=== PATIENT | male | born 1950 | race Caucasian/White ===

== ENCOUNTER 2020-12-11 05:02 | Inpatient (IN) ==
--- NOTE | 2020-11-13 15:18 | PAT Medication Instructions ---
Medication Instructions Date of Service November 13, 2020 Home Medications acetaminophen [Tylenol] 325 mg PO QID PRN aspirin 81 mg PO QAM bumetanide [Bumex] 0.25 mg PO QAM carvedilol 6.25 mg PO HS cholecalciferol (vitamin D3) [Vitamin D3] 25 mcg PO QAM clopidogrel [Plavix] 75 mg PO QAM ferrous sulfate 324 mg PO QAM gabapentin 300 mg PO TID insulin glargine [Lantus U-100 Insulin] 65 unit SUBCUT QAM liraglutide [Victoza 2-Clem] 1.2 mg SUBCUT QAM lisinopril 2.5 mg PO HS rosuvastatin 40 mg PO HS spironolactone 25 mg PO QAM tamsulosin 0.4 mg PO QAM tramadol 50 mg PO Q8H PRN ASK your prescriber and surgeon clopidogrel [Plavix] 75 mg PO QAM (must be off medication for 7 days prior to surgery in order to get spinal anesthesia) DO NOT take the morning of surgery spironolactone 25 mg PO QAM liraglutide [Victoza 2-Clem] 1.2 mg SUBCUT QAM ferrous sulfate 324 mg PO QAM cholecalciferol (vitamin D3) [Vitamin D3] 25 mcg PO QAM bumetanide [Bumex] 0.25 mg PO QAM Take morning of surgery With a small sip of water, OTHERWISE NOTHING TO EAT OR DRINK AFTER MIDNIGHT: tamsulosin 0.4 mg PO QAM tramadol 50 mg PO Q8H PRN (okay to take up to 4 hours prior to surgery if needed) gabapentin 300 mg PO TID acetaminophen [Tylenol] 325 mg PO QID PRN (okay to take up to 4 hours prior to surgery if needed) aspirin 81 mg PO QAM Take evening before surgery acetaminophen [Tylenol] 325 mg PO QID PRN (if needed) carvedilol 6.25 mg PO HS gabapentin 300 mg PO TID lisinopril 2.5 mg PO HS rosuvastatin 40 mg PO HS tramadol 50 mg PO Q8H PRN (if needed) Insulin Dependent Diabetic Patients * Test your blood sugar the morning of surgery * If Blood Sugar is GREATER THAN 150, take HALF of your regular dose of: insulin glargine [Lantus U-100 Insulin] (32 units) * If Blood Sugar is LESS THAN 150, DO NOT TAKE ANY: insulin glargine [Lantus U- 100 Insulin] 65 unit SUBCUT QAM Other Notes If you have any questions please call us at [phone] or [phone] or [phone] or [phone]
--- NOTE | 2020-11-16 11:36 | Anesthesiology Consultation ---
Date of Service November 16, 2020 Assessment & Plan (1) Encounter for pre-operative examination: - Patient scheduled to see cardiology prior to surgery. Awaiting office visit note. - Hyperkalemia/anemia (on preop labs): Potassium 5.3 and H/H 10.9/31.7. No available comparison labs. Awaiting response from PCP. - Per assessment on 11/16: Travel screen- Lives in [facility]. Uses PPE. No known COVID-19 positive contacts or current COVID-19 related symptoms. Patient had initial COVID vaccine (second vaccine scheduled for 12/03). Surgeon arranging preop COVID testing. Awaiting results. - ASA/plavix instructions: ASA to be continued perioperatively. Patient made aware that in order for spinal anesthesia, Plavix needs to be held 7 days prior to surgery. Patient voiced understanding/will check if okay with cardiology. Chart Review Chart Review: Patient seen in Pre Admission Testing Teaching & Discussion Pre-Anesthesia Teaching/Discussion Notes: Instructed NPO after midnight before surgery,except medications with 15 cc of water. Medication instructions provided according to the PAT guidelines. History Surgery Operation Date: 12/11/20 08:35 Proposed Procedures p Left Total Knee Arthroplasty - Thomas Ling DO Height/Weight Height: 5 ft 7 in Weight: 84.9 kg Allergies Allergy/AdvReac Type Severity Reaction Status Date / Time morphine Allergy Mild felt funny Verified 11/08/20 14:04 Medications Home Medications Medication Instructions Recorded Confirmed Last Taken acetaminophen [Tylenol] 325 mg PO QID PRN 11/09/20 11/09/20 Unknown aspirin 81 mg PO QAM 11/09/20 11/09/20 Unknown bumetanide [Bumex] 0.25 mg PO QAM 11/09/20 11/09/20 Unknown carvedilol 6.25 mg PO HS 11/09/20 11/09/20 Unknown cholecalciferol (vitamin D3) 25 mcg PO QAM 11/09/20 11/09/20 Unknown [Vitamin D3] clopidogrel [Plavix] 75 mg PO QAM 11/09/20 11/09/20 Unknown ferrous sulfate 324 mg PO QAM 11/09/20 11/09/20 Unknown gabapentin 300 mg PO TID 11/09/20 11/09/20 Unknown insulin glargine [Lantus U-100 65 unit SUBCUT QAM 11/09/20 11/09/20 Unknown Insulin] liraglutide [Victoza 2-Clem] 1.2 mg SUBCUT QAM 11/09/20 11/09/20 Unknown lisinopril 2.5 mg PO HS 11/09/20 11/09/20 Unknown rosuvastatin 40 mg PO HS 11/09/20 11/09/20 Unknown spironolactone 25 mg PO QAM 11/09/20 11/09/20 Unknown tamsulosin 0.4 mg PO QAM 11/09/20 11/09/20 Unknown tramadol 50 mg PO Q8H PRN 11/09/20 11/09/20 Unknown Past Medical History Medical History BPH (benign prostatic hyperplasia) CAD (coronary artery disease) s/p multiple remote stents, CABG x5 (1995), CABG x3 (2018)- follows with [facility] (Dr. Richardson Valenzuela) Chronic back pain Chronic kidney disease, stage 3 Congestive heart failure Diabetes mellitus, type 2 IDDM Hyperlipidemia Hypertension Ischemic cardiomyopathy Macular degeneration receives injections in eyes Osteoarthritis Sleep apnea no device Spinal stenosis plan for spinal surgery (11/20/2020) at [facility] TIA (transient ischemic attack) 1996 Exercise / Class Metabolic Activity III < 4 Walking/Shop/Light housework (uses walker in setting of worsening knee pain) Past Surgical History Surgical History History of arthroscopy of right knee History of elbow surgery left tendon Hx of CABG CABG x5 (1995), CABG x3 (2018) Hx of repair of right rotator cuff S/P epidural steroid injection Past Anesthesia History No Hx of Anesthesia Complications and No Family Hx of Anesthesia Complications History of PONV No Hx of PONV and No Hx of Motion Sickness Social History Smoking Status: Former smoker Do You Dip or Chew Tobacco: No Smoking End Date: Quit 40 years ago Hx Alcohol Use: No Hx Substance Use: No substance use type: does not use Review of Systems Patient denies chest pain, shortness of breath, dyspnea on exertion, joint pain, reflux, cough, wheezing, palpitations. Physical Exam Vital Signs VITALS BP 88/50 (100s/70s earlier today > will continue monitoring and f/u with bull wheel worker at upcoming office visit) P 76 TEMP 98.0 SP02 100%RA RESP 18 PHYSICAL Full neck and c-spine range of motion. Full TMJ range of motion. TMD 3 finger breaths Mallampati Score 2 Dentition: no upper teeth Lungs: clear throughout to auscultation Cardiac: regular rate and rhythm, no murmurs noted Spine: normal Carotid arteries: negative bruit Extremities: no edema Testing Laboratory Results 11/16/20 12:20 11/16/20 12:20 PT 10.8 Seconds (9.0-12.0) 11/16/20 12:20 INR 1.1 (0.9-1.1) 11/16/20 12:20 APTT 26.9 Seconds (21.0-31.0) 11/16/20 12:20 Hemoglobin A1c 7.2 % (4.5-5.6) H 11/16/20 12:20 Urine Color Yellow 11/16/20 12:20 Urine Appearance Cloudy (Clear) A 11/16/20 12:20 Urine pH 5.0 (4.5-7.5) 11/16/20 12:20 Ur Specific Sh[place]an 1.018 (1.000-1.030) 11/16/20 12:20 Urine Protein 1+ (Negative) H 11/16/20 12:20 Urine Glucose (UA) Negative (Negative) 11/16/20 12:20 Urine Ketones Negative (Negative) 11/16/20 12:20 Urine Nitrite Negative (Negative) 11/16/20 12:20 Ur Leukocyte Esterase Negative (Negative) 11/16/20 12:20 Urine WBC (Auto) 1-5 /hpf (0-5) 11/16/20 12:20 Urine RBC (Auto) 0-4 /hpf (0-4) 11/16/20 12:20 U Hyaline Cast (Auto) 5-10 /lpf (0-5) H 11/16/20 12:20 U Epithel Cells (Auto) 10-20 /lpf (0-5) H 11/16/20 12:20 Urine Bacteria (Auto) Negative (Negative) 11/16/20 12:20 Blood Type O Positive 11/16/20 12:20 Antibody Screen NEGATIVE 11/16/20 12:20 Electrocardiogram Date: 11/16/20 SR with degree AVB at 72bpm. LAB. RBBB. Inferior infarct (When compared to 11/10/2013, PA interval has increased per bull wheel worker review) Chest X-Ray Date: 11/16/20 FINDINGS: Cardiac silhouette is mildly enlarged. Prior median sternotomy. Surgical clips project over the mediastinum. Coronary arterial stent. No pneumothorax, pleural effusion, airspace consolidation or overt pulmonary edema. Degenerative changes of the shoulders and spine. IMPRESSION: No acute process. Echocardiogram Date: 02/09/20 Mild LAD. Moderate LVD. Mild concentric LVH. There are segmental wall motion abnormalities involving the distal septum and apex. Other segments are not compensating and overall LV systolic function is moderately impaired. LVEF 40%. The features are consistent with ischemic dilated cardiomyopathy with moderate systolic dysfunction. Moderate diastolic dysfunction of the left ventricle. Mild right-sided chamber dilation. Aortic sclerosis. Mild TR. Compared to echo from 06/23/19, EF has slightly improved to 40% compared to previous EF of 35% per report. Cardiac Catheterization Date: 08/23/18 Severe three-vessel CAD. Status post CABG which at this point his only patent graft is a JAUREGUI to the diagonal branch which collateralizes the LAD. The other grafts are now all occluded. Severe LV dysfunction with EF around 25%. Widely patent iliacs on both sides. Patient had subsequent CABG
--- NOTE | 2020-11-16 13:00 | XRay Report ---
XR chest Pre-admission PA/Lat HISTORY: 70 years-old Male pat preoperative exam. COMPARISON: Chest radiograph 11/10/2013 TECHNIQUE: PA and lateral views of the chest FINDINGS: Cardiac silhouette is mildly enlarged. Prior median sternotomy. Surgical clips project over the media stinum. Coronary arterial stent. No pneumothorax, pleural effusion, airspace consolidation or overt p ulmonary edema. Degenerative changes of the shoulders and spine. IMPRESSION: No acute process. ACT 112: Negative or not required by law. The above report was generated using voice recognition software. It may contain grammatical, syntax o r spelling errors. Electronically signed by: Tyler Peterson M.D. 11/16/2020 12:59 PM
[2020-11-16 13:35] LABS: Basophils # (auto) 0.04 K/uL (0-0.2); Basophils % (auto) 0.6 %; Eosinophils # (auto) 0.26 K/uL (0-0.5); Eosinophils % (auto) 4.1 %; Hematocrit (blood only) 31.7 % (42-52); Hemoglobin 10.9 g/dL (14.0-18.0); Immature Granulocytes # (auto) 0.01 K/uL (0.00-0.02); Immature Granulocytes % (auto) 0.2 %; Lymphocytes # (auto) 1.08 K/uL (1.2-3.4); Mean Corpuscular Hemoglobin 30.5 pg (25-34); Mean Corpuscular Hgb Conc 34.4 g/dL (32-36); Mean Corpuscular Volume 88.8 fL (80-100); Mean Platelet Volume 9.6 fL (7.4-10.4); Monocytes # (auto) 0.68 K/uL (0.11-0.59); Monocytes % (auto) 10.7 %; Neutrophils # (auto) 4.28 K/uL (1.4-6.5); Neutrophils % (auto) 67.4 %; Platelet Count 227 K/uL (130-400); RDW Coefficient of Variation 13.3 % (11.5-14.5); RDW Standard Deviation 43.1 fL (36.4-46.3); Red Blood Count 3.57 M/uL (4.7-6.1); White Blood Count 6.35 K/uL (4.8-10.8)
[2020-11-16 13:51] LABS: Appearance Urine Cloudy (Clear); Bacteria Urine Automated Negative (Negative); Bilirubin Urine Negative (Negative); Blood Urine Negative (Negative); Color Urine Yellow; Glucose Urine UA Negative (Negative); Ketones Urine Negative (Negative); Leukocyte Esterase Urine Negative (Negative); Nitrite Urine Negative (Negative); Protein Urine 1+ (Negative); RBC Urine Automated 0-4 /hpf (0-4); Specific Gravity Urine 1.018 (1.000-1.030); Urobilinogen Urine Negative (Negative)
--- NOTE | 2020-11-16 13:56 | History & Physical Report ---
Date of Service November 16, 2020 date of surgery: 12/11/20 Procedure: Left Total Knee Arthroplasty Assessment & Plan (1) Osteoarthritis of left knee: Risks and benefits of procedure discussed in detail today, patient would like to proceed with a left total knee replacement at [facility] as scheduled. will obtain cardiac clearance from Dr Patel in [place] prior to surgery as well as obtain PATs at [facility]. Will place on ASA 81mg po bid x 1 month post op, f/u 2 weeks post op for routine post-operative care and x-ray, sooner if having any problems. will make arrangements for HHPT at the time of discharge. At this point in time, has failed conservative measures and would like to proceed with surgical intervention. The risks and benefits have been discussed including, but not limited to, risk of infection, nerve injury, stiffness, loss of motion, failure to improve, etc. Reasonable outcomes and options of treatment were discussed. An explanation of appropriate alternatives to the procedure that may be advantageous were discussed and their risks and benefits, as well as the risks and benefits of not proceeding with treatment. I offered to answer any additional inquiries concerning the treatment involved. All the patient's questions were answered. The patient is agreeable, understanding of the treatment plan and alternatives, and wishes to proceed with the treatment plan. History of Present Illness Chief Complaint: left knee pain Primary Care Provider: Marah Carroll MD betina is a 70 year old male who complains of left knee pain, presents for pre- op evaluation prior to a left total knee replacement by dr Ling at [facility]. he complains of pain and stiffness in the knee. Currently the patient states that the symptoms are moderate-severe. The pain is described as aching, sharp and throbbing. The symptoms are aggravated by ascending stairs, daily activities, first steps while awake walking. Prior NSAIDs include IBU and Aleve. He has been treated with previous cortisone injections in the past without much relief and uses crutches to assist with ambulation. Allergies Allergy/AdvReac Type Severity Reaction Status Date / Time morphine Allergy Mild felt funny Verified 11/08/20 14:04 Home Medications Medication Instructions Recorded Confirmed Type acetaminophen [Tylenol] 325 mg PO QID PRN 11/09/20 11/09/20 History aspirin 81 mg PO QAM 11/09/20 11/09/20 History bumetanide [Bumex] 0.25 mg PO QAM 11/09/20 11/09/20 History carvedilol 6.25 mg PO HS 11/09/20 11/09/20 History cholecalciferol (vitamin D3) 25 mcg PO QAM 11/09/20 11/09/20 History [Vitamin D3] clopidogrel [Plavix] 75 mg PO QAM 11/09/20 11/09/20 History ferrous sulfate 324 mg PO QAM 11/09/20 11/09/20 History gabapentin 300 mg PO TID 11/09/20 11/09/20 History insulin glargine [Lantus U-100 65 unit SUBCUT QAM 11/09/20 11/09/20 History Insulin] liraglutide [Victoza 2-Clem] 1.2 mg SUBCUT QAM 11/09/20 11/09/20 History lisinopril 2.5 mg PO HS 11/09/20 11/09/20 History rosuvastatin 40 mg PO HS 11/09/20 11/09/20 History spironolactone 25 mg PO QAM 11/09/20 11/09/20 History tamsulosin 0.4 mg PO QAM 11/09/20 11/09/20 History tramadol 50 mg PO Q8H PRN 11/09/20 11/09/20 History Past Med/Surg History Medical History BPH (benign prostatic hyperplasia) CAD (coronary artery disease) s/p multiple remote stents, CABG x5 (1995), CABG x3 (2018)- follows with [facility] (Dr. Richardson Valenzuela) Chronic back pain Chronic kidney disease, stage 3 Congestive heart failure Diabetes mellitus, type 2 IDDM Hyperlipidemia Hypertension Ischemic cardiomyopathy Macular degeneration receives injections in eyes Osteoarthritis Sleep apnea no device Spinal stenosis plan for spinal surgery (11/20/2020) at [facility] TIA (transient ischemic attack) 1996 Surgical History History of arthroscopy of right knee History of elbow surgery left tendon Hx of CABG CABG x5 (1995), CABG x3 (2018) Hx of repair of right rotator cuff S/P epidural steroid injection Social History Smoking Status: Former smoker Smoking End Date: Quit 40 years ago; Second Hand Exposure: No; Do You Dip or Chew Tobacco: No; Tobacco Cessation Education Requested by Patient: No Hx Alcohol Use: No Hx Substance Use: No Preferred Language: Telugu Communication Ability: Effective Mat Packer Required: No Beliefs That Will Affect Care: None Current Living Situation: Spouse Other Information That Helps Us Care for You: No Feels Safe at Home: Yes Safety Concerns: Feels Safe At This Time Assistive Devices: Walker Review of Systems Review of Systems: All systems reviewed & are unremarkable except as noted in HPI & below Constitutional: no fever, no chills and no sweats Respiratory: no cough and no dyspnea Cardiovascular: no chest pain, no dyspnea and no orthopnea Gastrointestinal: no abdominal pain, no nausea and no vomiting Musculoskeletal: as per Subjective / HPI Physical Exam Physical Exam: HT: 5ft 7in WT: 84.9kg BP: 102/70 Pulse: 78 Constitutional: WD/WN, vitals as above no acute distress Respiratory: normal respiratory effort, lungs clear to auscultation no respiratory distress, no labored breathing and does not use accessory muscles Cardiovascular: RRR, no murmur, no edema Gastrointestinal (Abdomen): normal bowel sounds, soft, nontender, no hepatosplenomegaly Musculoskeletal: Knee: + knee abnormal to inspection (Left Knee- ), + deformity (varus alignment), + effusion (+1 effusion), + limited ROM of knee (ROM 0/3/110), + knee ROM with crepitation, + joint line tenderness (medial joint line) and + Td's sign positive; no skin erythema, no ecchymosis, no valgus laxity, no varus laxity, anterior drawer test negative, Ella's sign negative and pivot shift test negative Results & Data Results & Data ([facility]) Laboratory Results Laboratory Results WBC 6.35 K/uL (4.8-10.8) 11/16/20 12:20 RBC 3.57 M/uL (4.7-6.1) L 11/16/20 12:20 Hgb 10.9 g/dL (14.0-18.0) L 11/16/20 12:20 Hct 31.7 % (42-52) L 11/16/20 12:20 MCV 88.8 fL (80-100) 11/16/20 12:20 MCH 30.5 pg (25-34) 11/16/20 12:20 MCHC 34.4 g/dL (32-36) 11/16/20 12:20 RDW Std Deviation 43.1 fL (36.4-46.3) 11/16/20 12:20 RDW Coeff of Akila 13.3 % (11.5-14.5) 11/16/20 12:20 Plt Count 227 K/uL (130-400) 11/16/20 12:20 MPV 9.6 fL (7.4-10.4) 11/16/20 12:20 Immature Gran % (Auto) 0.2 % 11/16/20 12:20 Neut % (Auto) 67.4 % 11/16/20 12:20 Lymph % (Auto) 17.0 % 11/16/20 12:20 [place] % (Auto) 10.7 % 11/16/20 12:20 Eos % (Auto) 4.1 % 11/16/20 12:20 Baso % (Auto) 0.6 % 11/16/20 12:20 Neut # (Auto) 4.28 K/uL (1.4-6.5) 11/16/20 12:20 Lymph # (Auto) 1.08 K/uL (1.2-3.4) L 11/16/20 12:20 [place] # (Auto) 0.68 K/uL (0.11-0.59) H 11/16/20 12:20 Eos # (Auto) 0.26 K/uL (0-0.5) 11/16/20 12:20 Baso # (Auto) 0.04 K/uL (0-0.2) 11/16/20 12:20 Immature Gran # (Auto) 0.01 K/uL (0.00-0.02) 11/16/20 12:20 Urine Color Yellow 11/16/20 12:20 Urine Appearance Cloudy (Clear) A 11/16/20 12:20 Urine pH 5.0 (4.5-7.5) 11/16/20 12:20 Ur Specific [place] 1.018 (1.000-1.030) 11/16/20 12:20 Urine Protein 1+ (Negative) H 11/16/20 12:20 Urine Glucose (UA) Negative (Negative) 11/16/20 12:20 Urine Ketones Negative (Negative) 11/16/20 12:20 Urine Blood Negative (Negative) 11/16/20 12:20 Urine Nitrite Negative (Negative) 11/16/20 12:20 Urine Bilirubin Negative (Negative) 11/16/20 12:20 Urine Urobilinogen Negative (Negative) 11/16/20 12:20 Ur Leukocyte Esterase Negative (Negative) 11/16/20 12:20 Urine WBC (Auto) 1-5 /hpf (0-5) 11/16/20 12:20 Urine RBC (Auto) 0-4 /hpf (0-4) 11/16/20 12:20 U Hyaline Cast (Auto) 5-10 /lpf (0-5) H 11/16/20 12:20 U Epithel Cells (Auto) 10-20 /lpf (0-5) H 11/16/20 12:20 Urine Bacteria (Auto) Negative (Negative) 11/16/20 12:20 Diagnostic Findings Standing weight bearing flexed knee PA views reveal [id number] articulation of the medial compartment of the knee. Osteophyte formation and subchondral sclerosis is noted. The patellofemoral articulation shows advanced DJD. ASSESSMENT: Severe anteromedial arthritis of the knee. with surgical clips noted from prior bypass surgery.
[2020-11-16 14:01] LABS: Estimated Average Glucose 160 mg/dl; Hemoglobin A1C 7.2 % (4.5-5.6)
[2020-11-16 14:02] LABS: INR 1.1 (0.9-1.1); Partial Thromboplastin Time 26.9 Seconds (21.0-31.0); Prothrombin Time 10.8 Seconds (9.0-12.0)
[2020-11-16 14:16] LABS: Albumin Level 3.5 gm/dl (3.4-5.0); BUN Creatinine Ratio 17.4 (10-20); Calcium 8.6 mg/dl (8.5-10.1); Creatinine Clr Calc Pharmacy 38.2 ml/min; Est GFR (African American) 40.8; Est GFR (Non-African American) 35.2; Potassium 5.3 mmol/L (3.5-5.1)
--- NOTE | 2020-11-17 05:31 | Electrocardiogram Report ---
Test Reason : Blood Pressure : / mmHG Vent. Rate : 072 BPM Atrial Rate : 072 BPM P-R Int : 244 ms QRS Dur : 140 ms QT Int : 386 ms P-R-T Axes : 000 -65 007 degrees QTc Int : 422 ms Sinus rhythm with 1st degree A-V block Left axis deviation Right bundle branch block Inferior infarct , age undetermined Abnormal ECG When compared with ECG of 10-NOV-2013 09:22, TN interval has increased Confirmed by Tre Mosqueda ([id number]) on 11/17/2020 5:31:04 AM Referred By: Thomas Ling Confirmed By:Tre Mosqueda
[2020-12-11] MEDS: GABAPENTIN 300 MG CAP PO SCH ×4 (05:30→20:41)
[2020-12-11] MEDS ORDERED: CeleBREX 200 MG CAP PO SCH (06:00)
[2020-12-11] MEDS ORDERED: ceFAZolin 2000MG 2,000 MG/15 ML SYR IV SCH (06:00)
[2020-12-11] MEDS ORDERED: FAMOTIDINE 20 MG TAB PO SCH (06:00)
[2020-12-11] MEDS ORDERED: ROPIVACAINE 0.5% HCL/PF 150 MG, BUPIVACAINE 0.75% MPF 20 ML, EPINEPHrine 30MG/30ML (OR ... INSTIL SCH (06:00)
[2020-12-11] MEDS ORDERED: LR 500ML BOLUS, THEN 15ML/HR IV SCH (06:00)
[2020-12-11] MEDS ORDERED: METOCLOPRAMIDE HCL 10 MG TABLET PO SCH (06:00)
[2020-12-11] MEDS ORDERED: oxyCODONE HCL 10 MG TABCR (OxyCONTIN) PO SCH (06:00)
[2020-12-11] MEDS ORDERED: TRANEXAMIC ACID 1,000 MG **IV Intra-op IV SCH (06:00)
[2020-12-11] MEDS ORDERED: ACETAMINOPHEN 500 MG TAB PO SCH (06:00)
[2020-12-11] MEDS ORDERED: TRANEXAMIC ACID 1,000 MG **IV Pre-op IV SCH (06:00)
[2020-12-11] MEDS ORDERED: ROPIVACAINE 0.5% 5 MG/ML 30 ML VIAL ONE (06:16)
[2020-12-11] MEDS ORDERED: EPINEPHrine INJ 1 MG/ML AMP ONE (06:16)
[2020-12-11] MEDS ORDERED: BUPIVACAINE 0.5 % 5 MG/1 ML PF 10ML VIAL ONE (06:16)
[2020-12-11] MEDS ORDERED: MIDAZOLAM HCL 1 MG/ML 2ML VIAL ONE (06:53)
[2020-12-11] MEDS ORDERED: fentaNYL citrate 100 MCG/2 ML VIAL ONE (06:54)
[2020-12-11] MEDS ORDERED: fentaNYL citrate 100 MCG/2 ML VIAL IV PRN (07:06)
[2020-12-11] MEDS ORDERED: BACITRACIN INJ 50,000 UNIT VIAL ONE (07:06)
[2020-12-11] MEDS ORDERED: ATROPINE SULFATE 0.1 MG/ML 10ML SYR IV PRN (07:06)
[2020-12-11] MEDS ORDERED: ONDANSETRON INJ 2 MG/ML 2 ML VIAL IV PRN ×2 (07:06→10:26)
[2020-12-11] MEDS ORDERED: ORTHO JOINT ANESTHETIC ONE (07:06)
[2020-12-11] MEDS ORDERED: PHENYLEPHRINE 100MCG/ML 5ML SYR IV PRN (07:06)
[2020-12-11] MEDS ORDERED: ePHEDrine sulfate 50 MG/ML AMP IV PRN (07:06)
[2020-12-11] MEDS ORDERED: LABETALOL HCL IV 5 MG/ML 20ML IV PRN (07:06)
--- NOTE | 2020-12-11 07:26 | History & Physical Bridge Note ---
Date of Service December 11, 2020 History & Physical Bridge Note I have examined the patient, reviewed the History & Physical and in the interval since the performance of the History & Physical I have noted the following changes of clinical significance: no changes noted
[2020-12-11] MEDS ORDERED: PHENYLEPHRINE 100MCG/ML 5ML SYR ONE (07:46)
[2020-12-11] MEDS ORDERED: PROPOFOL IV EMULSION 10 MG/ML 20 ML VIAL IV ONE ×2 (07:46→08:43)
[2020-12-11] MEDS ORDERED: LIDOCAINE HCL 2% 2 ML VIAL/AMP(20MG/ML) INFIL ONE (07:46)
[2020-12-11] MEDS ORDERED: ePHEDrine sulfate 50 MG/ML SYR ONE (07:46)
--- NOTE | 2020-12-11 08:35 | Operative Report ---
Post Operative Report Pre & Post Diagnosis Operation Date: 12/11/20 07:15 Pre-Op Diagnosis: Osteoarthritis, Left Knee Post-Op Diagnosis: Osteoarthritis, Left Knee I identified the patient and participated in the time-out.: Yes Procedure Operation Date: 12/11/20 07:15 Actual Procedures p Left Total Knee Arthroplasty(Left utilizing [employer]iz [employer] Nephew journey 2 nonblock total knee arthroplasty size 5 femur 5 tibia 10 polyethylene) 32 oval patella- Thomas Ling DO Surgeon Thomas Ling DO Asset Availability Leader Christoph BONILLA Estimated Blood Loss 5 Findings Consistent with Post-Op Diagnosis Patient presents with severe end-stage DJD left knee with varus alignment 10 degree flexion contracture subchondral sclerosis marginal osteophytes eburnated [id number] medial compartment with moderate to large effusion Specimens Bone and cartilage Drains Medium bore Hemovac Anesthesia Type MAC Spinal Regional Complications none Disposition Accompanied Patient To Recovery: No Disposition: Recovery Room Indications Patient presents with severe end-stage tricompartmental degenerative joint disease no response to conservative management patient is failed attempted conservative management daily physical therapy anti-inflammatories relative rest activity modification corticosteroid injection viscosupplementation the above intraoperative findings were noted. Description of Procedure After proper prepping and draping of the left lower extremity anterior midline incision was made over the region of the extensor extensor mechanism after meticulous hemostasis was obtained and maintained in subcutaneous tissues a medial parapatellar incision was made The patella was subluxed lateralward the medial lateral gutter were cleaned from any hypertrophic synovitis and scar tissue of the distal femoral block was placed and the distal femoral osteotomy cut was made subsequently the chamfers anterior and posterior osteotomy cuts were made utilizing the 4-in-1 block the tibia was subsequently subluxed anteriorward medial and ateral meniscal remnants were excised in their entirety remnants of the anterior and posterior cruciate ligaments were excised in their entirety excellent exposure of the proximal tibia was obtained the tibial osteotomy guide was placed on the proximal tibial osteotomy cut was made once again the knee was irrigated with copious amounts of sterile saline solution the patella was subsequently everted lateralward thickened scar tissue around the patella was removed the patella was subsequently cut utilizing a freehand technique and was drilled prepared for final preparation and placement of patella socially flexion-extension gaps were checked and the equal and symmetric trials were placed to the appropriate femoral and tibial trials with poly-spacer being placed for equal flexion and extension gaps and full range of motion including extension to 0 and flexion to 140 the trial components after having been taken to recovery range of motion was subsequently removed meticulous hemostasis was obtained and maintained subsequently a knee block injection of joint cocktail including ropivacaine 0.5% 150 mg. Bupivacaine 0.5% epinephrine 1-200,030 mL's toradol 30 mg dexamethasone 4 mg ketamine 10 mg clonidine 100 micrograms normal saline solution 30 mg was infiltrated into the soft tissues of the posterior knee medial lateral gutters and periosteal synovium special attention was paid to protect neurovascular structures at all times subsequently trial components having been removed the knee was irrigated with sterile saline solution. debris was removed the proximal tibia was subsequently prepared and was made ready for the placement of the tibial component tibial component was also cemented and tamped into position the femoral component was subsequently placed and cemented in the position the patellar component was subsequently cemented in position because hemostasis once again obtained and maintained wound having been thoroughly irrigated with debridement and debridement lavage was performed as well as a medial parapatellar incision closed with #1 Vicryl in interrupted fashion subcutaneous was closed with #2 Vicryl skin was closed with skin clips. PA-C was necessary for prepping and drapping as well as wound closure of deep fascia Sub cutaneous tissue and skin and was necessary for the case. A sterile compressive dressing was placed patient was taken to recovery in stable condition of report dictated by Sushil I attest to the content of the Intraoperative Record and any orders documented therein. Any exceptions are noted below. I attest to the content of the Intraoperative Record and any orders documented therein. Any exceptions are noted below.
--- NOTE | 2020-12-11 09:44 | XRay Report ---
XR knee LT 1 or 2V routine CLINICAL HISTORY: Surgical Post Op COMPARISON: None. DISCUSSION: There are postsurgical changes of a total left knee arthroplasty and patellar resurfacing . The femoral tibial components appear well seated. There is an overlying surgical drain. There is ga s present within the soft tissues consistent with recent surgery. Vascular silvia are present within the medial aspect of the leg. IMPRESSION: Postsurgical changes of a total left knee arthroplasty. ACT 112: Negative or not required by law. Electronically signed by: Sabino Manuel M.D. 12/11/2020 9:42 AM
--- NOTE | 2020-12-11 10:01 | Anesthesiology Progress Note ---
Date of Service December 11, 2020 Anesthesia Post Procedure Vital Signs Vital Signs: Temp Pulse Pulse Resp BP BP Pulse Ox 12/11/20 09:50 36.3 C L 68 16 138/72 93 12/11/20 09:40 70 13 146/74 H 96 12/11/20 09:30 71 12 146/71 H 100 12/11/20 09:20 74 10 L 135/68 100 12/11/20 09:11 36.8 C 75 12 145/71 H 100 12/11/20 05:48 36.7 C 85 18 131/70 96 Pain Intensity Left Knee: Pain Intensity: 2 Transfer of Care Handoff Completed per policy Notes Mental Status: alert / awake / arousable Patient Amnestic to Procedure: Yes Nausea / Vomiting: adequately controlled Pain: adequately controlled Airway Patency, RR, SpO2: stable & adequate BP & HR: stable & adequate Hydration State: stable & adequate Neuraxial Anesthesia: was administered and sensory block is resolving Anesthetic Complications: no major complications apparent and Pt Satisfied with anesthetic care
[2020-12-11] MEDS ORDERED: MAGNESIUM HYDROXIDE SUSP 30 ML UDC PO PRN (10:26)
[2020-12-11] MEDS ORDERED: diphenhydrAMINE Capsule 25 MG CAP PO PRN (10:26)
[2020-12-11] MEDS ORDERED: bisacodyL 10 MG SUPP PR PRN (10:26)
[2020-12-11] MEDS ORDERED: NALOXONE HCL 0.4 MG/1 ML VIAL/CARP IV PRN (10:26)
[2020-12-11] MEDS ORDERED: METOCLOPRAMIDE HCL INJ 5 MG/ML 2 ML VIAL IV PRN (10:26)
[2020-12-11] MEDS ORDERED: PHARMACY GLYCEMIC MGMT CONSULT PRN (10:37)
--- NOTE | 2020-12-11 10:43 | Pharmacy Report ---
Pharmacy Glycemic Short Note 2 - Date of Service December 11, 2020 - Glycemic Short BSG Results (Last 24 hours): 12/11/20 12/11/20 05:28 09:20 POC Glucose 107 H 127 H OUTPATIENT ANTIDIABETIC REGIMEN: * Lantus 65 units, victoza * A1c 7.2% ASSESSMENT: * 70 year old male now s/p L TKA, POD 0. Type 2 diabetic managed on insulin at home. Pharmacy consulted to assist with glycemic management postop * Will plan to utilize stress of 2 dosing of total outpt insulin dose to determine insulin dosing PLAN FOR INPATIENT GLYCEMIC CONTROL: * Hold outpatient oral diabetes medications * Basal insulin * Lantus 40 x 1 * Bolus insulin * NovoLog per scale ACHS or Q6hrs while NPO * Goal Range: Low 110 mg/dL - High 140 mg/dL * Correction Factor: 20 mg/dL/unit * Nutritional / Prandial insulin per carb ratio of 1 unit per 6 grams CHO consumed PLAN FOR DISCHARGE: * A1c of 7.2% - reasonable to continue home diabetic regimen on discharge as long as no contraindications exist.
[2020-12-11] MEDS ORDERED: CARBOHYDRATES FOR HYPOGLYCEMIA PO PRN (10:45)
[2020-12-11] MEDS ORDERED: GLUCAGON FOR INJ 1 MG VIAL IM PRN (10:45)
[2020-12-11] MEDS ORDERED: GLUCOSE 40% GEL 15 GM TUBE PO PRN (10:45)
[2020-12-11] MEDS ORDERED: GLUCOSE 10 TABS/TUBE PO PRN (10:45)
[2020-12-11] MEDS ORDERED: DEXTROSE 50% 50 ML SYRINGE IV PRN (10:45)
[2020-12-11] MEDS: SODIUM CHLORIDE 0.9% 1000ML 1,000 ML IV SCH ×2 (11:47→19:19)
[2020-12-11] MEDS ORDERED: INSULIN GLARGINE SOLOSTAR 100 UNITS/ML 3 ML PEN SC ONE (12:00)
[2020-12-11] MEDS: INSULIN ASPART 100 UNITS/ML 3 ML PEN SC SCH ×3 (12:49→20:44)
[2020-12-11] MEDS: KETOROLAC TROMETHAMINE 15 MG/ML VIAL IV SCH ×2 (12:51→17:50)
[2020-12-11] MEDS: ACETAMINOPHEN 500 MG TAB PO SCH ×2 (13:54→21:21)
[2020-12-11] MEDS: ceFAZolin 2000MG 2,000 MG/15 ML SYR IV SCH (15:46)
[2020-12-11] MEDS: oxyCODONE HCL IR 5 MG TAB (IMMEDIATE RELEASE) PO PRN (18:25)
[2020-12-11] MEDS: SENNA 8.6 MG TAB PO SCH (20:42)
[2020-12-11] MEDS: ROSUVASTATIN CALCIUM 20 MG TAB PO SCH (20:43)
[2020-12-11] MEDS: carvediloL 6.25 MG TAB PO SCH (20:43)
[2020-12-11] MEDS: DOCUSATE SODIUM 100 MG CAP PO SCH (20:43)
[2020-12-11] MEDS: ASPIRIN 81 MG ECTAB PO SCH (20:44)
[2020-12-12] MEDS: ceFAZolin 2000MG 2,000 MG/15 ML SYR IV SCH
[2020-12-12] MEDS: KETOROLAC TROMETHAMINE 15 MG/ML VIAL IV SCH ×2 (00:01→05:33)
[2020-12-12] MEDS: oxyCODONE HCL IR 5 MG TAB (IMMEDIATE RELEASE) PO PRN ×5 (00:06→23:26)
[2020-12-12] MEDS: ACETAMINOPHEN 500 MG TAB PO SCH ×3 (05:33→20:50)
[2020-12-12 06:17] LABS: Hematocrit (blood only) 25.6 % (42-52); Mean Corpuscular Hemoglobin 30.7 pg (25-34); Mean Corpuscular Hgb Conc 35.2 g/dL (32-36); Mean Corpuscular Volume 87.4 fL (80-100); Mean Platelet Volume 9.3 fL (7.4-10.4); Platelet Count 190 K/uL (130-400); RDW Coefficient of Variation 12.8 % (11.5-14.5); RDW Standard Deviation 41.5 fL (36.4-46.3); Red Blood Count 2.93 M/uL (4.7-6.1); White Blood Count 9.54 K/uL (4.8-10.8)
[2020-12-12 06:43] LABS: BUN Creatinine Ratio 20.3 (10-20); Calcium 8.4 mg/dl (8.5-10.1); Creatinine Clr Calc Pharmacy 35.2 ml/min; Est GFR (African American) 36.8; Est GFR (Non-African American) 31.7; Potassium 5.2 mmol/L (3.5-5.1)
[2020-12-12] MEDS: CHOLECALCIFEROL 1,000 UNITS 25 MCG TAB PO SCH (08:33)
[2020-12-12] MEDS: DOCUSATE SODIUM 100 MG CAP PO SCH ×2 (08:35→20:50)
[2020-12-12] MEDS: TAMSULOSIN HCL 0.4 MG CAP PO SCH (08:35)
[2020-12-12] MEDS: MULTIVITAMIN TAB PO SCH (08:35)
[2020-12-12] MEDS: GABAPENTIN 300 MG CAP PO SCH ×3 (08:35→20:50)
[2020-12-12] MEDS: CLOPIDOGREL BISULFATE 75 MG TAB PO SCH (08:35)
[2020-12-12] MEDS: BUMETANIDE 1 MG TAB PO SCH (08:36)
[2020-12-12] MEDS: FERROUS SULFATE 325 MG TAB PO SCH (08:36)
[2020-12-12] MEDS: ASPIRIN 81 MG ECTAB PO SCH ×2 (08:36→20:51)
[2020-12-12] MEDS: INSULIN ASPART 100 UNITS/ML 3 ML PEN SC SCH ×4 (08:40→20:47)
[2020-12-12] MEDS ORDERED: INSULIN GLARGINE SOLOSTAR 100 UNITS/ML 3 ML PEN SC SCH (09:00)
--- NOTE | 2020-12-12 09:17 | Orthopedic Progress Note ---
Date of Service December 12, 2020 Assessment & Plan (1) History of total left knee replacement: POD #1 s/p Left TKA pt/ot dvt proph with RADHA/SCD/resume his Plavix and ASA plan for d/c home with home health PT will obtain hospitalist consult , has h/o CAD, DM, CKD with elevated BUN/Cre post op. will d/c Toradol, cont IV fluids. Admission and Anticipated Discharge Date Admission Date: December 11, 2020 Subjective POD #1 s/p Left TKA Review of Systems Constitutional: no fever, no chills and no sweats Respiratory: no cough and no dyspnea Cardiovascular: no chest pain and no dyspnea Gastrointestinal: no abdominal pain, no nausea and no vomiting Physical Exam Physical Exam: Vital Signs Temp 36.6 C 12/12/20 07:15 Pulse 76 12/12/20 07:15 Resp 16 12/12/20 07:15 BP 165/96 H 12/12/20 07:15 Pulse Ox 98 12/12/20 07:15 Intake & Output 12/11/20 12/12/20 12/12/20 18:59 06:59 18:59 Intake Total 3108.333 / 4203.33 3 1095 / 4203.333 Output Total 350 / 1050 700 / 1050 Balance 2758.333 / 3153.33 3 395 / 3153.333 Weight 85.6 kg Intake: IV 1358.333 / 2453.33 3 1095 / 2453.333 Lr 1,000 ml @ 15 mls/hr IV . 500 / 500 Q24H [facility] Rx#:[id number] Nss 1000ML 1,0 00 ml @ 100 mls/ 658.333 / 1606.828 9598 / 1753.333 hr IV .Q10H [facility] Rx#:[id number] TRANEXAMIC ACI D / 0.7% NACL 1, 200 / 200 000 mg In 100 ml @ 600 mls/hr IV TODAY@0600 [facility] Rx#:[id number] IV Perioperative 1500 / 1500 Oral 250 / 250 Output: Urine 300 / 800 500 / 800 Estimated Blood Loss 5 / 5 Drain Output 45 / 245 200 / 245 Left Knee Hemo vac 45 / 245 200 / 245 Constitutional: WD/WN, vitals as above no acute distress Musculoskeletal: Left Leg: NVDI, calf SNT, negative vanessa sign. DP palpable, able to wiggle toes/ankle movement without difficulty. dressing clean dry and intact. Results & Data ([facility]) Vital Signs (Past 12 Hours) Vital Signs Temp Pulse Resp BP Pulse Ox 12/12/20 07:15 36.6 C 76 16 165/96 H 98 12/12/20 03:04 36.4 C L 75 20 160/83 H 94 12/11/20 22:44 36.6 C 74 18 162/80 H 95 Laboratory Results Laboratory Results WBC 9.54 K/uL (4.8-10.8) 12/12/20 06:02 RBC 2.93 M/uL (4.7-6.1) L 12/12/20 06:02 Hgb 9.0 g/dL (14.0-18.0) L 12/12/20 06:02 Hct 25.6 % (42-52) L 12/12/20 06:02 MCV 87.4 fL (80-100) 12/12/20 06:02 MCH 30.7 pg (25-34) 12/12/20 06:02 MCHC 35.2 g/dL (32-36) 12/12/20 06:02 RDW Std Deviation 41.5 fL (36.4-46.3) 12/12/20 06:02 RDW Coeff of Akila 12.8 % (11.5-14.5) 12/12/20 06:02 Plt Count 190 K/uL (130-400) 12/12/20 06:02 MPV 9.3 fL (7.4-10.4) 12/12/20 06:02 Immature Gran % (Auto) 0.2 % 11/16/20 12:20 Neut % (Auto) 67.4 % 11/16/20 12:20 Lymph % (Auto) 17.0 % 11/16/20 12:20 [place] % (Auto) 10.7 % 11/16/20 12:20 Eos % (Auto) 4.1 % 11/16/20 12:20 Baso % (Auto) 0.6 % 11/16/20 12:20 Neut # (Auto) 4.28 K/uL (1.4-6.5) 11/16/20 12:20 Lymph # (Auto) 1.08 K/uL (1.2-3.4) L 11/16/20 12:20 [place] # (Auto) 0.68 K/uL (0.11-0.59) H 11/16/20 12:20 Eos # (Auto) 0.26 K/uL (0-0.5) 11/16/20 12:20 Baso # (Auto) 0.04 K/uL (0-0.2) 11/16/20 12:20 Immature Gran # (Auto) 0.01 K/uL (0.00-0.02) 11/16/20 12:20 PT 10.8 Seconds (9.0-12.0) 11/16/20 12:20 INR 1.1 (0.9-1.1) 11/16/20 12:20 APTT 26.9 Seconds (21.0-31.0) 11/16/20 12:20 PTT Ratio 1.0 11/16/20 12:20 Sodium 138 mmol/L (136-145) 12/12/20 06:02 Potassium 5.2 mmol/L (3.5-5.1) H 12/12/20 06:02 Chloride 108 mmol/L (98-107) H 12/12/20 06:02 Carbon Dioxide 27 mmol/L (21-32) 12/12/20 06:02 Anion Gap 2.0 (3-11) L 12/12/20 06:02 BUN 42 mg/dl (7-18) H 12/12/20 06:02 Creatinine 2.07 mg/dl (0.6-1.4) H 12/12/20 06:02 Est Cr Clr Drug Dosing 35.2 ml/min 12/12/20 06:02 Est GFR ( Amer) 36.8 12/12/20 06:02 Est GFR (Non-Af Amer) 31.7 12/12/20 06:02 BUN/Creatinine Ratio 20.3 (10-20) H 12/12/20 06:02 Glucose 197 mg/dl (70-99) H 12/12/20 06:02 POC Glucose 176 mg/dl (70-99) H 12/12/20 08:16 Estimat Average Glucose 160 mg/dl 11/16/20 12:20 Hemoglobin A1c 7.2 % (4.5-5.6) H 11/16/20 12:20 Calcium 8.4 mg/dl (8.5-10.1) L 12/12/20 06:02 Albumin 3.5 gm/dl (3.4-5.0) 11/16/20 12:20 Urine Color Yellow 11/16/20 12:20 Urine Appearance Cloudy (Clear) A 11/16/20 12:20 Urine pH 5.0 (4.5-7.5) 11/16/20 12:20 Ur Specific [place] 1.018 (1.000-1.030) 11/16/20 12:20 Urine Protein 1+ (Negative) H 11/16/20 12:20 Urine Glucose (UA) Negative (Negative) 11/16/20 12:20 Urine Ketones Negative (Negative) 11/16/20 12:20 Urine Blood Negative (Negative) 11/16/20 12:20 Urine Nitrite Negative (Negative) 11/16/20 12:20 Urine Bilirubin Negative (Negative) 11/16/20 12:20 Urine Urobilinogen Negative (Negative) 11/16/20 12:20 Ur Leukocyte Esterase Negative (Negative) 11/16/20 12:20 Urine WBC (Auto) 1-5 /hpf (0-5) 11/16/20 12:20 Urine RBC (Auto) 0-4 /hpf (0-4) 11/16/20 12:20 U Hyaline Cast (Auto) 5-10 /lpf (0-5) H 11/16/20 12:20 U Epithel Cells (Auto) 10-20 /lpf (0-5) H 11/16/20 12:20 Urine Bacteria (Auto) Negative (Negative) 11/16/20 12:20 Blood Type O Positive 11/16/20 12:20 Antibody Screen NEGATIVE 11/16/20 12:20 Diagnostic Findings XR knee LT 1 or 2V routine CLINICAL HISTORY: Surgical Post Op COMPARISON: None. DISCUSSION: There are postsurgical changes of a total left knee arthroplasty and patellar resurfacing. The femoral tibial components appear well seated. There is an overlying surgical drain. There is gas present within the soft tissues consistent with recent surgery. Vascular silvia are present within the medial aspect of the leg. IMPRESSION: Postsurgical changes of a total left knee arthroplasty
--- NOTE | 2020-12-12 12:30 | Hospitalist Consultation ---
Date of Consultation December 12, 2020 Assessment & Plan (1) S/P total knee arthroplasty: POD #[address] Ling Estimated blood loss 5 mL Hemovac drain currently in place Pain generally controlled Further management per orthopedics (2) Spinal stenosis: Patient chronically takes tramadol for pain relief [facility] reviewed MME 20 All tramadol ordered through [facility] No benzodiazepines or other opiates or narcotics reported (3) Diabetes mellitus, type 2: Managed outpatient and well controlled Continue usual home medications Hemoglobin A1c is 7.2% Positive for neuropathy -continue gabapentin 3 times daily Will modify NovoLog sliding scale insulin * NovoLog sliding scale with basal insulin Lantus of 15 units twice daily * Patient currently on 45 units daily of Lantus * Home dose of Lantus is 57 units daily * Continue Lantus 45 units daily and continue correction factor on sliding scale NovoLog to 15 mg/Lois/unit and carbohydrate ratio of 7 g per carbohydrate per unit of NovoLog * Continue with diabetic diet (4) CAD (coronary artery disease): No chest pain or tightness Patient with history of CABG. * 5 vessel CABG in 1995 * 3 vessel CABG in 2019 * Multiple PCI with stent placement Continue aspirin, carvedilol, rosuvastatin, and Bumex. Anticipate resuming clopidogrel tomorrow (5) Anemia: Hemoglobin 9.0 g/Lois EBL reported is 5 mL but patient is dropped 1.9 g/Lois since surgery Hemodynamically stable Minimal output from Hemovac drain Check repeat CBC with morning labs Continue ferrous sulfate (6) Macular degeneration: No outpatient treatment Patient denies any acute vision changes Recommend following up with outpatient concrete pavement installer (7) Hypertension: Continue carvedilol and Bumex Hemodynamically stable (8) Hyperlipidemia: Continue rosuvastatin (9) Chronic kidney disease, stage 3: Creatinine 2.07 This appears to be close to baseline Check repeat PRP in the morning (10) BPH (benign prostatic hyperplasia): Continue tamsulosin (11) DVT prophylaxis: Anticipate resuming aspirin and clopidogrel tomorrow Ambulate per orthopedics Thank you very much for including us in the care of this patient. We will continue to follow along with you. Supervising Physician Co-Signing Physician Notes Patient seen and examined with Tyrone BONILLA. I agree with his exam findings, review of systems, assessment and plan. I reviewed chart, labs, imaging. patient doing well after TKA, pain controlled, vitals stable complex medical history - DM type II: basal dosing, Novolog SS, diabetic diet, monitor for hypoglycemia - CAD: no chest pain, continue home regimen History of Present Illness Attending Physician: Thomas Ling DO History of Present Illness Attending: Dr. Joe Guzman This is a 70-year-old male that appears his stated age. He presented for elective total knee arthroplasty with Dr. Ling and is currently postoperative day #1. The patient has a past medical history including coronary artery disease status post CABG x2 and placement of drug-eluting stents to multiple vessels, hypertension, hyperlipidemia, diabetes mellitus type 2 requiring chronic insulin, macular degeneration, chronic kidney disease stage III, BPH, anemia, osteoarthritis of left knee, history of rotator cuff tear of the right shoulder, remote history of tobacco abuse, remote history of ethanol use. The patient has no drug allergies. The patient failed conservative therapy as an outpatient and was scheduled for elective left knee replacement. He underwent elective repair yesterday. Estimated blood loss was 5 mL. Patient is ambulating in the m[place] up to 400 feet. He states that pain is generally controlled. He has no chest pain or tightness. He denies any nausea or vomiting or diarrhea. He has no acute complaints at this time. Allergies Allergy/AdvReac Type Severity Reaction Status Date / Time morphine Allergy Mild felt funny Verified 12/11/20 05:37 Home Medications Medication Instructions Recorded Confirmed Type Lantus U-100 Insulin 58 unit SUBCUT QAM 11/09/20 12/11/20 History Victoza 2-Clem 1.2 mg SUBCUT QAM 11/09/20 12/11/20 History bumetanide 0.25 mg PO QAM 11/09/20 12/11/20 History carvedilol 6.25 mg PO HS 11/09/20 12/11/20 History cholecalciferol (vitamin D3) 25 mcg PO QAM 11/09/20 12/11/20 History [Vitamin D3] clopidogrel [Plavix] 75 mg PO QAM 11/09/20 12/11/20 History ferrous sulfate 324 mg PO QAM 11/09/20 12/11/20 History gabapentin 300 mg PO TID 11/09/20 11/09/20 History rosuvastatin 40 mg PO HS 11/09/20 12/11/20 History spironolactone 25 mg PO QAM 11/09/20 12/11/20 History tamsulosin 0.4 mg PO QAM 11/09/20 11/09/20 History polyethylene glycol 3350 [Miralax] 1 g PO DAILY PRN 12/11/20 12/11/20 History acetaminophen 1,000 mg PO Q8 21 Days #126 tab 12/14/20 Rx aspirin 81 mg PO BID 30 Days #60 tab 12/14/20 Rx cefadroxil 500 mg PO BID 7 Days #14 cap 12/14/20 Rx docusate sodium 100 mg PO BID 10 Days #20 cap 12/14/20 Rx oxycodone 5 - 10 mg PO Q6H PRN 5 Days #30 tab 12/14/20 Rx oxycodone [OxyContin] 10 mg PO Q12 3 Days #6 tab 12/14/20 Rx Patient History Medical History Anemia BPH (benign prostatic hyperplasia) CAD (coronary artery disease) s/p multiple remote stents, CABG x5 (1995), CABG x3 (2018)- follows with [facility] (Dr. Richardson Valenzuela) Chronic back pain Chronic kidney disease, stage 3 Congestive heart failure Diabetes mellitus, type 2 IDDM Hyperlipidemia Hypertension Ischemic cardiomyopathy Macular degeneration receives injections in eyes Osteoarthritis Sleep apnea no device Spinal stenosis plan for spinal surgery (11/20/2020) at [facility] TIA (transient ischemic attack) 1996 Surgical History History of arthroscopy of right knee History of elbow surgery left tendon Hx of CABG CABG x5 (1995), CABG x3 (2018) Hx of repair of right rotator cuff S/P epidural steroid injection Family History (Updated 12/12/20 @ 12:24 by Tyrone Awad PA-C) Other Family history non-contributory Social History (Updated 12/12/20 @ 12:27 by Tyrone Awad PA-C) Smoking Status: Former smoker Second Hand Exposure: No; Hx Alcohol Use: Yes (Quit drinking 35 years ago) Hx Substance Use: No Preferred Language: Ecuadorean Communication Ability: Effective Manager Medicaid Required: No Beliefs That Will Affect Care: None marital status: Current Living Situation: Spouse Feels Safe at Home: Yes Assistive Devices: Glasses and Walker Review of Systems Review of Systems: All systems reviewed & are unremarkable except as noted in HPI & below Physical Exam Physical Exam: GENERAL : No acute distress. Pleasant. Talkative. EYES: No icterus, gaze conjugate. Pupils equal round and reactive to light NOSE: No evidence of epistaxis MOUTH: No lesions or candidiasis. Tongue midline. Mucosa moist NECK: Supple LUNGS: CTA B/L, no wheezes, rales or rhonchi HEART: Regular, rate controlled ABDOMEN: Soft, NT, ND, BS Present EXTREMITIES: No LE edema, pedal pulses intact and equal bilaterally. Dressing in place at left knee with drain. Patient has good extension of the leg. Pain generally controlled. NEURO: A&OX3 Results & Data Results & Data ([facility]) Vital Signs (Past 12 Hours) Vital Signs Temp Pulse Resp BP Pulse Ox 12/12/20 11:06 36.6 C 78 16 163/77 H 98 12/12/20 07:15 36.6 C 76 16 165/96 H 98 12/12/20 03:04 36.4 C L 75 20 160/83 H 94 Laboratory Results 12/12/20 06:02 12/12/20 06:02 Selected Entries 12/11/20 05:48 Pre Surgical COVID Test Results Negative Diagnostic Findings XR knee LT 1 or 2V routine CLINICAL HISTORY: Surgical Post Op COMPARISON: None. DISCUSSION: There are postsurgical changes of a total left knee arthroplasty and patellar resurfacing. The femoral tibial components appear well seated. There is an overlying surgical drain. There is gas present within the soft tissues consistent with recent surgery. Vascular silvia are present within the medial aspect of the leg. IMPRESSION: Postsurgical changes of a total left knee arthroplasty. Electronically signed by: Sabino Manuel M.D. 12/11/2020 9:42 AM PG Care Time/CCT Total # of Minutes Spent Total Time Spent with Patient: Total time spent is greater than 50% in coordination of care (as documented) at patient's floor/unit and/or counseling patient: 45 minutes Coding Level of Care Code 00014 Inpt Consult Level 4 Diagnoses S/P total knee arthroplasty Z96.652 Laterality: left Spinal stenosis M48.00 Spinal region: unspecified Diabetes mellitus, type 2 E11.9 CAD (coronary artery disease) I25.119 Associated angina: with unspecified angina Coronary Disease-Associated Artery/Lesion type: [place] artery [place] vs. transplanted heart: [place] heart Anemia D50.9 Anemia type: iron deficiency Iron deficiency anemia type: unspecified iron deficiency Macular degeneration H35.30 Eye laterality: bilateral Macular degeneration type: unspecified type Hypertension I10 Hypertension type: essential hypertension Hyperlipidemia E78.5 Hyperlipidemia type: unspecified Chronic kidney disease, stage 3 N18.32 Chronic kidney disease stage 3 subtype: stage 3b (GFR 30-44) BPH (benign prostatic hyperplasia) N40.0 Lower urinary tract symptom presence: symptoms absent DVT prophylaxis Z29.9 Time Spent (min) 45 (1) BPH (benign prostatic hyperplasia) Lower urinary tract symptom presence: symptoms absent Qualified Code(s): N40.0 - Benign prostatic hyperplasia without lower urinary tract symptoms (2) Chronic kidney disease, stage 3 Chronic kidney disease stage 3 subtype: stage 3b (GFR 30-44) Qualified Code(s): N18.32 - Chronic kidney disease, stage 3b (3) CAD (coronary artery disease) Associated angina: with unspecified angina Coronary Disease-Associated Artery/Lesion type: [place] artery [place] vs. transplanted heart: [place] heart Qualified Code(s): I25.119 - Atherosclerotic heart disease of [place] coronary artery with unspecified angina pectoris (4) Anemia Anemia type: iron deficiency Iron deficiency anemia type: unspecified iron deficiency Qualified Code(s): D50.9 - Iron deficiency anemia, unspecified (5) Hyperlipidemia Hyperlipidemia type: unspecified Qualified Code(s): E78.5 - Hyperlipidemia, unspecified (6) Spinal stenosis Spinal region: unspecified Qualified Code(s): M48.00 - Spinal stenosis, site unspecified (7) S/P total knee arthroplasty Laterality: left Qualified Code(s): Z96.652 - Presence of left artificial knee joint (8) Hypertension Hypertension type: essential hypertension Qualified Code(s): I10 - Essential (primary) hypertension (9) Macular degeneration Eye laterality: bilateral Macular degeneration type: unspecified type Qualified Code(s): H35.30 - Unspecified macular degeneration
[2020-12-12] MEDS: HYDROmorphone INJ 1 MG/ML SYRINGE IV PRN ×2 (14:08→18:59)
--- NOTE | 2020-12-12 14:11 | Pharmacy Report ---
Pharmacy Glycemic Short Note 2 - Date of Service December 12, 2020 - Glycemic Short BSG Results (Last 24 hours): 12/11/20 12/11/20 12/12/20 17:22 20:30 06:02 Glucose 197 H POC Glucose 171 H 221 H 12/12/20 12/12/20 08:16 11:58 Glucose POC Glucose 176 H 98 OUTPATIENT ANTIDIABETIC REGIMEN: * Lantus 65 units, victoza * A1c 7.2% ASSESSMENT: 12/12 * Patient received total of 51 units of insulin yesterday, of which 35 units were basal insulin * Fasting BSG trending up, 176 mg/dL - plan to increase to 45 units daily today * Tightened CF/CR with breakfast, however BSG trending down quickly at lunch - will loosen at lunch now with higher basal insulin on board 12/11 * 70 year old male now s/p L TKA, POD 0. Type 2 diabetic managed on insulin at home. Pharmacy consulted to assist with glycemic management postop * Will plan to utilize stress of 2 dosing of total outpt insulin dose to determine insulin dosing PLAN FOR INPATIENT GLYCEMIC CONTROL: * Hold outpatient oral diabetes medications * Basal insulin - increase * Lantus 45 units daily * Bolus insulin * NovoLog per scale ACHS or Q6hrs while NPO * Goal Range: Low 110 mg/dL - High 140 mg/dL * Correction Factor: 20 mg/dL/unit * Nutritional / Prandial insulin per carb ratio of 1 unit per 7 grams CHO consumed PLAN FOR DISCHARGE: * A1c of 7.2% - reasonable to continue home diabetic regimen on discharge as long as no contraindications exist. [facility] [place] for [facility].
[2020-12-12] MEDS: POLYETHYLENE (MIRALAX) 17 GM PACK PO PRN (17:31)
[2020-12-12] MEDS: carvediloL 6.25 MG TAB PO SCH (20:50)
[2020-12-12] MEDS: SENNA 8.6 MG TAB PO SCH (20:51)
[2020-12-12] MEDS: ROSUVASTATIN CALCIUM 20 MG TAB PO SCH (20:51)
[2020-12-13] MEDS: oxyCODONE HCL IR 5 MG TAB (IMMEDIATE RELEASE) PO PRN ×5 (04:07→21:14)
[2020-12-13] MEDS: ACETAMINOPHEN 500 MG TAB PO SCH ×3 (05:27→21:14)
[2020-12-13] MEDS: HYDROmorphone INJ 1 MG/ML SYRINGE IV PRN ×5 (05:31→20:32)
[2020-12-13 06:10] LABS: Hematocrit (blood only) 25.7 % (42-52); Hemoglobin 8.9 g/dL (14.0-18.0); Mean Corpuscular Hemoglobin 30.3 pg (25-34); Mean Corpuscular Hgb Conc 34.6 g/dL (32-36); Mean Corpuscular Volume 87.4 fL (80-100); Mean Platelet Volume 9.4 fL (7.4-10.4); Platelet Count 206 K/uL (130-400); RDW Coefficient of Variation 13.2 % (11.5-14.5); RDW Standard Deviation 42.5 fL (36.4-46.3); Red Blood Count 2.94 M/uL (4.7-6.1); White Blood Count 9.91 K/uL (4.8-10.8)
[2020-12-13 06:34] LABS: Calcium 7.9 mg/dl (8.5-10.1); Creatinine Clr Calc Pharmacy 49.2 ml/min; Est GFR (African American) 55.2; Est GFR (Non-African American) 47.6; Potassium 5.3 mmol/L (3.5-5.1)
--- NOTE | 2020-12-13 07:14 | Orthopedic Progress Note ---
Date of Service December 13, 2020 Assessment & Plan (1) History of total left knee replacement: POD #2 s/p Left TKA pt/ot dvt proph with RADHA/SCD/resume his Plavix and ASA plan for d/c home with home health PT having difficult time controlling his pain, will add Oxycontin q12 hours and recheck after PT medical management as per hospitalist- Admission and Anticipated Discharge Date Admission Date: December 11, 2020 Subjective POD #2 s/p Left TKA Review of Systems Constitutional: no fever, no chills and no sweats Respiratory: no cough and no dyspnea Cardiovascular: no chest pain and no dyspnea Gastrointestinal: no abdominal pain, no nausea and no vomiting Physical Exam Physical Exam: Vital Signs Temp 37.0 C 12/12/20 23:13 Pulse 68 12/12/20 23:13 Resp 16 12/12/20 23:13 BP 144/69 H 12/12/20 23:13 Pulse Ox 96 12/12/20 23:13 Intake & Output 12/12/20 12/13/20 12/13/20 18:59 06:59 18:59 Output Total 200 / 275 75 / 275 Balance -200 / -275 -75 / -275 Output: Drain Output 200 / 275 75 / 275 Left Knee Hemo vac 200 / 275 75 / 275 Other: # Unmeasured Voi ds 1 Constitutional: WD/WN, vitals as above no acute distress Musculoskeletal: left lower extremity: NVDI, calf SNT, negative vanessa sign. DP palpable, able to wiggle toes/ankle movement without difficulty. Incision clean dry and intact. expected post-operative bruising noted. Results & Data ([facility]) Vital Signs (Past 12 Hours) Vital Signs Temp Pulse Resp BP Pulse Ox 12/12/20 23:13 37.0 C 68 16 144/69 H 96 12/12/20 21:05 36.9 C 16 96 12/12/20 20:47 77 157/73 H Laboratory Results Laboratory Results WBC 9.91 K/uL (4.8-10.8) 12/13/20 05:46 RBC 2.94 M/uL (4.7-6.1) L 12/13/20 05:46 Hgb 8.9 g/dL (14.0-18.0) L 12/13/20 05:46 Hct 25.7 % (42-52) L 12/13/20 05:46 MCV 87.4 fL (80-100) 12/13/20 05:46 MCH 30.3 pg (25-34) 12/13/20 05:46 MCHC 34.6 g/dL (32-36) 12/13/20 05:46 RDW Std Deviation 42.5 fL (36.4-46.3) 12/13/20 05:46 RDW Coeff of Akila 13.2 % (11.5-14.5) 12/13/20 05:46 Plt Count 206 K/uL (130-400) 12/13/20 05:46 MPV 9.4 fL (7.4-10.4) 12/13/20 05:46 Immature Gran % (Auto) 0.2 % 11/16/20 12:20 Neut % (Auto) 67.4 % 11/16/20 12:20 Lymph % (Auto) 17.0 % 11/16/20 12:20 [place] % (Auto) 10.7 % 11/16/20 12:20 Eos % (Auto) 4.1 % 11/16/20 12:20 Baso % (Auto) 0.6 % 11/16/20 12:20 Neut # (Auto) 4.28 K/uL (1.4-6.5) 11/16/20 12:20 Lymph # (Auto) 1.08 K/uL (1.2-3.4) L 11/16/20 12:20 [place] # (Auto) 0.68 K/uL (0.11-0.59) H 11/16/20 12:20 Eos # (Auto) 0.26 K/uL (0-0.5) 11/16/20 12:20 Baso # (Auto) 0.04 K/uL (0-0.2) 11/16/20 12:20 Immature Gran # (Auto) 0.01 K/uL (0.00-0.02) 11/16/20 12:20 PT 10.8 Seconds (9.0-12.0) 11/16/20 12:20 INR 1.1 (0.9-1.1) 11/16/20 12:20 APTT 26.9 Seconds (21.0-31.0) 11/16/20 12:20 PTT Ratio 1.0 11/16/20 12:20 Sodium 137 mmol/L (136-145) 12/13/20 05:46 Potassium 5.3 mmol/L (3.5-5.1) H 12/13/20 05:46 Chloride 108 mmol/L (98-107) H 12/13/20 05:46 Carbon Dioxide 27 mmol/L (21-32) 12/13/20 05:46 Anion Gap 2.0 (3-11) L 12/13/20 05:46 BUN 36 mg/dl (7-18) H 12/13/20 05:46 Creatinine 1.48 mg/dl (0.6-1.4) H D 12/13/20 05:46 Est Cr Clr Drug Dosing 49.2 ml/min 12/13/20 05:46 Est GFR ( Amer) 55.2 12/13/20 05:46 Est GFR (Non-Af Amer) 47.6 12/13/20 05:46 BUN/Creatinine Ratio 24.0 (10-20) H 12/13/20 05:46 Glucose 119 mg/dl (70-99) H 12/13/20 05:46 POC Glucose 124 mg/dl (70-99) H 12/12/20 20:47 Estimat Average Glucose 160 mg/dl 11/16/20 12:20 Hemoglobin A1c 7.2 % (4.5-5.6) H 11/16/20 12:20 Calcium 7.9 mg/dl (8.5-10.1) L 12/13/20 05:46 Albumin 3.5 gm/dl (3.4-5.0) 11/16/20 12:20 Urine Color Yellow 11/16/20 12:20 Urine Appearance Cloudy (Clear) A 11/16/20 12:20 Urine pH 5.0 (4.5-7.5) 11/16/20 12:20 Ur Specific [place] 1.018 (1.000-1.030) 11/16/20 12:20 Urine Protein 1+ (Negative) H 11/16/20 12:20 Urine Glucose (UA) Negative (Negative) 11/16/20 12:20 Urine Ketones Negative (Negative) 11/16/20 12:20 Urine Blood Negative (Negative) 11/16/20 12:20 Urine Nitrite Negative (Negative) 11/16/20 12:20 Urine Bilirubin Negative (Negative) 11/16/20 12:20 Urine Urobilinogen Negative (Negative) 11/16/20 12:20 Ur Leukocyte Esterase Negative (Negative) 11/16/20 12:20 Urine WBC (Auto) 1-5 /hpf (0-5) 11/16/20 12:20 Urine RBC (Auto) 0-4 /hpf (0-4) 11/16/20 12:20 U Hyaline Cast (Auto) 5-10 /lpf (0-5) H 11/16/20 12:20 U Epithel Cells (Auto) 10-20 /lpf (0-5) H 11/16/20 12:20 Urine Bacteria (Auto) Negative (Negative) 11/16/20 12:20 Blood Type O Positive 11/16/20 12:20 Antibody Screen NEGATIVE 11/16/20 12:20
[2020-12-13] MEDS: oxyCODONE HCL 10 MG TABCR (OxyCONTIN) PO SCH ×2 (07:29→20:37)
[2020-12-13] MEDS: TAMSULOSIN HCL 0.4 MG CAP PO SCH (08:00)
[2020-12-13] MEDS: FERROUS SULFATE 325 MG TAB PO SCH (08:00)
[2020-12-13] MEDS: DOCUSATE SODIUM 100 MG CAP PO SCH ×2 (08:00→20:38)
[2020-12-13] MEDS: ASPIRIN 81 MG ECTAB PO SCH ×2 (08:00→20:38)
[2020-12-13] MEDS: GABAPENTIN 300 MG CAP PO SCH ×3 (08:00→20:37)
[2020-12-13] MEDS: MULTIVITAMIN TAB PO SCH (08:01)
[2020-12-13] MEDS: CHOLECALCIFEROL 1,000 UNITS 25 MCG TAB PO SCH (08:01)
[2020-12-13] MEDS: BUMETANIDE 1 MG TAB PO SCH (08:01)
[2020-12-13] MEDS: CLOPIDOGREL BISULFATE 75 MG TAB PO SCH (08:01)
[2020-12-13] MEDS: INSULIN ASPART 100 UNITS/ML 3 ML PEN SC SCH ×4 (09:01→20:38)
[2020-12-13] MEDS: INSULIN GLARGINE SOLOSTAR 100 UNITS/ML 3 ML PEN SC SCH (09:03)
--- NOTE | 2020-12-13 11:22 | Pharmacy Report ---
Pharmacy Glycemic Short Note 2 - Date of Service December 13, 2020 - Glycemic Short BSG Results (Last 24 hours): 12/12/20 12/12/20 12/12/20 11:58 17:10 20:47 Glucose POC Glucose 98 123 H 124 H 12/13/20 12/13/20 05:46 08:32 Glucose 119 H POC Glucose 115 H OUTPATIENT ANTIDIABETIC REGIMEN: * Lantus 65 units, victoza * A1c 7.2% ASSESSMENT: 12/13 * Pt has received 69 units of insulin over the past 24hrs * 45 units of basal with Lantus * 24 units of bolus with NovoLog * BSGs [id number] mg/dl * BSGs well controlled with current regimen; however, concern regarding the drop in AM fasting BSG from yesterday to today 176 --> 115 mg/dl. If basal is not decreased today could result in hypo tomorrow AM. Will empirically decrease basal insulin dosing. * post-prandial BSGs in goal range. No changes needed to CF/CR 12/12 * Patient received total of 51 units of insulin yesterday, of which 35 units were basal insulin * Fasting BSG trending up, 176 mg/dL - plan to increase to 45 units daily today * Tightened CF/CR with breakfast, however BSG trending down quickly at lunch - will loosen at lunch now with higher basal insulin on board 12/11 * 70 year old male now s/p L TKA, POD 0. Type 2 diabetic managed on insulin at home. Pharmacy consulted to assist with glycemic management postop * Will plan to utilize stress of 2 dosing of total outpt insulin dose to determine insulin dosing PLAN FOR INPATIENT GLYCEMIC CONTROL: * Hold outpatient oral diabetes medications * Basal insulin - decrease * Lantus 40 units daily * Bolus insulin - no change * NovoLog per scale ACHS or Q6hrs while NPO * Goal Range: Low 110 mg/dL - High 140 mg/dL * Correction Factor: 20 mg/dL/unit * Nutritional / Prandial insulin per carb ratio of 1 unit per 7 grams CHO consumed PLAN FOR DISCHARGE: * A1c of 7.2% - reasonable to continue home diabetic regimen on discharge as long as no contraindications exist. [facility] [place] [facility].
[2020-12-13] MEDS: POLYETHYLENE (MIRALAX) 17 GM PACK PO PRN (17:12)
--- NOTE | 2020-12-13 18:38 | Hospitalist Progress Note ---
Date of Service December 13, 2020 Assessment & Plan (1) S/P total knee arthroplasty: POD #[address] Ling Estimated blood loss 5 mL Hemovac drain removed this morning Pain poorly controlled this morning Further management per orthopedics (2) Spinal stenosis: Patient chronically takes tramadol for pain relief [facility] reviewed MME 20 All tramadol ordered through [facility] No benzodiazepines or other opiates or narcotics reported (3) Diabetes mellitus, type 2: Managed outpatient and well controlled Continue usual home medications Hemoglobin A1c is 7.2% Positive for neuropathy -continue gabapentin 3 times daily Will modify NovoLog sliding scale insulin * NovoLog sliding scale with basal insulin Lantus twice daily * Home dose of Lantus is 57 units daily * Continue with diabetic diet * Discharge on home regimen of insulin (4) CAD (coronary artery disease): No chest pain or tightness Patient with history of CABG. * 5 vessel CABG in 1995 * 3 vessel CABG in 2019 * Multiple PCI with stent placement Continue aspirin, carvedilol, rosuvastatin, and Bumex. Anticipate resuming clopidogrel tomorrow if okay with orthopedics (5) Anemia: Hemoglobin 9.0 g/Lois EBL reported is 5 mL but patient is dropped 1.9 g/Lois since surgery Hemodynamically stable Minimal output from Hemovac drain Repeat HgB this morning was 8.9 Continue to monitor Continue ferrous sulfate (6) Macular degeneration: No outpatient treatment Patient denies any acute vision changes Recommend following up with outpatient stranner (7) Hypertension: Continue carvedilol and Bumex Hemodynamically stable (8) Hyperlipidemia: Continue rosuvastatin (9) Chronic kidney disease, stage 3: Creatinine 2.07 yesterday. Now improved to 1.48 Continue to encourage oral intake (10) BPH (benign prostatic hyperplasia): Continue tamsulosin (11) DVT prophylaxis: Anticipate resuming aspirin and clopidogrel tomorrow Ambulate per orthopedics Thank you very much for including us in the care of this patient. We will sign off at this time. Feel free to reconsult if needed Admission and Anticipated Discharge Date Admission Date: December 13, 2020 Subjective Attending: Dr. Guzman POD #2 s/p Left TKA. Pain is worse today. Orthopedics aware and managing. No carri st pain or tightness. No fever or chills. No other acute complaints other than pain to left knee Review of Systems Review of Systems: All systems reviewed & are unremarkable except as noted in Subjective Physical Exam Physical Exam: GENERAL : No acute distress. Pleasant. Talkative. EYES: No icterus, gaze conjugate. Pupils equal round and reactive to light NOSE: No evidence of epistaxis MOUTH: No lesions or candidiasis. Tongue midline. Mucosa moist NECK: Supple LUNGS: CTA B/L, no wheezes, rales or rhonchi HEART: Regular, rate controlled ABDOMEN: Soft, NT, ND, BS Present EXTREMITIES: No LE edema, pedal pulses intact and equal bilaterally. Dressing in place at left knee. Hemovac removed. Patient has good extension of the leg. Pain generally controlled. NEURO: A&OX3 Results & Data Results & Data ([facility]) Vital Signs (Past 12 Hours) Vital Signs Temp Pulse Resp BP Pulse Ox 12/13/20 15:09 36.8 C 84 16 103/61 91 12/13/20 07:35 36.6 C 80 16 143/75 H 97 Laboratory Results INR 1.1 (0.9-1.1) 11/16/20 12:20 12/13/20 05:46 12/13/20 05:46 Diagnostic Findings No further diagnostic imaging PG Care Time/CCT Total # of Minutes Spent Total Time Spent with Patient: Total time spent is greater than 50% in coordination of care (as documented) at patient's floor/unit and/or counseling patient: Coding Level of Care Code 67187 Subseq Hosp Care Lvl 2 Diagnoses S/P total knee arthroplasty Z96.652 Laterality: left Spinal stenosis M48.00 Spinal region: unspecified Diabetes mellitus, type 2 E11.9 CAD (coronary artery disease) I25.119 Associated angina: with unspecified angina Coronary Disease-Associated Artery/Lesion type: [place] artery [place] vs. transplanted heart: [place] heart Anemia D50.9 Anemia type: iron deficiency Iron deficiency anemia type: unspecified iron deficiency Macular degeneration H35.30 Eye laterality: bilateral Macular degeneration type: unspecified type Hypertension I10 Hypertension type: essential hypertension Hyperlipidemia E78.5 Hyperlipidemia type: unspecified Chronic kidney disease, stage 3 N18.32 Chronic kidney disease stage 3 subtype: stage 3b (GFR 30-44) BPH (benign prostatic hyperplasia) N40.0 Lower urinary tract symptom presence: symptoms absent DVT prophylaxis Z29.9 (1) BPH (benign prostatic hyperplasia) Lower urinary tract symptom presence: symptoms absent Qualified Code(s): N40.0 - Benign prostatic hyperplasia without lower urinary tract symptoms (2) Chronic kidney disease, stage 3 Chronic kidney disease stage 3 subtype: stage 3b (GFR 30-44) Qualified Code(s): N18.32 - Chronic kidney disease, stage 3b (3) CAD (coronary artery disease) Associated angina: with unspecified angina Coronary Disease-Associated Artery/Lesion type: [place] artery [place] vs. transplanted heart: [place] heart Qualified Code(s): I25.119 - Atherosclerotic heart disease of [place] coronary artery with unspecified angina pectoris (4) Anemia Anemia type: iron deficiency Iron deficiency anemia type: unspecified iron deficiency Qualified Code(s): D50.9 - Iron deficiency anemia, unspecified (5) Hyperlipidemia Hyperlipidemia type: unspecified Qualified Code(s): E78.5 - Hyperlipidemia, unspecified (6) Spinal stenosis Spinal region: unspecified Qualified Code(s): M48.00 - Spinal stenosis, site unspecified (7) S/P total knee arthroplasty Laterality: left Qualified Code(s): Z96.652 - Presence of left artificial knee joint (8) Hypertension Hypertension type: essential hypertension Qualified Code(s): I10 - Essential (primary) hypertension (9) Macular degeneration Eye laterality: bilateral Macular degeneration type: unspecified type Quali fied Code(s): H35.30 - Unspecified macular degeneration
[2020-12-13] MEDS: SENNA 8.6 MG TAB PO SCH (20:37)
[2020-12-13] MEDS: ROSUVASTATIN CALCIUM 20 MG TAB PO SCH (20:38)
[2020-12-13] MEDS: carvediloL 6.25 MG TAB PO SCH (20:40)
[2020-12-14] MEDS: ACETAMINOPHEN 500 MG TAB PO SCH (05:59)
[2020-12-14] MEDS: oxyCODONE HCL IR 5 MG TAB (IMMEDIATE RELEASE) PO PRN ×2 (05:59→10:22)
[2020-12-14 06:29] LABS: Basophils # (auto) 0.03 K/uL (0-0.2); Basophils % (auto) 0.3 %; Eosinophils % (auto) 3.2 %; Hematocrit (blood only) 25.7 % (42-52); Hemoglobin 8.8 g/dL (14.0-18.0); Immature Granulocytes # (auto) 0.02 K/uL (0.00-0.02); Immature Granulocytes % (auto) 0.2 %; Lymphocytes # (auto) 1.33 K/uL (1.2-3.4); Lymphocytes % (auto) 14.3 %; Mean Corpuscular Hemoglobin 30.2 pg (25-34); Mean Corpuscular Hgb Conc 34.2 g/dL (32-36); Mean Corpuscular Volume 88.3 fL (80-100); Mean Platelet Volume 9.4 fL (7.4-10.4); Monocytes # (auto) 1.45 K/uL (0.11-0.59); Monocytes % (auto) 15.6 %; Neutrophils # (auto) 6.18 K/uL (1.4-6.5); Neutrophils % (auto) 66.4 %; Platelet Count 212 K/uL (130-400); RDW Coefficient of Variation 13.4 % (11.5-14.5); RDW Standard Deviation 43.8 fL (36.4-46.3); Red Blood Count 2.91 M/uL (4.7-6.1); White Blood Count 9.31 K/uL (4.8-10.8)
--- NOTE | 2020-12-14 07:02 | Orthopedic Progress Note ---
Date of Service December 14, 2020 Assessment & Plan (1) History of total left knee replacement: POD #3 s/p Left TKA pt/ot dvt proph with RADHA/SCD/resume his Plavix and ASA plan for d/c home with home health PT pain improved today, will send home with short Rx for Oxycontin q 12 medical management as per hospitalist- Admission and Anticipated Discharge Date Admission Date: December 13, 2020 Subjective Attending: Dr. Guzman POD #3 s/p Left TKA. pain improved this am, feeling better today Review of Systems Review of Systems: All systems reviewed & are unremarkable except as noted in HPI & below Constitutional: no fever and no chills Respiratory: no cough and no dyspnea Cardiovascular: no chest pain, no dyspnea and no orthopnea Gastrointestinal: no abdominal pain, no nausea and no vomiting Physical Exam Physical Exam: Vital Signs Temp 36.6 C 12/14/20 06:08 Pulse 78 12/14/20 06:08 Resp 16 12/14/20 06:08 BP 145/72 H 12/14/20 06:08 Pulse Ox 98 12/14/20 06:08 Intake & Output 12/13/20 12/14/20 12/14/20 18:59 06:59 18:59 Intake Total 650 / 650 Balance 650 / 650 Intake: Oral 650 / 650 Other: # Unmeasured Voi ds 1 Constitutional: WD/WN, vitals as above no acute distress Musculoskeletal: Left leg: NVDI, calf SNT, negative vanessa sign. DP palpable, able to wiggle toes/ankle movement without difficulty. dressing clean dry and intact. expected post-operative bruising noted. Results & Data ([facility]) Vital Signs (Past 12 Hours) Vital Signs Temp Pulse Resp BP Pulse Ox 12/14/20 06:08 36.6 C 78 16 145/72 H 98 12/13/20 23:19 37.5 C 85 18 156/72 H 92 12/13/20 20:36 87 145/82 H
[2020-12-14] MEDS: DOCUSATE SODIUM 100 MG CAP PO SCH (07:20)
[2020-12-14] MEDS: TAMSULOSIN HCL 0.4 MG CAP PO SCH (07:20)
[2020-12-14] MEDS: FERROUS SULFATE 325 MG TAB PO SCH (07:20)
[2020-12-14] MEDS: CHOLECALCIFEROL 1,000 UNITS 25 MCG TAB PO SCH (07:21)
[2020-12-14] MEDS: BUMETANIDE 1 MG TAB PO SCH (07:21)
[2020-12-14] MEDS: CLOPIDOGREL BISULFATE 75 MG TAB PO SCH (07:22)
[2020-12-14] MEDS: MULTIVITAMIN TAB PO SCH (07:23)
[2020-12-14] MEDS: ASPIRIN 81 MG ECTAB PO SCH (07:23)
[2020-12-14] MEDS: GABAPENTIN 300 MG CAP PO SCH (07:23)
[2020-12-14] MEDS: POLYETHYLENE (MIRALAX) 17 GM PACK PO PRN (07:31)
[2020-12-14] MEDS: INSULIN GLARGINE SOLOSTAR 100 UNITS/ML 3 ML PEN SC SCH ×2 (08:09→08:18)
[2020-12-14] MEDS: INSULIN ASPART 100 UNITS/ML 3 ML PEN SC SCH (08:10)
[2020-12-14] MEDS: oxyCODONE HCL 10 MG TABCR (OxyCONTIN) PO SCH (08:16)
--- NOTE | 2020-12-14 08:20 | Discharge Summary ---
Date of Service Date of discharge: December 14, 2020 date of admission: 12-11-20 Admission HPI Per Admitting Provider betina is a 70 year old male who complains of left knee pain, presents for pre- op evaluation prior to a left total knee replacement by dr Ling at [facility]. he complains of pain and stiffness in the knee. Currently the patient states that the symptoms are moderate-severe. The pain is described as aching, sharp and throbbing. The symptoms are aggravated by ascending stairs, daily activities, first steps while awake walking. Prior NSAIDs include IBU and Aleve. He has been treated with previous cortisone injections in the past without much relief and uses crutches to assist with ambulation. Principal Diagnosis left knee arthritis Discharge Exam Vital Signs Temp 36.6 C 12/14/20 08:01 Pulse 78 12/14/20 08:01 Resp 16 12/14/20 08:01 BP 145/72 H 12/14/20 08:01 Pulse Ox 98 12/14/20 08:01 Intake & Output 12/13/20 12/14/20 12/14/20 18:59 06:59 18:59 Intake Total 650 / 650 Balance 650 / 650 Weight 85.6 kg Intake: Oral 650 / 650 Other: # Unmeasured Voids 1 Constitutional WD/WN, vitals as above no acute distress Musculoskeletal left knee: NVDI, calf SNT, negative vanessa sign. DP palpable, able to wiggle toes/ankle movement without difficulty. Prineo dressing clean dry and intact. expected post-operative bruising noted. Discharge Data Allergies Allergy/AdvReac Type Severity Reaction Status Date / Time morphine Allergy Mild felt funny Verified 12/11/20 05:37 Consultations 12/11/20 10:26 Consult Case Management - Discharge Planning Routine 12/12/20 09:18 Consult Hospitalist Routine Procedures Performed Operation Date: 12/11/20 07:15 Actual Procedures p Left Total Knee Arthroplasty(Left) - Thomas Ling DO Ordered Studies 12/11/20 05:00 US - OR guided needle placemen Routine Hospital Course (1) History of total left knee replacement: POD #3 s/p Left TKA pt/ot dvt proph with RADHA/SCD/resume his Plavix and ASA plan for d/c home with home health PT pain improved today, will send home with short Rx for Oxycontin q 12 medical management as per hospitalist- Laboratory Results WBC 9.31 K/uL (4.8-10.8) 12/14/20 05:52 RBC 2.91 M/uL (4.7-6.1) L 12/14/20 05:52 Hgb 8.8 g/dL (14.0-18.0) L 12/14/20 05:52 Hct 25.7 % (42-52) L 12/14/20 05:52 MCV 88.3 fL (80-100) 12/14/20 05:52 MCH 30.2 pg (25-34) 12/14/20 05:52 MCHC 34.2 g/dL (32-36) 12/14/20 05:52 RDW Std Deviation 43.8 fL (36.4-46.3) 12/14/20 05:52 RDW Coeff of Akila 13.4 % (11.5-14.5) 12/14/20 05:52 Plt Count 212 K/uL (130-400) 12/14/20 05:52 MPV 9.4 fL (7.4-10.4) 12/14/20 05:52 Immature Gran % (Auto) 0.2 % 12/14/20 05:52 Neut % (Auto) 66.4 % 12/14/20 05:52 Lymph % (Auto) 14.3 % 12/14/20 05:52 Sac % (Auto) 15.6 % 12/14/20 05:52 Eos % (Auto) 3.2 % 12/14/20 05:52 Baso % (Auto) 0.3 % 12/14/20 05:52 Neut # (Auto) 6.18 K/uL (1.4-6.5) 12/14/20 05:52 Lymph # (Auto) 1.33 K/uL (1.2-3.4) 12/14/20 05:52 Sac # (Auto) 1.45 K/uL (0.11-0.59) H 12/14/20 05:52 Eos # (Auto) 0.30 K/uL (0-0.5) 12/14/20 05:52 Baso # (Auto) 0.03 K/uL (0-0.2) 12/14/20 05:52 Immature Gran # (Auto) 0.02 K/uL (0.00-0.02) 12/14/20 05:52 PT 10.8 Seconds (9.0-12.0) 11/16/20 12:20 INR 1.1 (0.9-1.1) 11/16/20 12:20 APTT 26.9 Seconds (21.0-31.0) 11/16/20 12:20 PTT Ratio 1.0 11/16/20 12:20 Sodium 137 mmol/L (136-145) 12/13/20 05:46 Potassium 5.3 mmol/L (3.5-5.1) H 12/13/20 05:46 Chloride 108 mmol/L (98-107) H 12/13/20 05:46 Carbon Dioxide 27 mmol/L (21-32) 12/13/20 05:46 Anion Gap 2.0 (3-11) L 12/13/20 05:46 BUN 36 mg/dl (7-18) H 12/13/20 05:46 Creatinine 1.48 mg/dl (0.6-1.4) H D 12/13/20 05:46 Est Cr Clr Drug Dosing 49.2 ml/min 12/13/20 05:46 Est GFR ( Amer) 55.2 12/13/20 05:46 Est GFR (Non-Af Amer) 47.6 12/13/20 05:46 BUN/Creatinine Ratio 24.0 (10-20) H 12/13/20 05:46 Glucose 119 mg/dl (70-99) H 12/13/20 05:46 POC Glucose 103 mg/dl (70-99) H 12/14/20 06:36 Estimat Average Glucose 160 mg/dl 11/16/20 12:20 Hemoglobin A1c 7.2 % (4.5-5.6) H 11/16/20 12:20 Calcium 7.9 mg/dl (8.5-10.1) L 12/13/20 05:46 Albumin 3.5 gm/dl (3.4-5.0) 11/16/20 12:20 Urine Color Yellow 11/16/20 12:20 Urine Appearance Cloudy (Clear) A 11/16/20 12:20 Urine pH 5.0 (4.5-7.5) 11/16/20 12:20 Ur Specific [place] 1.018 (1.000-1.030) 11/16/20 12:20 Urine Protein 1+ (Negative) H 11/16/20 12:20 Urine Glucose (UA) Negative (Negative) 11/16/20 12:20 Urine Ketones Negative (Negative) 11/16/20 12:20 Urine Blood Negative (Negative) 11/16/20 12:20 Urine Nitrite Negative (Negative) 11/16/20 12:20 Urine Bilirubin Negative (Negative) 11/16/20 12:20 Urine Urobilinogen Negative (Negative) 11/16/20 12:20 Ur Leukocyte Esterase Negative (Negative) 11/16/20 12:20 Urine WBC (Auto) 1-5 /hpf (0-5) 11/16/20 12:20 Urine RBC (Auto) 0-4 /hpf (0-4) 11/16/20 12:20 U Hyaline Cast (Auto) 5-10 /lpf (0-5) H 11/16/20 12:20 U Epithel Cells (Auto) 10-20 /lpf (0-5) H 11/16/20 12:20 Urine Bacteria (Auto) Negative (Negative) 11/16/20 12:20 Blood Type O Positive 11/16/20 12:20 Antibody Screen NEGATIVE 11/16/20 12:20 Total Time Total Time Spent Total Time Spent (In Minutes): 20 Total Time Includes: Examination of the Patient, Discharge Planning and Medication Reconciliation Discharge Plan Discharge Items Patient Disposition: Home - Home Health Services Reason For Visit: Osteoarthritis, Left Knee Discharge Diagnosis: left total knee replacement Condition on Discharge: Good Activity: Per Instructions section Lifting: Wait until after follow-up appointment Weightbearing Comment: WBAT with walker Non-emergency contact: Surgeon Call non-emergency contact if: you have any medication questions, your temperature is above 101, your wound has increased redness, your wound has increased drainage and your wound pain has increased Follow-up/Referrals: Marah Carroll MD [Primary Care Provider] - Diet: Carb Consistent or DM2 Addtl Attending Provider Instructions: ACTIVITY RECOMMENDATIONS: SELF CARE INSTRUCTIONS AFTER TOTAL KNEE REPLACEMENT A. You may need to continue a physical therapy program after discharge from the hospital. There are several options available to you. Your doctor will assist you in selecting the best one for you. 1. An out-patient facility 2 to 3 times a week for therapy or home therapy. 2. Continue working on all exercises taught to you in the hospital. Your goals should be to increase bending of your knee to 90 degrees and beyond and to fully straighten your knee. B. You may progress at your own pace from walking with a walker or crutches to a cane; then to no assistive devices. C. Make walking a part of your daily routine. Be up as much as comfortable with rest periods throughout the day. Rest with leg elevation is very important. Use the ice wrap frequently for the first 3-4 weeks. D. There are no restrictions on activities. You may ride in a car, shop, participate in drama teacher and all social activities. E. Wear the long elastic stockings (RADHA hose) 20 hours a day for 2 weeks after surgery. They can be removed several times a day for laundering and for a bath. F. You may shower, no tub baths until cleared by your doctor. SPECIAL CARE INSTRUCTIONS: VERY IMPORTANT TO READ AND REVIEW A. There are a few signs you need to watch for after you are home. Call [facility] if you notice any of the followin. Increased severe knee pain. Some pain is expected especially when you exercise. 2. Increased swelling in your leg or knee; pain or swelling of the calf muscle in either lower leg. 3. Any fluid drainage from the incision. 4. Shortness of breath or chest pain. B. Please call [facility] at if you have any concerns or questions about your operation or recovery. The doctor or his nurse will return your call promptly. C. You must take antibiotics before dental work, bladder, bowel or other surgery. Your doctor will provide you with a permanent care to carry describing this precaution. IMPORTANT: * REMEMBER TO TAKE ASPIRIN, 81 MG, TWICE DAILY FOR 4 WEEKS UNLESS OTHERWISE DIRECTED. THIS IS YOUR BLOOD THINNER. * HIGH RISK PATIENTS MAY BE PRESCRIBED A STRONGER BLOOD THINNER. THIS WILL BE PROVIDED AT DISCHARGE. * CALL IF INCREASED PAIN, REDNESS, DRAINAGE OR FEVER GREATER THAT 101. * WEAR RADHA HOSE 20 HOURS PER DAY FOR 2 WEEKS. * DERMABOND Prineo- This is a mesh tape dressing that is covered with glue. It should remain in place until the incision is properly healed, usually 10-14 days. This dressing is designed to naturally slough off. You may trim the excess mesh tape as it peels off. Incision may be briefly wet in a shower. Dry immediately by blotting with a clean, dry towel. Do not bath or swim until instructed by your doctor. Do not scratch, rub, or pick at the dressing. Do not apply any topical ointments or lotions until dressing is completely removed and/or instructed by your doctor. There may be a small piece of suture material at one end of your incision. Do not pull or trim this. If it is bothersome or catching on clothing, you may cover it with a band-aid. IF INCISION IS LEAKING THROUGH DRESSING, CALL THE OFFICE . FOLLOW UP VISIT: If appointment is not already scheduled: Please call [facility] [place] to make a follow-up appointment for 2 weeks after your surgery at . Pending Studies at Discharge: No Stand-Alone Forms: My [facility] [employer], Smoking Cessation Medications and DC Order Prescriptions: New aspirin 81 mg Tablet,Delayed Release (Dr/Ec) 81 mg PO BID 30 Days Qty: 60 RF: 0 acetaminophen 500 mg Tablet 1,000 mg PO Q8 21 Days Qty: 126 RF: 0 oxycodone [OxyContin] 10 mg Tablet,Oral Only,Ext.Rel.12 Hr 10 mg PO Q12 3 Days Qty: 6 RF: 0 oxycodone 5 mg Tablet 5 - 10 mg PO Q6H PRN (Reason: pain) 5 Days Qty: 30 RF: 0 docusate sodium 100 mg Capsule 100 mg PO BID 10 Days Qty: 20 RF: 0 cefadroxil 500 mg capsule 500 mg PO BID 7 Days Qty: 14 RF: 0 Continued carvedilol 6.25 mg Tablet 6.25 mg PO HS RF: 0 Lantus U-100 Insulin 100 unit/mL Solution 58 unit SUBCUT QAM RF: 0 bumetanide [Bumex] 2 mg Tablet 0.25 mg PO QAM RF: 0 clopidogrel [Plavix] 75 mg Tablet 75 mg PO QAM RF: 0 spironolactone 25 mg Tablet 25 mg PO QAM RF: 0 tamsulosin 0.4 mg Capsule 0.4 mg PO QAM RF: 0 cholecalciferol (vitamin D3) [Vitamin D3] 25 mcg (1,000 unit) Capsule 25 mcg PO QAM RF: 0 rosuvastatin 40 mg Tablet 40 mg PO HS RF: 0 gabapentin 300 mg Tablet 300 mg PO TID RF: 0 ferrous sulfate 324 mg (65 mg iron) Tablet,Delayed Release (Dr/Ec) 324 mg PO QAM RF: 0 Victoza 2-Clem 0.6 mg/0.1 mL (18 mg/3 mL) Pen Injector 1.2 mg SUBCUT QAM RF: 0 polyethylene glycol 3350 [Miralax] 17 gram/dose Powder 1 g PO DAILY PRN (Reason: Constipation) RF: 0 Discontinued tramadol 50 mg Tablet 50 mg PO Q8H PRN (Reason: Pain) RF: 0 aspirin 81 mg Tablet 81 mg PO QAM RF: 0 acetaminophen [Tylenol] 325 mg Capsule 325 mg PO QID PRN (Reason: Pain) RF: 0 Discharge Orders: Discharge Order (Routine); Ordered 12/14/20 Ordered By: Christoph Reyes/Other Patient Handouts: Managing Type 2 Diabetes, Managing Diabetes: The A1C Test Admission Data Admit Date/Time: 12/13/20 13:08 Attending Provider: Thomas Ling Admit Provider: Thomas Ling Primary Care Provider: Marah Carroll V. Other Providers: Santhosh Hedrick ; Kari Robles ; Scottie Bell ; Carlos Bass ; Mima Robledo Thomas E. ; Alessio Gutiérrez ; Joe Guzman ; Rufina Mata ; Marybel Alvarez ; Augusto Oviedo ; Erin Holly ; Ree Virgen ; Epi Scruggs ; Joao Oleary ; Marina Carmona ; Alexsander Melgoza ; Abdulaziz Lara ; Eze Patterson ; Virgilio Arzate ; Scottie No ; Todd Nino ; Guadalupe Falk ; Zeeshan Jeffery ; Bam Bach Other Interventions: Discharge Summary Assessment (RN) Last Done: 12/14/20 08:01
[2020-12-14] MEDS ORDERED: INSULIN GLARGINE SOLOSTAR 100 UNITS/ML 3 ML PEN SC SCH (09:00)
== END 2020-12-14 12:52 | disposition home health service (06) | DRG 470 ==
LOC: ASU 05:02 → 3E 05:02

== ENCOUNTER 2022-11-04 08:47 | Inpatient (IN) ==
--- NOTE | 2022-10-31 11:09 | Anesthesiology Consultation ---
Date of Service October 31, 2022 Assessment & Plan (1) Encounter for pre-operative examination: Chart Review Chart Review: Pending: Refer to Additional Notes / Consult section (pending most recent cardio note and any updated cardiac testing ) and Patient NOT seen in Pre Admission Testing - Please attempt to get last cardio note from 10/22/22 and any recent cardiac testing (EKG, ECHO, stress test) - Check BSG AM DOS -COVID screening: Per PAT nursing assessment on 10/31/22. No known COVID-19 positive contacts or current COVID-19 related symptoms. Travel screen negative. Patient is NOT vaccinated for Covid. At surgeon discretion if preop Covid testing being done. Left total knee arthroplasty 12/11/20= Done under SAB at L3-4 with 1 attempt History Surgery Operation Date: 11/04/22 07:45 Proposed Procedures p L2-S1 Decompression and Fusion, Spinal Cord Monitoring - Jared Pate, Height/Weight Height: 5 ft 5 in Weight: 90.718 kg Allergies Allergy/AdvReac Type Severity Reaction Status Date / Time morphine Allergy Mild felt funny Verified 10/31/22 09:06 Medications Home Medications Medication Instructions Recorded Confirmed Last Taken bumetanide 2 mg tablet 0.25 mg PO QAM 11/09/20 10/31/22 12/10/20 06:15 cholecalciferol (vitamin D3) 25 25 mcg PO QAM 11/09/20 10/31/22 12/10/20 06:15 mcg (1,000 unit) capsule (Vitamin D3) clopidogrel 75 mg tablet (Plavix) 75 mg PO QAM 11/09/20 10/31/22 12/04/20 ferrous sulfate 324 mg (65 mg 324 mg PO QAM 11/09/20 10/31/22 Unknown iron) tablet,delayed release insulin glargine 100 unit/mL 40 unit subcut QAM 11/09/20 10/31/22 12/10/20 09:00 subcutaneous solution (Lantus U-100 Insulin) liraglutide 0.6 mg/0.1 mL (18 mg/3 1.2 mg subcut QAM 11/09/20 10/31/22 12/10/20 04:15 mL) subcutaneous pen injector (Victoza 2-Clem) spironolactone 25 mg tablet 25 mg PO QAM 11/09/20 10/31/22 12/07/20 tamsulosin 0.4 mg capsule 0.4 mg PO HS 11/09/20 10/31/22 12/11/20 04:15 polyethylene glycol 3350 17 1 g PO DAILY PRN Constipation 12/11/20 10/31/22 Unknown gram/dose oral powder (Miralax) apixaban 5 mg tablet (Eliquis) 5 mg PO BID 10/31/22 10/31/22 Unknown aspirin 81 mg tablet,delayed 81 mg PO QAM 10/31/22 10/31/22 Unknown release atorvastatin 80 mg tablet 40 mg PO QAM 10/31/22 10/31/22 Unknown carvedilol 12.5 mg tablet (Coreg) 6.25 mg PO BID 10/31/22 10/31/22 Unknown hydralazine 10 mg tablet 10 mg PO TID 10/31/22 10/31/22 Unknown isosorbide mononitrate 10 mg tablet 10 mg PO TID 10/31/22 10/31/22 Unknown pantoprazole 40 mg tablet,delayed 40 mg PO BID 10/31/22 10/31/22 Unknown release pregabalin 150 mg capsule 150 mg PO BID 10/31/22 10/31/22 Unknown tramadol 50 mg tablet 50 mg PO TID 10/31/22 10/31/22 Unknown Past Medical History Medical History Afib Dx 1 week ago with pt's cardio > Eliquis > no pacer Anemia BPH (benign prostatic hyperplasia) CAD (coronary artery disease) s/p multiple remote stents, CABG x5 (1995), CABG x3 (2018)- follows with [facility] (Dr. Richardson Valenzuela) Chronic back pain Chronic kidney disease, stage [address] Juan in in [place] [phone] Congestive heart failure follows with [facility] (Dr. Richardson Valenzuela) Diabetes mellitus, type 2 IDDM Hyperlipidemia Hypertension Ischemic cardiomyopathy Macular degeneration receives injections in eyes Sleep apnea no device Spinal stenosis TIA (transient ischemic attack) 1996 Past Family History Family History Other Family history non-contributory Past Surgical History Surgical History History of arthroscopy of right knee History of colonoscopy History of elbow surgery left tendon History of esophagogastroduodenoscopy (EGD) History of total left knee replacement Hx of CABG CABG x5 (1995), CABG x3 (2018) Hx of repair of right rotator cuff S/P epidural steroid injection Social History Smoking Status: Former smoker Do You Dip or Chew Tobacco: No Hx Alcohol Use: No Hx Substance Use: No substance use type: does not use Lab Results Anesthesia Preop Results Results Anesthesia Widget: WBC 6.58 K/ul (4.8-10.8) 10/07/22 Hgb 11.2 g/dl (14.0-18.0) L 10/07/22 Hct 32.2 % (40.1-51.0) L 10/07/22 Plt 200 K/uL (130-400) 10/07/22 Na 141 mmol/L (136-145) 10/07/22 K 4.3 mmol/L (3.5-5.1) 10/07/22 Cl 107 mmol/L (98-107) 10/07/22 CO2 28 mmol/L (21-32) 10/07/22 BUN 34 mg/dl (6-23) H 10/07/22 Creat 1.64 mg/dl (0.6-1.4) H 10/07/22 Glucose Level 200 mg/dl (70-99(Fasting)) H 10/07/22 PT 10.7 Seconds (9.0-12.0) 10/07/22 PTT 29.6 Seconds (21.0-31.0) 10/07/22 INR 1.0 (0.9-1.1) 10/07/22 Urine Color Yellow 10/07/22 Urine Appearance Clear (Clear) 10/07/22 Urine pH 5.0 (4.5-7.5) 10/07/22 Urine Specific [place] 1.022 (1.000-1.030) 10/07/22 Urine Protein 3+ (Negative) H 10/07/22 Urine Glucose (UA) 1+ (Negative) H 10/07/22 Urine Ketones Negative (Negative) 10/07/22 Urine Blood Negative (Negative) 10/07/22 Urine Nitrite Negative (Negative) 10/07/22 Urine Bilirubin Negative (Negative) 10/07/22 Urine Urobilinogen Negative (Negative) 10/07/22 Urine Leukocyte Esterase Negative (Negative) 10/07/22 Urine WBC (Auto) 1-5 /hpf (0-5) 10/07/22 Urine RBC (Auto) 0-4 /hpf (0-4) 10/07/22 Urine Hyaline Casts (Auto) 1-5 /lpf (0-5) 10/07/22 Urine Epithelial Cells (Auto) 10-20 /lpf (0-5) H 10/07/22 Urine Bacteria (Auto) Negative (Negative) 10/07/22 Testing Laboratory Results *Anemia- chronic and stable (mildly improved) * Elevated creatinine - chronic and stable Electrocardiogram Date: 10/07/22 Sinus rhythm at 77bpm LAFB. RBBB When compared to EKG from Nov 16, 2020- no significant change was found per cardio Chest X-Ray Date: 10/07/22 FINDINGS: PA and lateral chest radiographs are compared to study dated 11/16/2020. The patient is status post midline sternotomy. The heart is enlarged noting atherosclerotic calcification of the thoracic aorta. The pulmonary vasculature is noncongested. Chronic interstitial thickening similar to previous. Mild scarring/atelectasis is noted at the lung bases. The lungs and pleural spaces are otherwise clear. There is no pneumothorax. The skeletal structures are osteopenic. The bony thorax appears intact. Degenerative change is noted in the shoulders and spine. IMPRESSION: Cardiomegaly with no active disease in the chest. Echocardiogram Date: 02/09/20 Mild LAD. Moderate LVD. Mild concentric LVH. There are segmental wall motion abnormalities involving the distal septum and apex. Other segments are not compensating and overall LV systolic function is moderately impaired. LVEF 40%. The features are consistent with ischemic dilated cardiomyopathy with moderate systolic dysfunction. Moderate diastolic dysfunction of the left ventricle. Mild right-sided chamber dilation. Aortic sclerosis. Mild TR. Compared to echo from 06/23/19, EF has slightly improved to 40% compared to previous EF of 35% per report. Stress Test Date: 12/04/20 Type: nuclear Myocardial perfusion imaging: Abnormal. There is evidence of prior nontransmural infarction involving the inferior/inferior lateral wisdom. No evidence of transient myocardial ischemia Gated SPECT imaging calculates LVEF of 54%. LV global systolic function is normal. Hypokinesis of the inferior lateral wall. Cardiac Catheterization Date: 08/23/18 Severe three-vessel CAD. Status post CABG which at this point his only patent graft is a JAUREGUI to the diagonal branch which collateralizes the LAD. The other grafts are now all occluded. Severe LV dysfunction with EF around 25%. Widely patent iliacs on both sides. Patient had subsequent CABG
[~2022-11-04 08:47] MED LIST: ACETAMINOPHEN 500 MG TAB PO SCH; CeleBREX 200 MG CAP PO SCH; GABAPENTIN 300 MG CAP PO SCH; LR 15ML/HR IV SCH; ceFAZolin 2000MG 2,000 MG/15 ML SYR IV SCH
[2022-11-04] MEDS ORDERED: ONDANSETRON INJ 2 MG/ML 2 ML VIAL IV PRN ×2 (10:01→15:27)
[2022-11-04] MEDS ORDERED: ePHEDrine sulfate 50 MG/ML AMP IV PRN (10:01)
[2022-11-04] MEDS ORDERED: HYDROmorphone INJ 2 MG/ML SYR/VIAL IV PRN (10:01)
[2022-11-04] MEDS ORDERED: ATROPINE SULFATE 0.1 MG/ML 10ML SYR IV PRN (10:01)
[2022-11-04] MEDS ORDERED: fentaNYL citrate 100 MCG/2 ML VIAL ONE ×2 (10:04→13:32)
--- NOTE | 2022-11-04 10:12 | History & Physical Bridge Note ---
Date of Service November 04, 2022 History & Physical Bridge Note I have examined the patient, reviewed the History & Physical and in the interval since the performance of the History & Physical I have noted the following changes of clinical significance: no changes noted
--- NOTE | 2022-11-04 10:13 | History & Physical Report ---
Date of Service November 04, 2022 Assessment & Plan (1) Neurogenic claudication due to lumbar spinal stenosis: Plan: L2-S1 decompression and fusion History of Present Illness Chief Complaint: Back and leg pain Primary Care Provider: ITALO Valerio This is a 72-year-old male presents with chronic persistent back and leg pain after failing extensive course of nonoperative care is here for surgical invention. Allergies Allergy/AdvReac Type Severity Reaction Status Date / Time morphine Allergy Mild felt funny Verified 11/04/22 09:15 Home Medications Medication Instructions Recorded Confirmed Type bumetanide 2 mg tablet 0.25 mg PO QAM 11/09/20 11/04/22 History cholecalciferol (vitamin D3) 25 25 mcg PO QAM 11/09/20 11/04/22 History mcg (1,000 unit) capsule (Vitamin D3) clopidogrel 75 mg tablet (Plavix) 75 mg PO QAM 11/09/20 11/04/22 History ferrous sulfate 324 mg (65 mg 324 mg PO QAM 11/09/20 11/04/22 History iron) tablet,delayed release insulin glargine 100 unit/mL 40 unit subcut QAM 11/09/20 11/04/22 History subcutaneous solution (Lantus U-100 Insulin) liraglutide 0.6 mg/0.1 mL (18 mg/3 1.2 mg subcut QAM 11/09/20 11/04/22 History mL) subcutaneous pen injector (Victoza 2-Clem) spironolactone 25 mg tablet 25 mg PO QAM 11/09/20 11/04/22 History tamsulosin 0.4 mg capsule 0.4 mg PO HS 11/09/20 11/04/22 History polyethylene glycol 3350 17 1 g PO DAILY PRN Constipation 12/11/20 11/04/22 History gram/dose oral powder (Miralax) apixaban 5 mg tablet (Eliquis) 5 mg PO BID 10/31/22 11/04/22 History aspirin 81 mg tablet,delayed 81 mg PO QAM 10/31/22 11/04/22 History release atorvastatin 80 mg tablet 40 mg PO QAM 10/31/22 11/04/22 History carvedilol 12.5 mg tablet (Coreg) 6.25 mg PO BID 10/31/22 11/04/22 History hydralazine 10 mg tablet 10 mg PO TID 10/31/22 11/04/22 History isosorbide mononitrate 10 mg tablet 10 mg PO TID 10/31/22 11/04/22 History pantoprazole 40 mg tablet,delayed 40 mg PO BID 10/31/22 11/04/22 History release pregabalin 150 mg capsule 150 mg PO BID 10/31/22 11/04/22 History tramadol 50 mg tablet 50 mg PO TID 10/31/22 10/31/22 History Past Med/Surg History Medical History Afib Dx 1 week ago with pt's cardio > Eliquis > no pacer Anemia BPH (benign prostatic hyperplasia) CAD (coronary artery disease) s/p multiple remote stents, CABG x5 (1995), CABG x3 (2018)- follows with [facility] (Dr. Richardson Valenzuela) Chronic back pain Chronic kidney disease, stage [address] Juan in in [id number] Congestive heart failure follows with [facility] (Dr. Richardson Valenzuela) Diabetes mellitus, type 2 IDDM Hyperlipidemia Hypertension Ischemic cardiomyopathy Macular degeneration receives injections in eyes Sleep apnea no device Spinal stenosis TIA (transient ischemic attack) 1996 Surgical History History of arthroscopy of right knee History of colonoscopy History of elbow surgery left tendon History of esophagogastroduodenoscopy (EGD) History of total left knee replacement Hx of CABG CABG x5 (1995), CABG x3 (2018) Hx of repair of right rotator cuff S/P epidural steroid injection Family History Other Family history non-contributory Social History (Updated 12/12/20 @ 12:27 by Tyrone Awad PA-C) Smoking Status: Former smoker Second Hand Exposure: No; Do You Dip or Chew Tobacco: No; Tobacco Cessation Education Requested by Patient: No Hx Alcohol Use: No Hx Substance Use: No Preferred Language: Hebrew Communication Ability: Effective Raised Printer Required: No Beliefs That Will Affect Care: None marital status: Current Living Situation: Spouse Other Information That Helps Us Care for You: No Feels Safe at Home: Yes Safety Concerns: Feels Safe At This Time Assistive Devices: Glasses Physical Exam Physical Exam: Patient is alert and oriented Heart regular rhythm Lungs clear Results & Data Results & Data ([facility]) Vital Signs (Past 12 Hours) Vital Signs Temp Pulse Resp BP BP Pulse Ox O2 Del Method 11/04/22 09:23 Room Air 11/04/22 09:23 36.8 C 96 H 20 170/105 H 152/108 H 96 Room Air
[2022-11-04] MEDS ORDERED: BUPIVACAINE/EPINEPHRINE 0.5% MPF 1:200,000 30 ML VIAL ONE (10:22)
[2022-11-04] MEDS ORDERED: ceFAZolin 330 MG/ML 1 GM VIAL ONE (10:22)
[2022-11-04] MEDS ORDERED: FLOSEAL HEMOSTATIC MATRIX 10ML TOP ONE (11:31)
[2022-11-04] MEDS ORDERED: LIDOCAINE 2% MPF LOCAL 5 ML VIAL INFIL ONE (11:55)
[2022-11-04] MEDS ORDERED: DEXAMETHASONE SOD INJ 4 MG/ML VIAL ONE (11:55)
[2022-11-04] MEDS ORDERED: ROCURONIUM BROMIDE 10 MG/ML 5 ML VIAL IV ONE (11:55)
[2022-11-04] MEDS ORDERED: METOPROLOL TARTRATE 1 MG/ML VIAL IV ONE ×2 (11:55→14:25)
[2022-11-04] MEDS ORDERED: PROPOFOL IV EMULSION 10 MG/ML 20 ML VIAL IV ONE (11:55)
[2022-11-04] MEDS ORDERED: PHENYLEPHRINE HCL 10 MG/ML VIAL ONE (11:55)
[2022-11-04] MEDS ORDERED: PROPOFOL IV EMULSION 10 MG/ML 100 ML VIAL IV ONE (13:32)
--- NOTE | 2022-11-04 13:41 | Operative Report ---
Post Operative Report Pre & Post Diagnosis Operation Date: 11/04/22 10:25 Pre-Op Diagnosis: Spinal Stenosis, Lumbar Region with Neurogenic Cla Post-Op Diagnosis: Spinal Stenosis, Lumbar Region with Neurogenic Cla I identified the patient and participated in the time-out.: Yes Procedure Operation Date: 11/04/22 10:25 Actual Procedures #1 lumbar decompression bilateral medial facetectomies and foraminotomies L1-L2, L2-L3, L3-L4, L4-L5 and L5-S1. #2 posterior spinal fusion L2-S1. #3 placement posterior segmental instrumentation L2-S1. #4 interbody fusion L2-L3, L3-L4, L4-5 and L5-S1. #5 placement of Spira 10 x 26 mm at L2-L3, 9 x 26 mm at L3-L4, 12 x 26 mm at L4-5 and 12 x 26 mm of L5-S1. #6 placement locally harvested morselized autograft in the posterior gutters. #7 placement of I factor and interbody cages and infuse collagen sponge, and master graft in the posterior gutters. Surgeon Jared Pate, DO Director Of Agriculture Marina King Estimated Blood Loss 950 Findings See Below The patient is 5 foot 5 weighing over 91 kg with a BMI in excess of 33. This combined with an EBL of greater than 950 cc created significant technical difficulty requiring her deepest retractors longer instruments in order to perform his procedure. This at least 50% increased operative time. Specimens None Indications This is a 72-year-old male who presents above-mentioned diagnosis and failing course of nonoperative care is here for surgical invention. Description of Procedure Patient was met with identified informed consent obtained. Patient was then taken to the operative suite underwent patient placed in a prone position jacks table top Armand frame. All bony prominences well-padded eyes inspected to ensure no external pressure placed upon them. This point the lumbar spine was prepped and draped in a sterile fashion. Sharp dissection with the assistance of Bovie cautery was performed down to and exposing the lamina transverse processes of L2-L3 L4-5 and the sacral ala bilaterally. From caudal cephalad fashion complete laminectomy L5 L4 L3 L2 and partial laminectomy of L1 was performed including bilateral medial facetectomies and foraminotomies addressing severe spinal stenosis. Pedicle screws were then placed in L2 L3-L4-L5 and S1 levels bilaterally with assistance of fluoroscopy and appropriately sized elisabeth contoured and placed. By way of a transforaminal approach on the right complete discectomy of L5-S1 was performed endplates curetted to subcortical bleeding bone and a 12 x 26 mm spiral cage with I factor tapped in position. Then proceeded L4-[address] of transforaminal approach and right complete discectomy performed endplates curetted to subcortically bone and again a 12 x 26 mm spiral cage with I factor tapped in position. Then proceeded to L3-L4 and again by way of a transforaminal approach and right complete discectomy performed endplates curetted to subcortical bleeding bone and a 9 x 26 mm spiral cage with I factor tapped in position. Lastly proceeded to L2-L3 and again by way of transforaminal approach and right complete discectomy performed endplates curetted to subcortical bleeding bone and a 10 x 26 mm spiral cage with I factor tapped in position. The rods were then locked in final position bilaterally. The transverse processes of L2 L3-L4-L5 and the sacral ala burred to subcortical bleeding bone. Infuse collagen sponge bone mass graft locally harvested morselized autograft was then placed in the posterior lateral gutters. 15 round KYUNG drain inserted. The incision was then closed with 1 Vicryl the fascia 2-0 Vicryl subcutaneously and 4 Monocryl for final skin closure. Steri-Strip liang rile dressings placed. Patient waken taken to PACU in stable condition. Please note spinal cord monitoring was utilized at the procedure no changes noted. Lastly Marina King was present at the entire surgery involved the patient positioning complex portion of the surgery and final skin closure. I attest to the content of the Intraoperative Record and any orders documented therein. Any exceptions are noted below.
--- NOTE | 2022-11-04 14:12 | Fluoroscopy Report ---
FL lumbar spine 2-3V CLINICAL HISTORY: L2-S1 DFIstatus post lumbar spine fusion COMPARISON STUDY: MRI lumbar spine 12/24/2021 FLUOROSCOPY TIME: 3 spot fluoroscopic images of the lumbar spine were obtained utilizing 40.5 seconds fluoroscopy time FLUOROSCOPY IMAGES: 3 EXPOSURE DOSE: 34.65 mGy FINDINGS: Posterior interbody elisabeth and screw fusion hardware with discectomy is noted at what appears to be the L2-S1 levels. The hardware appears intact. Multilevel spondylitic spurring. No unexpected o paque foreign body identified. IMPRESSION: Fluoroscopic assistance as above. ACT 112: Negative or not required by law. Electronically signed by: Demetrius Peterson M.D. 11/04/2022 2:10 PM
[2022-11-04] MEDS: fentaNYL citrate 100 MCG/2 ML VIAL IV PRN ×2 (14:13→14:19)
[2022-11-04] MEDS ORDERED: METOPROLOL TARTRATE 1 MG/ML VIAL IV STA (14:28)
--- NOTE | 2022-11-04 14:52 | Anesthesiology Progress Note ---
Date of Service November 04, 2022 Anesthesia Post Procedure Vital Signs Vital Signs: Temp Pulse Pulse Pulse Resp BP BP 11/04/22 14:45 101 H 16 11/04/22 14:35 110 H 15 11/04/22 14:28 115 H 144/103 H 11/04/22 14:25 115 H 11 L 11/04/22 14:15 102 H 13 11/04/22 14:05 97 H 16 11/04/22 13:57 36.2 C L 106 H 12 11/04/22 09:23 11/04/22 09:23 36.8 C 96 H 20 170/105 H BP Pulse Ox O2 Del Method O2 Flow Rate 11/04/22 14:45 156/100 H 95 Nasal Cannula 3 11/04/22 14:35 140/104 H 96 Nasal Cannula 3 11/04/22 14:28 11/04/22 14:25 144/103 H 96 Nasal Cannula 3 11/04/22 14:15 149/102 H 93 Nasal Cannula 3 11/04/22 14:05 144/102 H 96 Nasal Cannula 3 11/04/22 13:57 124/93 93 Nasal Cannula 3 11/04/22 09:23 Room Air 11/04/22 09:23 152/108 H 96 Room Air Pain Intensity Bilateral Lower Back: Pain Intensity: 5 Back: Pain Intensity: 2 Transfer of Care Handoff Completed per policy Notes Mental Status: alert / awake / arousable and participated in evaluation Patient Amnestic to Procedure: Yes Nausea / Vomiting: adequately controlled Pain: adequately controlled Airway Patency, RR, SpO2: stable & adequate BP & HR: stable & adequate Hydration State: stable & adequate Anesthetic Complications: no major complications apparent and Pt Satisfied with anesthetic care
[2022-11-04] MEDS ORDERED: ONDANSETRON 4 MG OD TAB PO PRN (15:27)
[2022-11-04] MEDS ORDERED: diphenhydrAMINE Capsule 25 MG CAP PO PRN (15:27)
[2022-11-04] MEDS ORDERED: DO NOT ADMINISTER PNEUMOCOCCAL VACCINE PRN (15:27)
[2022-11-04] MEDS ORDERED: ALUMINUM/MAGNESIUM SUSP 30 ML UDC PO PRN (15:27)
[2022-11-04] MEDS ORDERED: METOCLOPRAMIDE HCL INJ 5 MG/ML 2 ML VIAL IV PRN (15:27)
[2022-11-04] MEDS ORDERED: hydrOXYzine HCl 25 MG TAB PO PRN (15:27)
[2022-11-04] MEDS ORDERED: PROMETHAZINE HCL 12.5 MG in SODIUM CHLORIDE 0.9% 50 ML IV PRN (15:27)
[2022-11-04] MEDS ORDERED: ACETAMINOPHEN 500 MG TAB PO PRN (15:27)
[2022-11-04] MEDS ORDERED: DO NOT ADMINISTER FLU VACCINE PRN (15:27)
[2022-11-04] MEDS ORDERED: SODIUM CHLORIDE 0.9% 1000ML 1,000 ML IV SCH (15:27)
[2022-11-04] MEDS ORDERED: PHARMACY GLYCEMIC MGMT CONSULT PRN (15:27)
[2022-11-04] MEDS ORDERED: ACETAMINOPHEN 1,000 MG/100 ML VIAL IV PRN (15:27)
[2022-11-04] MEDS ORDERED: MAGNESIUM HYDROXIDE SUSP 30 ML UDC PO PRN (15:27)
[2022-11-04] MEDS ORDERED: LORazepam 2 MG/1 ML VIAL IV PRN (15:27)
[2022-11-04] MEDS ORDERED: SOD PHOSPHATE/SOD BIPHOSPHATE ENEMA 132 ML BTL PR PRN (15:27)
[2022-11-04] MEDS ORDERED: FAMOTIDINE 20 MG TAB PO PRN (15:27)
[2022-11-04] MEDS ORDERED: bisacodyL 10 MG SUPP PR PRN (15:27)
[2022-11-04] MEDS ORDERED: NALOXONE HCL 0.4 MG/1 ML VIAL/CARP IV PRN (15:27)
[2022-11-04] MEDS ORDERED: LORazepam 0.5 MG TAB PO PRN (15:27)
[2022-11-04] MEDS: oxyCODONE HCL IR 5 MG TAB (IMMEDIATE RELEASE) PO PRN (16:05)
[2022-11-04] MEDS: hydrALAZINE 10 MG TAB PO SCH ×2 (16:25→20:45)
[2022-11-04] MEDS ORDERED: DEXTROSE 50% 50 ML SYRINGE IV PRN (16:30)
[2022-11-04] MEDS ORDERED: GLUCOSE 10 TAB/TUBE PO PRN (16:30)
[2022-11-04] MEDS ORDERED: GLUCAGON FOR INJ 1 MG VIAL IM PRN (16:30)
[2022-11-04] MEDS ORDERED: GLUCOSE 40% GEL 15 GM TUBE PO PRN (16:30)
[2022-11-04] MEDS ORDERED: CARBOHYDRATES FOR HYPOGLYCEMIA PO PRN (16:30)
--- NOTE | 2022-11-04 17:20 | Hospitalist Consultation ---
Date of Consultation November 04, 2022 Assessment & Plan (1) Neurogenic claudication due to lumbar spinal stenosis: Now s/p lumbar decompression and fusion by Dr. Pate on 11/04 Postoperative management as per orthopedic spine surgeon Pain control, bowel regimen Continue home pregabalin PT/OT evaluations requested Follow CBC, BMP in the morning Reduce IV fluid rate to 100 mL/h and only give 1 L (2) Hypertension: Blood pressures are controlled continue Bumex Continue Bumex, carvedilol, isosorbide, and spironolactone (3) Diabetes mellitus, type 2: Pharmacy is managing glycemic control with basal and bolus insulin Hemoglobin A1c 7.2% in 2020 Check hemoglobin A1c in the morning (4) Chronic kidney disease, stage 3: CKD stage III, renal function around baseline with creatinine 1.6 -Avoid nephrotoxins -renally dose meds when appropriate -follow BMP (5) BPH (benign prostatic hyperplasia): No acute issues Continue tamsulosin Monitor for urinary retention (6) CAD (coronary artery disease): Status post CABG x2 Continue aspirin but holding Plavix for now Continue atorvastatin, carvedilol (7) Anemia: Hemoglobin is mildly low at baseline at 11 and anemia is normocytic Check iron studies, TSH, B12 and folate in the morning Continue home ferrous sulfate (8) Hyperlipidemia: Continue atorvastatin Plan Disposition-continued stay, hospitalist service will follow along History of Present Illness Reason for Consultation: Medical Management Requesting Physician: Dr. Pate Attending Physician: Jared Pate, History of Present Illness This patient is a 72-year-old male with history of CAD s/p CABG x2, ischemic cardiomyopathy, atrial fibrillation on Eliquis, TIA, DM 2, CKD stage III, HTN, BPH, macular degeneration, and MEIR who was admitted to the hospital status post lumbar decompression and fusion. The hospitalist service is consulted for postoperative medical management. The patient reports feeling very well except for some soreness in the lower back. Denies any radiating pain down the legs. He denies any chest pains or shortness of breath, no lightheadedness or nausea. Last bowel movement was this morning. Allergies Allergy/AdvReac Type Severity Reaction Status Date / Time morphine Allergy Mild felt funny Verified 11/04/22 09:15 Home Medications Medication Instructions Recorded Confirmed Type bumetanide 2 mg tablet 0.25 mg PO QAM 11/09/20 11/04/22 History cholecalciferol (vitamin D3) 25 25 mcg PO QAM 11/09/20 11/04/22 History mcg (1,000 unit) capsule (Vitamin D3) clopidogrel 75 mg tablet (Plavix) 75 mg PO QAM 11/09/20 11/04/22 History ferrous sulfate 324 mg (65 mg 324 mg PO QAM 11/09/20 11/04/22 History iron) tablet,delayed release insulin glargine 100 unit/mL 40 unit subcut QAM 11/09/20 11/04/22 History subcutaneous solution (Lantus U-100 Insulin) liraglutide 0.6 mg/0.1 mL (18 mg/3 1.2 mg subcut QAM 11/09/20 11/04/22 History mL) subcutaneous pen injector ([employer] 2-Clem) spironolactone 25 mg tablet 25 mg PO QAM 11/09/20 11/04/22 History tamsulosin 0.4 mg capsule 0.4 mg PO HS 11/09/20 11/04/22 History polyethylene glycol 3350 17 1 g PO DAILY PRN Constipation 12/11/20 11/04/22 History gram/dose oral powder (Miralax) apixaban 5 mg tablet (Eliquis) 5 mg PO BID 10/31/22 11/04/22 History aspirin 81 mg tablet,delayed 81 mg PO QAM 10/31/22 11/04/22 History release atorvastatin 80 mg tablet 40 mg PO QAM 10/31/22 11/04/22 History carvedilol 12.5 mg tablet (Coreg) 6.25 mg PO BID 10/31/22 11/04/22 History hydralazine 10 mg tablet 10 mg PO TID 10/31/22 11/04/22 History isosorbide mononitrate 10 mg tablet 10 mg PO TID 10/31/22 11/04/22 History pantoprazole 40 mg tablet,delayed 40 mg PO BID 10/31/22 11/04/22 History release pregabalin 150 mg capsule 150 mg PO BID 10/31/22 11/04/22 History tramadol 50 mg tablet 50 mg PO TID 10/31/22 10/31/22 History Patient History Medical History Afib Dx 1 week ago with pt's cardio > Eliquis > no pacer Anemia BPH (benign prostatic hyperplasia) CAD (coronary artery disease) s/p multiple remote stents, CABG x5 (1995), CABG x3 (2019)- follows with [facility] [place] (Dr. Richardson Valenzuela) Chronic back pain Chronic kidney disease, stage [address] Juan in in [place] [phone] Congestive heart failure follows with [facility] [place] (Dr. Richardson Valenzuela) Diabetes mellitus, type 2 IDDM Hyperlipidemia Hypertension Ischemic cardiomyopathy Macular degeneration receives injections in eyes Sleep apnea no device Spinal stenosis TIA (transient ischemic attack) 1996 Surgical History History of arthroscopy of right knee History of colonoscopy History of elbow surgery left tendon History of esophagogastroduodenoscopy (EGD) History of total left knee replacement Hx of CABG CABG x5 (1995), CABG x3 (2018) Hx of repair of right rotator cuff S/P epidural steroid injection Family History Other Family history non-contributory Social History Smoking Status: Former smoker Second Hand Exposure: No; Do You Dip or Chew Tobacco: No; Tobacco Cessation Education Requested by Patient: No Hx Alcohol Use: No Hx Substance Use: No Preferred Language: American Communication Ability: Effective 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 Beliefs That Will Affect Care: None marital status: Current Living Situation: Spouse Other Information That Helps Us Care for You: No Feels Safe at Home: Yes Safety Concerns: Feels Safe At This Time Assistive Devices: Glasses Review of Systems Review of Systems: All systems reviewed & are unremarkable except as noted in HPI & below Physical Exam Constitutional: WD/WN, vitals as above Eyes: PERRL, conjunctivae normal, anicteric sclerae ENMT: external ear and nose normal, oropharynx normal Neck: trachea midline, no thyromegaly Respiratory: normal respiratory effort, lungs clear to auscultation Cardiovascular: Rate/Rhythm: regular rate and + irregularly irregular Heart Sounds: no murmur Chest (Breasts): Chest: normal inspection of chest Gastrointestinal (Abdomen): normal bowel sounds, soft, nontender, no hepatosplenomegaly Musculoskeletal: Extremities: extremities normal to inspection; no cyanosis and no clubbing Skin: no rashes, warm and dry Neurologic: moves all extremities and awake; no focal motor deficits Psychiatric: A+Ox3, euthymic affect Lymphatic: no lymphedema Results & Data Results & Data ([facility]) Vital Signs (Past 12 Hours) Vital Signs Temp Pulse Pulse Pulse Resp BP BP 11/04/22 16:30 36.3 C L 89 18 11/04/22 15:57 36.4 C L 98 H 11/04/22 15:30 36.3 C L 98 H 16 11/04/22 15:05 94 H 13 11/04/22 14:55 36.8 C 111 H 16 11/04/22 14:45 101 H 16 11/04/22 14:35 110 H 15 11/04/22 14:28 115 H 144/103 H 11/04/22 14:25 115 H 11 L 11/04/22 14:15 102 H 13 11/04/22 14:05 97 H 16 11/04/22 13:57 36.2 C L 106 H 12 11/04/22 09:23 11/04/22 09:23 36.8 C 96 H 20 170/105 H BP Pulse Ox O2 Del Method O2 Flow Rate 11/04/22 16:30 146/95 H 99 Nasal Cannula 2 11/04/22 15:57 146/93 H 100 Nasal Cannula 2 11/04/22 15:30 168/91 H 100 Nasal Cannula 2 11/04/22 15:05 166/103 H 95 Nasal Cannula 3 11/04/22 14:55 140/107 H 94 Nasal Cannula 3 11/04/22 14:45 156/100 H 95 Nasal Cannula 3 11/04/22 14:35 140/104 H 96 Nasal Cannula 3 11/04/22 14:28 11/04/22 14:25 144/103 H 96 Nasal Cannula 3 11/04/22 14:15 149/102 H 93 Nasal Cannula 3 11/04/22 14:05 144/102 H 96 Nasal Cannula 3 11/04/22 13:57 124/93 93 Nasal Cannula 3 11/04/22 09:23 Room Air 11/04/22 09:23 152/108 H 96 Room Air PG Care Time/CCT Total # of Minutes Spent Total Time Spent with Patient: Total time spent is greater than 50% in coordination of care (as documented) at patient's floor/unit and/or counseling patient: Coding Level of Care Code INP/OBS CONSULT LVL 3, 45 MIN Diagnoses Neurogenic claudication due to lumbar spinal stenosis M48.062 Hypertension I10 Hypertension type: essential hypertension Diabetes mellitus, type 2 E11.9 Chronic kidney disease, stage 3 N18.32 Chronic kidney disease stage 3 subtype: stage 3b (GFR 30-44) BPH (benign prostatic hyperplasia) N40.0 Lower urinary tract symptom presence: symptoms absent CAD (coronary artery disease) I25.119 Associated angina: with unspecified angina Coronary Disease-Associated Artery/Lesion type: [place] artery [place] vs. transplanted heart: [place] heart Anemia D50.9 Anemia type: iron deficiency Iron deficiency anemia type: unspecified iron deficiency Hyperlipidemia E78.5 Hyperlipidemia type: unspecified (1) BPH (benign prostatic hyperplasia) Lower urinary tract symptom presence: symptoms absent Qualified Code(s): N40.0 - Benign prostatic hyperplasia without lower urinary tract symptoms (2) Chronic kidney disease, stage 3 Chronic kidney disease stage 3 subtype: stage 3b (GFR 30-44) Qualified Code(s): N18.32 - Chronic kidney disease, stage 3b (3) CAD (coronary artery disease) Associated angina: with unspecified angina Coronary Disease-Associated Artery/Lesion type: [place] artery [place] vs. transplanted heart: [place] heart Qualified Code(s): I25.119 - Atherosclerotic heart disease of [place] coronary artery with unspecified angina pectoris (4) Anemia Anemia type: iron deficiency Iron deficiency anemia type: unspecified iron deficiency Qualified Code(s): D50.9 - Iron deficiency anemia, unspecified (5) Hyperlipidemia Hyperlipidemia type: unspecified Qualified Code(s): E78.5 - Hyperlipidemia, unspecified (6) Hypertension Hypertension type: essential hypertension Qualified Code(s): I10 - Essential (primary) hypertension
[2022-11-04] MEDS: INSULIN ASPART PER UNIT SC SCH ×2 (17:33→21:27)
[2022-11-04] MEDS: carvediloL 6.25 MG TAB PO SCH (20:45)
[2022-11-04] MEDS: ceFAZolin 2000MG 2,000 MG/15 ML SYR IV SCH (20:45)
[2022-11-04] MEDS: TAMSULOSIN HCL 0.4 MG CAP PO SCH (20:46)
[2022-11-04] MEDS: PANTOprazole 40 MG TAB PO SCH (20:46)
[2022-11-04] MEDS: ISOSORBIDE MONONITRATE 20 MG TAB PO SCH (20:46)
[2022-11-04] MEDS: DOCUSATE SODIUM/SENNA 50/8.6MG TAB PO SCH (20:47)
[2022-11-04] MEDS: PREGABALIN 150 MG CAP PO SCH (21:08)
[2022-11-04] MEDS: traMADol HCL 50 MG TABLET PO PRN (21:26)
[2022-11-04] MEDS: LANTUS PER UNIT CHARGE SQ SCH (21:27)
[2022-11-05] MEDS: INSULIN ASPART PER UNIT SC SCH ×6 (00:31→21:19)
[2022-11-05] MEDS: oxyCODONE HCL IR 5 MG TAB (IMMEDIATE RELEASE) PO PRN ×3 (00:34→12:28)
[2022-11-05] MEDS: ceFAZolin 2000MG 2,000 MG/15 ML SYR IV SCH (04:00)
[2022-11-05] MEDS: HYDROmorphone INJ 1 MG/ML SYRINGE IV PRN ×2 (04:08→11:08)
[2022-11-05] MEDS: POLYETHYLENE (MIRALAX) 17 GM PACK PO SCH ×3 (05:45→17:45)
[2022-11-05 07:02] LABS: Basophils # (auto) 0.03 K/uL (0-0.2); Basophils % (auto) 0.3 %; Eosinophils # (auto) 0.01 K/uL (0-0.50); Eosinophils % (auto) 0.1 %; Hematocrit (blood only) 24.3 % (42.0-52.0); Hemoglobin 8.2 g/dl (14.0-18.0); Immature Granulocytes # (auto) 0.05 K/uL (0.01-0.20); Immature Granulocytes % (auto) 0.5 %; Lymphocytes % (auto) 12.2 %; Mean Corpuscular Hemoglobin 29.9 pg (25.0-34.0); Mean Corpuscular Hgb Conc 33.7 g/dL (32.0-36.0); Mean Corpuscular Volume 88.7 fL (80.0-100.0); Mean Platelet Volume 11.1 fL (9.4-12.4); Monocytes # (auto) 1.32 K/uL (0.11-0.59); Monocytes % (auto) 13.5 %; Neutrophils # (auto) 7.19 K/uL (1.40-6.50); Neutrophils % (auto) 73.4 %; Platelet Count 193 K/uL (130-400); RDW Coefficient of Variation 14.2 % (11.5-14.5); Red Blood Count 2.74 M/uL (4.70-6.10)
[2022-11-05 07:15] LABS: BUN Creatinine Ratio 17.4 (10-20); Calcium 8.5 mg/dl (8.5-10.1); Creatinine Clr Calc Pharmacy 29.2 ml/min; Est GFR (African American) 30.2 ml/min; Potassium 5.1 mmol/L (3.5-5.1)
[2022-11-05] MEDS ORDERED: SODIUM CHLORIDE 0.9% 250 ML IV PRN (07:47)
[2022-11-05] MEDS: ASPIRIN 81 MG ECTAB PO SCH (08:19)
[2022-11-05] MEDS: FERROUS SULFATE 325 MG TAB PO SCH (08:20)
[2022-11-05] MEDS: ISOSORBIDE MONONITRATE 20 MG TAB PO SCH ×3 (08:20→21:18)
[2022-11-05] MEDS: hydrALAZINE 10 MG TAB PO SCH ×3 (08:20→21:18)
[2022-11-05] MEDS: PANTOprazole 40 MG TAB PO SCH ×2 (08:20→21:18)
[2022-11-05] MEDS: CHOLECALCIFEROL 1,000 UNITS 25 MCG TAB PO SCH (08:21)
[2022-11-05] MEDS: ATORVASTATIN 40 MG TAB PO SCH (08:21)
[2022-11-05] MEDS: carvediloL 6.25 MG TAB PO SCH ×2 (08:21→21:18)
[2022-11-05] MEDS: PREGABALIN 150 MG CAP PO SCH (08:24)
[2022-11-05] MEDS ORDERED: SPIRONOLACTONE 25 MG TAB PO SCH (09:00)
[2022-11-05] MEDS ORDERED: BUMETANIDE 1 MG TAB PO SCH (09:00)
[2022-11-05] MEDS ORDERED: LANTUS PER UNIT CHARGE SQ STA (09:19)
[2022-11-05] MEDS ORDERED: LACTATED RINGER'S 1,000 ML IV SCH (10:30)
[2022-11-05 12:00] LABS: Estimated Average Glucose 154 mg/dl
--- NOTE | 2022-11-05 12:00 | Orthopedic Progress Note ---
Date of Service November 05, 2022 Assessment & Plan (1) Neurogenic claudication due to lumbar spinal stenosis: Plan: At this time we will continue physical therapy occupational therapy and hope for rehab in the next day or so. Admission and Anticipated Discharge Date Admission Date: November 04, 2022 Subjective Back pain controlled leg symptoms markedly improved Physical Exam Physical Exam: Patient is comfortable. Skin strength testing. Results & Data ([facility]) Vital Signs (Past 12 Hours) Vital Signs Temp Pulse Pulse Resp BP BP Pulse Ox 11/05/22 09:52 36.9 C 108 H 18 104/62 95 11/05/22 10:10 11/05/22 09:30 36.8 C 102 H 18 118/62 94 11/05/22 10:30 36.9 C 103 H 18 96/56 L 94 11/05/22 09:07 36.8 C 104 H 18 115/81 96 11/05/22 08:49 36.7 C 111 H 20 97/63 L 95 11/05/22 07:23 37.0 C 91 H 18 107/67 93 11/05/22 03:09 36.6 C 102 H 18 127/82 95 O2 Del Method O2 Flow Rate 11/05/22 09:52 11/05/22 10:10 Nasal Cannula 2 11/05/22 09:30 11/05/22 10:30 11/05/22 09:07 11/05/22 08:49 2 11/05/22 07:23 Nasal Cannula 2 11/05/22 03:09 Room Air
--- NOTE | 2022-11-05 13:25 | Pharmacy Report ---
Pharmacy Glycemic Short Note 2 - Date of Service November 05, 2022 - Glycemic Short BSG Results (Last 24 hours): 11/04/22 11/04/22 11/04/22 13:58 15:40 17:00 Glucose POC Glucose 114 H 116 H 196 H 11/04/22 11/05/22 11/05/22 20:36 00:23 04:02 Glucose POC Glucose 264 H 203 H 183 H 11/05/22 11/05/22 11/05/22 06:27 07:58 12:01 Glucose 172 H POC Glucose 180 H 213 H OUTPATIENT ANTIDIABETIC REGIMEN: * Lantus 40 units SQ daily * Victoza 1.2 mg SQ QAM * HbA1c = 7% on 11/05/22 ASSESSMENT: * 72 y/o M admitted for spinal surgery. Patient with history of Type 2 diabetes managed at home on basal Lantus insulin and Victoza. Will hold Victoza on admission and utilize basal/bolus insulin for glycemic management. * Yesterday, patient received 10 units of basal and 16 units of Novolog insulin. He did get Dexamethasone 4 mg IV x1 during surgery. * BSG trended up to 264 mg/dl last night. Fasting BSG this morning was 172 mg/dl. Additional Lantus 10 units added this morning and continued Lantus dose on a scale for HS. Will re-assess basal dose tomorrow. * Novolog parameters tightened to stress of 2 this morning. PLAN FOR INPATIENT GLYCEMIC CONTROL: * Hold outpatient diabetes medications * Basal insulin * Lantus 10 units SQ last night and this AM * Lantus 0-10 units SQ HS based on BSG * Bolus insulin * NovoLog per scale ACHS or Q6hrs while NPO * Goal Range: Low 110 mg/dL - High 140 mg/dL * Correction Factor: 25 mg/dL/unit * Nutritional / Prandial insulin per carb ratio of 1 unit per 8 grams CHO consumed
[2022-11-05] MEDS: HYDROmorphone INJ 0.5 MG/0.5 ML SYR IV PRN ×2 (15:28→21:28)
--- NOTE | 2022-11-05 16:05 | Hospitalist Progress Note ---
Date of Service November 05, 2022 Assessment & Plan (1) Neurogenic claudication due to lumbar spinal stenosis: Plan: Now s/p lumbar decompression and fusion by Dr. Pate on 11/04 Postoperative management as per orthopedic spine surgeon -Pain control-dc 1 mg dilaudid dose as getting some mild confusion with dilaudid -continue bowel regimen -Continue home pregabalin but reduce dose to 75mg po bid for tomorrow given ANEUDY -PT/OT evaluations appreciated -Follow CBC, BMP again in the morning (2) ANEUDY (acute kidney injury): Plan: Diet Therapist up to 2.41 today from baseline 1.6, with mild/borderline hyperkalemia hold bumex and aldactone low potassium diet ordered received 2 units pRBCs so no need for further IVFs especially with known ischemic CM (3) Afib: Plan: With rapid afib today, 2/2 blood loss anemia most likely transfer to tele for closer monitoring continue COreg holding Eliquis for recent spine surgery (4) Myoclonic jerking: Plan: noted in bilat upper extremities on 11/05 could be 2/2 renal failure, pain meds, ?withdrawal from tramadol? reduce Lyrica dosing asked nurse to give tramadol rather than dilaudid for next pain meds monitor (5) Anemia: Plan: Hemoglobin is mildly low at baseline at 11 and anemia is normocytic Now with acute blood loss anemia, hgb dropped to 8.2, with associated ANEUDY Received 2 units pRBCs on 11/05 Check iron studies, TSH, B12 and folate in the morning Continue home ferrous sulfate -follow CBC in AM Give lasix if develops evidence of volume overload later today (6) Acute blood loss anemia: Plan: as above (7) Hypertension: Plan: Blood pressures are controlled to low normal with blood loss -received Bumex and spironolactone today but will hold for tomorrow due to ANEUDY although may need if becomes more dyspneic due to receiving PRBC transfusion -Continue carvedilol, isosorbide, and hydralazine (8) Diabetes mellitus, type 2: Plan: Pharmacy is managing glycemic control with basal and bolus insulin Hemoglobin A1c 7.2% in 2020 Check hemoglobin A1c -pending (9) CAD (coronary artery disease): Plan: Status post CABG x2 with ischemic CM, last EF 45% Continue aspirin but holding Plavix for now Continue atorvastatin, carvedilol no acute issues but watch for volume overload with receiving 2 units PRBCs today (10) Chronic kidney disease, stage 3: Plan: With ANEUDY on CKD stage III, renal function around baseline with creatinine 1.6 -Avoid nephrotoxins -renally dose meds when appropriate-reduce gabapentin as above -follow BMP (11) BPH (benign prostatic hyperplasia): Plan: No acute issues Continue tamsulosin Monitor for urinary retention Kelly removed-trial of void today (12) Hyperlipidemia: Plan: Continue atorvastatin Plan Disposition-continued stay, hospitalist service will follow along. Transferring to tele-informed Dr. Pate via [place] Text Admission and Anticipated Discharge Date Admission Date: November 04, 2022 Subjective Pt seen during and then after PT. Nursing noted that pt was having some myoclonic jerks of the bilat arms today and pt is also noticing it. Renal function worsened. Was given 2 units PRBCs by Ortho today. Pt reports feeling a little SOB, denies CP. No nausea or abd pain. Review of Systems Review of Systems: All systems reviewed & are unremarkable except as noted in HPI & below Physical Exam Constitutional: WD/WN, vitals as above (awake but somewhat slow to respond to questions) Neck: trachea midline, no thyromegaly Respiratory: normal respiratory effort, lungs clear to auscultation Cardiovascular: Rate/Rhythm: + tachycardic and + irregularly irregular Heart Sounds: no murmur Chest (Breasts): Chest: normal inspection of chest Gastrointestinal (Abdomen): normal bowel sounds, soft, nontender, no hepatosplenomegaly Musculoskeletal: Extremities: extremities normal to inspection; no cyanosis and no clubbing Skin: no rashes, warm and dry Neurologic: moves all extremities and awake; no focal motor deficits Motor/Sensory: + tremor (occasional UE myoclonic jerks) Psychiatric: Orientation: alert, oriented to person, oriented to place, oriented to time and cooperative Lymphatic: no lymphedema Results & Data Results & Data ([facility]) Vital Signs (Past 12 Hours) Vital Signs Temp Pulse Pulse Resp BP BP Pulse Ox 11/05/22 13:25 36.6 C 106 H 18 103/67 96 11/05/22 12:37 36.8 C 105 H 18 101/61 94 11/05/22 10:52 36.8 C 98 H 18 101/61 90 11/05/22 12:30 36.9 C 100 H 18 104/62 95 11/05/22 12:55 36.4 C L 111 H 18 102/69 96 11/05/22 09:52 36.9 C 108 H 18 104/62 95 11/05/22 10:10 11/05/22 09:30 36.8 C 102 H 18 118/62 94 11/05/22 10:30 36.9 C 103 H 18 96/56 L 94 11/05/22 09:07 36.8 C 104 H 18 115/81 96 11/05/22 08:49 36.7 C 111 H 20 97/63 L 95 11/05/22 07:23 37.0 C 91 H 18 107/67 93 O2 Del Method O2 Flow Rate 11/05/22 13:25 11/05/22 12:37 11/05/22 10:52 11/05/22 12:30 Nasal Cannula 2 11/05/22 12:55 11/05/22 09:52 11/05/22 10:10 Nasal Cannula 2 11/05/22 09:30 11/05/22 10:30 11/05/22 09:07 11/05/22 08:49 2 11/05/22 07:23 Nasal Cannula 2 Laboratory Results CBC and BMP reviewed PG Care Time/CCT Total # of Minutes Spent Total Time Spent with Patient: Total time spent is greater than 50% in coordination of care (as documented) at patient's floor/unit and/or counseling patient: Coding Level of Care Code 99732 SUB INP/OBS CARE 3/50MIN Diagnoses Neurogenic claudication due to lumbar spinal stenosis M48.062 ANEUDY (acute kidney injury) N17.9 Afib I48.91 Myoclonic jerking G25.3 Anemia D50.9 Anemia type: iron deficiency Iron deficiency anemia type: unspecified iron deficiency Acute blood loss anemia D62 Hypertension I10 Hypertension type: essential hypertension Diabetes mellitus, type 2 E11.9 CAD (coronary artery disease) I25.119 Associated angina: with unspecified angina Coronary Disease-Associated Artery/Lesion type: [place] artery [place] vs. transplanted heart: [place] heart Chronic kidney disease, stage 3 N18.32 Chronic kidney disease stage 3 subtype: stage 3b (GFR 30-44) BPH (benign prostatic hyperplasia) N40.0 Lower urinary tract symptom presence: symptoms absent Hyperlipidemia E78.5 Hyperlipidemia type: unspecified (1) BPH (benign prostatic hyperplasia) Lower urinary tract symptom presence: symptoms absent Qualified Code(s): N40.0 - Benign prostatic hyperplasia without lower urinary tract symptoms (2) Chronic kidney disease, stage 3 Chronic kidney disease stage 3 subtype: stage 3b (GFR 30-44) Qualified Code(s): N18.32 - Chronic kidney disease, stage 3b (3) CAD (coronary artery disease) Associated angina: with unspecified angina Coronary Disease-Associated [place]/Lesion type: [place] artery [place] vs. transplanted heart: [place] heart Qualified Code(s): I25.119 - Atherosclerotic heart disease of [place] coronary artery with unspecified angina pectoris (4) Anemia Anemia type: iron deficiency Iron deficiency anemia type: unspecified iron deficiency Qualified Code(s): D50.9 - Iron deficiency anemia, unspecified (5) Hyperlipidemia Hyperlipidemia type: unspecified Qualified Code(s): E78.5 - Hyperlipidemia, unspecified (6) Hypertension Hypertension type: essential hypertension Qualified Code(s): I10 - Essential (primary) hypertension
[2022-11-05] MEDS: DOCUSATE SODIUM/SENNA 50/8.6MG TAB PO SCH (21:17)
[2022-11-05] MEDS: TAMSULOSIN HCL 0.4 MG CAP PO SCH (21:18)
[2022-11-05] MEDS: LANTUS PER UNIT CHARGE SQ SCH (21:19)
[2022-11-06] MEDS: POLYETHYLENE (MIRALAX) 17 GM PACK PO SCH ×5 (00:43→20:45)
[2022-11-06] MEDS: oxyCODONE HCL IR 5 MG TAB (IMMEDIATE RELEASE) PO PRN ×2 (02:02→20:48)
[2022-11-06] MEDS: HYDROmorphone INJ 0.5 MG/0.5 ML SYR IV PRN ×2 (04:06→09:08)
[2022-11-06 06:36] LABS: Basophils # (auto) 0.03 K/uL (0-0.2); Basophils % (auto) 0.3 %; Eosinophils # (auto) 0.13 K/uL (0-0.50); Eosinophils % (auto) 1.4 %; Hematocrit (blood only) 25.8 % (42.0-52.0); Hemoglobin 8.7 g/dl (14.0-18.0); Immature Granulocytes # (auto) 0.04 K/uL (0.01-0.20); Immature Granulocytes % (auto) 0.4 %; Lymphocytes % (auto) 8.7 %; Mean Corpuscular Hemoglobin 29.7 pg (25.0-34.0); Mean Corpuscular Hgb Conc 33.7 g/dL (32.0-36.0); Mean Corpuscular Volume 88.1 fL (80.0-100.0); Monocytes # (auto) 1.49 K/uL (0.11-0.59); Monocytes % (auto) 16.2 %; Neutrophils # (auto) 6.71 K/uL (1.40-6.50); Platelet Count 146 K/uL (130-400); RDW Coefficient of Variation 14.4 % (11.5-14.5); RDW Standard Deviation 45.7 fL (36.4-46.3); Red Blood Count 2.93 M/uL (4.70-6.10)
[2022-11-06 06:42] LABS: Albumin Globulin Ratio 1.3 (0.9-2); Albumin Level 3.1 gm/dl (3.4-5.0); Bilirubin,Total 0.6 mg/dl (0.2-1.0); Calcium 7.5 mg/dl (8.5-10.1); Creatinine Clr Calc Pharmacy 30.2 ml/min; Est GFR (African American) 31.4 ml/min; Est GFR (Non-African American) 27.1 ml/min; Globulin 2.3 gm/dl (2.5-4.0); Potassium 4.7 mmol/L (3.5-5.1); Total Protein 5.4 gm/dl (6.0-8.3)
[2022-11-06] MEDS: INSULIN ASPART PER UNIT SC SCH ×4 (08:50→20:32)
[2022-11-06] MEDS ORDERED: LANTUS PER UNIT CHARGE SQ SCH (09:00)
[2022-11-06] MEDS: ISOSORBIDE MONONITRATE 20 MG TAB PO SCH ×3 (09:01→20:44)
[2022-11-06] MEDS: ATORVASTATIN 40 MG TAB PO SCH (09:01)
[2022-11-06] MEDS: PANTOprazole 40 MG TAB PO SCH ×2 (09:01→20:44)
[2022-11-06] MEDS: ASPIRIN 81 MG ECTAB PO SCH (09:01)
[2022-11-06] MEDS: carvediloL 6.25 MG TAB PO SCH ×2 (09:03→20:45)
[2022-11-06] MEDS: CHOLECALCIFEROL 1,000 UNITS 25 MCG TAB PO SCH (09:03)
[2022-11-06] MEDS: hydrALAZINE 10 MG TAB PO SCH ×3 (09:03→20:45)
[2022-11-06] MEDS: FERROUS SULFATE 325 MG TAB PO SCH (09:04)
[2022-11-06] MEDS: PREGABALIN 75 MG CAP PO SCH ×2 (09:07→20:45)
--- NOTE | 2022-11-06 10:17 | Orthopedic Progress Note ---
Date of Service November 06, 2022 Assessment & Plan (1) Neurogenic claudication due to lumbar spinal stenosis: Plan: Mani is postoperative day 2 status post L2-S1 decompression and fusion. We will continue with DVT prophylaxis in the form of teds and SCDs. Continue with aggressive bowel regimen. Continue with pain control. Maintain KYUNG drain. Continue with ambulation physical therapy. He is a good candidate for rehab upon discharge from the hospital. Admission and Anticipated Discharge Date Admission Date: November 04, 2022 Deepak Lara is postoperative day 2 status post L2-S1 decompression and fusion. Last evening he has moved to the telemetry floor. Today he is having increased back pain. He states there is no change in his lower extremity symptoms. KYUNG drain output last shift was 30 cc. Yesterday physical therapy he ambulated roughly 18 feet. He is looking forward to being discharged to rehab. He did receive 2 un its of packed red blood cells yesterday due to low H&H. H&H this morning are 8.7 and 25.2 respectively. He also notes he is really not passing much flatus. No bowel movement yet. Review of Systems Review of Systems: All systems reviewed & are unremarkable except as noted in HPI & below Physical Exam Physical Exam: He is seen in conjunction with occupational therapy He is in moderate distress Alert and oriented x3 Lumbar dressing is clean dry intact and functioning KYUNG drain Calf soft nontender bilaterally Strength intact bilateral lower extremities Results & Data ([facility]) Vital Signs (Past 12 Hours) Vital Signs Temp Pulse Pulse Resp BP Pulse Ox O2 Del Method 11/06/22 07:16 36.9 C 105 H 19 143/76 H 96 Nasal Cannula 11/06/22 03:00 36.7 C 107 H 20 148/75 H 95 Nasal Cannula 11/05/22 23:00 36.9 C 110 H 19 125/68 93 Nasal Cannula O2 Flow Rate 11/06/22 07:16 1.5 11/06/22 03:00 11/05/22 23:00
[2022-11-06] MEDS ORDERED: STAT IV STA (10:40)
[2022-11-06] MEDS ORDERED: CALCIUM GLUCONATE 10% 1,000 MG in DEXTROSE 5% 50 ML IV ONE (11:00)
[2022-11-06] MEDS ORDERED: IRON SUCROSE 300 MG in SODIUM CHLORIDE 0.9% 250 ML IV ONE (11:00)
[2022-11-06] MEDS: CYANOCOBALAMIN 1000 MCG/ML VIAL IM SCH (11:29)
--- NOTE | 2022-11-06 18:26 | Hospitalist Progress Note ---
Date of Service November 06, 2022 Assessment & Plan (1) Neurogenic claudication due to lumbar spinal stenosis: Plan: Now s/p lumbar decompression and fusion by Dr. 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, with mild/borderline hyperkalemia held bumex and aldactone low potassium diet ordered received 2 units pRBCs so no need for further IVFs especially with 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 now 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 down to 2.33 encouraged po intake, continue to hold diuretics (3) Afib: Plan: With rapid afib from acute blood loss anemia/compensatory, improving but rates remain low 100s continue tele monitoring continue COreg at same dose, don't want to blun response to hypovolemia which is now improved holding Eliquis for recent spine surgery, blood loss (4) Urinary retention: Plan: requiring straight cath overnight, still no void all day today and PVR 457mL- advised to place [place] continue home BPH meds TOV in 1 week or sooner if more mobile, less opioid use (5) Myoclonic jerking: Plan: noted in bilat upper extremities on 11/05 could be 2/2 renal failure, pain meds, ?withdrawal from tramadol? reduced Lyrica dosing now resolved (6) Anemia: Plan: Hemoglobin is mildly low at baseline at 11 and anemia is normocytic Now with acute blood loss anemia, hgb dropped to 8.2, with associated ANEUDY Received 2 units pRBCs on 11/05 and now hgb only up to 8.7 but HD stable, mild tachycardia EBL of surgery 950mL Checked iron studies, TSH, B12 and folate -Fe deficient at transferrin sat 9%, B 12 deficient with B12 260. Folate and TSH normal Give IV Venofer x 3 doses Start IM B12 Continue home ferrous sulfate -follow CBC in AM (7) Acute blood loss anemia: Plan: as above (8) Hypertension: Plan: Blood pressures are controlled to low normal with blood loss -continue to hold Bumex and spironolactone due to ANEUDY although may need if becomes more dyspneic due to receiving PRBC transfusion -Continue carvedilol, isosorbide, and hydralazine (9) Diabetes mellitus, type 2: Plan: Pharmacy is managing glycemic control with basal and bolus insulin Hemoglobin A1c 7.2% in 2020 Check hemoglobin A1c -7.0&, well controlled (10) CAD (coronary artery disease): Plan: Status post CABG x2 with ischemic CM, last EF 45% Continue aspirin but holding Plavix for now until ok with Spine Surgery Continue atorvastatin, carvedilol (11) Chronic kidney disease, stage 3: Plan: With ANEUDY on CKD stage III, renal function around baseline with creatinine 1.6 as above, improving ANEUDY -Avoid nephrotoxins -renally dose meds when appropriate-reduce gabapentin as above -follow BMP (12) BPH (benign prostatic hyperplasia): Plan: with retention now as above Continue tamsulosin Monitor for urinary retention repalce Robin (13) Hyperlipidemia: Plan: Continue atorvastatin Plan Disposition-continued stay, hospitalist service will follow along. Admission and Anticipated Discharge Date Admission Date: November 04, 2022 Subjective Feeling better today, less confused. No CP. Remains on 1.5LNC O2 but denies SOB. having some pain in lower back, was OOB with PT Tele with Afib, rates 100-120s with exertion Review of Systems Review of Systems: All systems reviewed & are unremarkable except as noted in HPI & below Physical Exam Constitutional: WD/WN, vitals as above Neck: trachea midline, no thyromegaly Respiratory: normal respiratory effort, lungs clear to auscultation Cardiovascular: Rate/Rhythm: regular rate, + tachycardic (mild) and + irregularly irregular Heart Sounds: no murmur Chest (Breasts): Chest: normal inspection of chest Gastrointestinal (Abdomen): normal bowel sounds, soft, nontender, no hepatosplenomegaly Musculoskeletal: Extremities: extremities normal to inspection; no cyanosis and no clubbing Skin: no rashes, warm and dry Neurologic: moves all extremities and awake; no focal motor deficits Psychiatric: A+Ox3, euthymic affect Orientation: cooperative Lymphatic: no lymphedema Results & Data Results & Data ([facility]) Vital Signs (Past 12 Hours) Vital Signs Temp Pulse Pulse Resp BP Pulse Ox O2 Del Method 11/06/22 16:12 37.3 C 101 H 20 108/65 91 Nasal Cannula 11/06/22 15:00 103 H 11/06/22 11:09 38.2 C H 120 H 22 134/77 95 Nasal Cannula 11/06/22 07:16 36.9 C 105 H 19 143/76 H 96 Nasal Cannula O2 Flow Rate 11/06/22 16:12 1.5 11/06/22 15:00 11/06/22 11:09 1.5 11/06/22 07:16 1.5 Laboratory Results CBC and BMP reviewed PG Care Time/CCT Total # of Minutes Spent Total Time Spent with Patient: Total time spent is greater than 50% in coordination of care (as documented) at patient's floor/unit and/or counseling patient: Coding Level of Care Code 47108 SUB INP/OBS CARE 3/50MIN Diagnoses Neurogenic claudication due to lumbar spinal stenosis M48.062 ANEUDY (acute kidney injury) N17.9 Afib I48.91 Urinary retention R33.9 Myoclonic jerking G25.3 Anemia D50.9 Anemia type: iron deficiency Iron deficiency anemia type: unspecified iron deficiency Acute blood loss anemia D62 Hypertension I10 Hypertension type: essential hypertension Diabetes mellitus, type 2 E11.9 CAD (coronary artery disease) I25.119 Associated angina: with unspecified angina Coronary Disease-Associated Artery/Lesion type: [place] artery [place] vs. transplanted heart: [place] heart Chronic kidney disease, stage 3 N18.32 Chronic kidney disease stage 3 subtype: stage 3b (GFR 30-44) BPH (benign prostatic hyperplasia) N40.0 Lower urinary tract symptom presence: symptoms absent Hyperlipidemia E78.5 Hyperlipidemia type: unspecified (1) BPH (benign prostatic hyperplasia) Lower urinary tract symptom presence: symptoms absent Qualified Code(s): N40.0 - Benign prostatic hyperplasia without lower urinary tract symptoms (2) Chronic kidney disease, stage 3 Chronic kidney disease stage 3 subtype: stage 3b (GFR 30-44) Qualified Code(s): N18.32 - Chronic kidney disease, stage 3b (3) CAD (coronary artery disease) Associated angina: with unspecified angina Coronary Disease-Associated Artery/Lesion type: [place] artery [place] vs. transplanted heart: [place] heart Qualified Code(s): I25.119 - Atherosclerotic heart disease of [place] coronary artery with unspecified angina pectoris (4) Anemia Anemia type: iron deficiency Iron deficiency anemia type: unspecified iron deficiency Qualified Code(s): D50.9 - Iron deficiency anemia, unspecified (5) Hyperlipidemia Hyperlipidemia type: unspecified Qualified Code(s): E78.5 - Hyperlipidemia, unspecified (6) Hypertension Hypertension type: essential hypertension Qualified Code(s): I10 - Essential (primary) hypertension
[2022-11-06] MEDS: DOCUSATE SODIUM/SENNA 50/8.6MG TAB PO SCH (20:44)
[2022-11-06] MEDS: TAMSULOSIN HCL 0.4 MG CAP PO SCH (20:45)
[2022-11-07] MEDS: POLYETHYLENE (MIRALAX) 17 GM PACK PO SCH ×4 (05:46→23:44)
[2022-11-07] MEDS: INSULIN ASPART PER UNIT SC SCH ×4 (09:13→19:48)
[2022-11-07] MEDS: LANTUS PER UNIT CHARGE SQ SCH (09:13)
[2022-11-07] MEDS: CYANOCOBALAMIN 1000 MCG/ML VIAL IM SCH (10:03)
[2022-11-07] MEDS: oxyCODONE HCL IR 5 MG TAB (IMMEDIATE RELEASE) PO PRN ×3 (10:03→20:01)
[2022-11-07] MEDS: ATORVASTATIN 40 MG TAB PO SCH (10:04)
[2022-11-07] MEDS: ASPIRIN 81 MG ECTAB PO SCH (10:04)
[2022-11-07] MEDS: FERROUS SULFATE 325 MG TAB PO SCH (10:04)
[2022-11-07] MEDS: carvediloL 6.25 MG TAB PO SCH ×2 (10:05→19:58)
[2022-11-07] MEDS: ISOSORBIDE MONONITRATE 20 MG TAB PO SCH ×3 (10:05→19:58)
[2022-11-07] MEDS: hydrALAZINE 10 MG TAB PO SCH ×3 (10:05→19:58)
[2022-11-07] MEDS: PANTOprazole 40 MG TAB PO SCH ×2 (10:05→19:59)
[2022-11-07 10:06] LABS: Basophils # (auto) 0.03 K/uL (0-0.2); Basophils % (auto) 0.3 %; Eosinophils # (auto) 0.11 K/uL (0-0.50); Eosinophils % (auto) 1.1 %; Hematocrit (blood only) 25.3 % (42.0-52.0); Hemoglobin 8.5 g/dl (14.0-18.0); Lymphocytes # (auto) 0.61 K/uL (1.2-3.4); Lymphocytes % (auto) 6.2 %; Mean Corpuscular Hemoglobin 29.3 pg (25.0-34.0); Mean Corpuscular Hgb Conc 33.6 g/dL (32.0-36.0); Mean Corpuscular Volume 87.2 fL (80.0-100.0); Monocytes # (auto) 0.77 K/uL (0.11-0.59); Monocytes % (auto) 7.9 %; Neutrophils # (auto) 8.15 K/uL (1.40-6.50); Neutrophils % (auto) 83.5 %; Platelet Count 132 K/uL (130-400); RDW Coefficient of Variation 14.3 % (11.5-14.5); RDW Standard Deviation 46.1 fL (36.4-46.3); White Blood Count 9.77 K/ul (4.8-10.8)
[2022-11-07] MEDS: PREGABALIN 75 MG CAP PO SCH ×2 (10:09→19:59)
[2022-11-07] MEDS: CHOLECALCIFEROL 1,000 UNITS 25 MCG TAB PO SCH (10:09)
[2022-11-07 10:33] LABS: BUN Creatinine Ratio 22.2 (10-20); Calcium 7.8 mg/dl (8.5-10.1); Creatinine Clr Calc Pharmacy 32.6 ml/min; Est GFR (African American) 34.4 ml/min; Est GFR (Non-African American) 29.7 ml/min; Magnesium 2.1 mg/dl (1.7-2.4); Potassium 4.7 mmol/L (3.5-5.1)
--- NOTE | 2022-11-07 10:47 | Pharmacy Report ---
Pharmacy Glycemic Short Note 2 - Date of Service November 07, 2022 - Glycemic Short BSG Results (Last 24 hours): 11/06/22 11/06/22 11/06/22 11:47 16:58 20:05 Glucose POC Glucose 241 H 170 H 144 H 11/07/22 11/07/22 07:52 09:44 Glucose 182 H POC Glucose 162 H OUTPATIENT ANTIDIABETIC REGIMEN: * Lantus 40 units SQ daily * Victoza 1.2 mg SQ QAM * HbA1c = 7% on 11/05/22 ASSESSMENT: 11/07/22: * Patient received total of 41 units of insulin yesterday; 15 units basal + 26 units bolus. * BSGs yesterday were [phone] mg/dl. Novolog parameters were loosened starting with lunch yesterday which seemed to work well. * Fasting BSG = 162 mg/dl. Basal insulin dose increased to 20 units today for better fasting BSG. Novolog parameters tightened with breakfast and loosened for the rest of the day to prevent insulin stacking which would lead to low BSG later in the day. 11/05/22: * 72 y/o M admitted for spinal surgery. Patient with history of Type 2 diabetes managed at home on basal Lantus insulin and Victoza. Will hold Victoza on admission and utilize basal/bolus insulin for glycemic management. * Yesterday, patient received 10 units of basal and 16 units of Novolog insulin. He did get Dexamethasone 4 mg IV x1 during surgery. * BSG trended up to 264 mg/dl last night. Fasting BSG this morning was 172 mg/dl. Additional Lantus 10 units added this morning and continued Lantus dose on a scale for HS. Will re-assess basal dose tomorrow. * Novolog parameters tightened to stress of 2 this morning. PLAN FOR INPATIENT GLYCEMIC CONTROL: * Hold outpatient diabetes medications * Basal insulin * Lantus 20 units SQ QAM * Bolus insulin: CF/CR tightened with breakfast and loosened with lunch, dinner and HS * NovoLog per scale ACHS or Q6hrs while NPO * Goal Range: Low 110 mg/dL - High 140 mg/dL * Correction Factor: 20 mg/dL/unit with breakfast and 25 mg/dl/unit with lunch, dinner and HS * Nutritional / Prandial insulin per carb ratio of 1 unit per 6 grams CHO consumed with breakfast and 1:9 with lunch, dinner and HS
--- NOTE | 2022-11-07 11:20 | Orthopedic Progress Note ---
Date of Service November 07, 2022 Assessment & Plan (1) Neurogenic claudication due to lumbar spinal stenosis: Plan: This time we will continue physical therapy monitor KYUNG output and dissipate anticipate discharge to rehab when cleared by medicine hopefully by Thursday. Admission and Anticipated Discharge Date Admission Date: November 04, 2022 Subjective Back pain controlled leg symptoms improved Physical Exam Physical Exam: Patient is in the chair at the bedside. Is constricted testing. Appears comfortable. Results & Data ([facility]) Vital Signs (Past 12 Hours) Vital Signs Temp Pulse Resp BP Pulse Ox O2 Del Method O2 Flow Rate 11/07/22 08:00 Nasal Cannula 2 11/07/22 08:13 36.6 C 91 H 18 105/61 99 Nasal Cannula 4 11/07/22 03:33 36.4 C L 89 20 113/62 99 Nasal Cannula 4.0 11/06/22 23:59 Nasal Cannula 3
--- NOTE | 2022-11-07 16:18 | Hospitalist Progress Note ---
Date of Service November 07, 2022 Assessment & Plan (1) Neurogenic claudication due to lumbar spinal stenosis: Plan: Now s/p lumbar decompression and fusion by Dr. 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, with mild/borderline hyperkalemia held bumex and aldactone low potassium diet ordered received 2 units pRBCs so no need for further IVFs especially with 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 to improve today down to 2.16 encouraged po intake, continue to hold diuretics Follow BMP in the morning (3) Afib: Plan: With rapid afib and some a flutter from acute blood loss anemia/compensatory Rates are improved today down to 90s-100s continue tele monitoring continue COreg at same dose, don't want to blunt response to hypovolemia which is now improving holding Eliquis for recent spine surgery, blood loss-reached out to orthopedic spine surgeon to see if would be okay to restart this tomorrow (4) Urinary retention: Plan: After Kelly catheter was removed on postop day #1, he was requiring straight caths and a Kelly catheter was replaced on the evening of 11/06 continue home BPH meds TOV in 1 week or sooner if more mobile, less opioid use Will need outpatient follow-up potentially with urology but could do trial of void at rehab (5) Myoclonic jerking: Plan: noted in bilat upper extremities on 11/05 could be 2/2 renal failure, pain meds, ?withdrawal from tramadol? reduced Lyrica dosing now resolved (6) Anemia: Plan: Hemoglobin is mildly low at baseline at 11 and anemia is normocytic Now with acute blood loss anemia, hgb dropped to 8.2, with associated ANEUDY Received 2 units pRBCs on 11/05 and now hgb only up to 8.5 but HD stable, mild tachycardia EBL of surgery 950mL Checked iron studies, TSH, B12 and folate -Fe deficient at transferrin sat 9%, B12 deficient with B12 260. Folate and TSH normal Give IV Venofer x 3 doses-last dose will be on 11/09 Start IM B12 x3 doses and then convert to p.o. B12 Continue home ferrous sulfate 325 Mg p.o. once daily -follow CBC in AM (7) Acute blood loss anemia: Plan: as above (8) Hypertension: Plan: Blood pressures are controlled to low normal with blood loss -continue to hold Bumex and spironolactone due to ANEUDY although may need if becomes more dyspneic due to receiving PRBC transfusion -Continue carvedilol, isosorbide, and hydralazine (9) Diabetes mellitus, type 2: Plan: Pharmacy is managing glycemic control with basal and bolus insulin Hemoglobin A1c 7.2% in 2020 Check hemoglobin A1c -7.0&, well controlled (10) CAD (coronary artery disease): Plan: Status post CABG x2 with ischemic CM, last EF 45% Continue aspirin but holding Plavix for now until ok with Spine Surgery Continue atorvastatin, carvedilol (11) Chronic kidney disease, stage 3: Plan: With ANEUDY on CKD stage III, renal function around baseline with creatinine 1.6 as above, improving ANEUDY -Avoid nephrotoxins -renally dose meds when appropriate-reduced Lyrica dose as above -follow BMP (12) BPH (benign prostatic hyperplasia): Plan: with retention now as above Continue tamsulosin replaced Kelly (13) Hyperlipidemia: Plan: Continue atorvastatin Plan Disposition-continued stay on telemetry unit, hospitalist service will follow along. Will need rehab when medically stable-likely on Thursday Admission and Anticipated Discharge Date Admission Date: November 04, 2022 Subjective Patient reports having a better day today. Still some pain in the back but overall with better control. He was out of bed and walking around the room and then sat in the chair for 3 hours. He does not feel confused today. Review of Systems Review of Systems: All systems reviewed & are unremarkable except as noted in HPI & below Physical Exam Constitutional: WD/WN, vitals as above Neck: trachea midline, no thyromegaly Respiratory: normal respiratory effort, lungs clear to auscultation Cardiovascular: Rate/Rhythm: regular rate, + tachycardic (mild) and + irregularly irregular Heart Sounds: no murmur Chest (Breasts): Chest: normal inspection of chest Gastrointestinal (Abdomen): normal bowel sounds, soft, nontender, no hepatosplenomegaly Musculoskeletal: Extremities: extremities normal to inspection; no cyanosis and no clubbing Skin: no rashes, warm and dry Neurologic: moves all extremities and awake; no focal motor deficits Psychiatric: A+Ox3, euthymic affect Orientation: cooperative Lymphatic: no lymphedema Results & Data Results & Data ([facility]) Vital Signs (Past 12 Hours) Vital Signs Temp Pulse Resp BP Pulse Ox O2 Del Method O2 Flow Rate 11/07/22 16:00 36.6 C 105 H 18 90/42 L 97 Nasal Cannula 2 11/07/22 12:28 37.0 C 98 H 18 103/65 98 Nasal Cannula 2 11/07/22 08:00 Nasal Cannula 2 11/07/22 08:13 36.6 C 91 H 18 105/61 99 Nasal Cannula 4 Laboratory Results CBC, BMP, and magnesium level reviewed PG Care Time/CCT Total # of Minutes Spent Total Time Spent with Patient: Total time spent is greater than 50% in coordination of care (as documented) at patient's floor/unit and/or counseling patient: Coding Level of Care Code 65482 SUB INP/OBS CARE 3/50MIN Diagnoses Neurogenic claudication due to lumbar spinal stenosis M48.062 ANEUDY (acute kidney injury) N17.9 Afib I48.91 Urinary retention R33.9 Myoclonic jerking G25.3 Anemia D50.9 Anemia type: iron deficiency Iron deficiency anemia type: unspecified iron deficiency Acute blood loss anemia D62 Hypertension I10 Hypertension type: essential hypertension Diabetes mellitus, type 2 E11.9 CAD (coronary artery disease) I25.119 Associated angina: with unspecified angina Coronary Disease-Associated Artery/Lesion type: [place] artery [place] vs. transplanted heart: [place] heart Chronic kidney disease, stage 3 N18.32 Chronic kidney disease stage 3 subtype: stage 3b (GFR 30-44) BPH (benign prostatic hyperplasia) N40.0 Lower urinary tract symptom presence: symptoms absent Hyperlipidemia E78.5 Hyperlipidemia type: unspecified (1) BPH (benign prostatic hyperplasia) Lower urinary tract symptom presence: symptoms absent Qualified Code(s): N40.0 - Benign prostatic hyperplasia without lower urinary tract symptoms (2) Chronic kidney disease, stage 3 Chronic kidney disease stage 3 subtype: stage 3b (GFR 30-44) Qualified Code(s): N18.32 - Chronic kidney disease, stage 3b (3) CAD (coronary artery disease) Associated angina: with unspecified angina Coronary Disease-Associated Artery/Lesion type: [place] artery [place] vs. transplanted heart: [place] heart Qualified Code(s): I25.119 - Atherosclerotic heart disease of [place] coronary artery with unspecified angina pectoris (4) Anemia Anemia type: iron deficiency Iron deficiency anemia type: unspecified iron deficiency Qualified Code(s): D50.9 - Iron deficiency anemia, unspecified (5) Hyperlipidemia Hyperlipidemia type: unspecified Qualified Code(s): E78.5 - Hyperlipidemia, unspecified (6) Hypertension Hypertension type: essential hypertension Qualified Code(s): I10 - Essential (primary) hypertension
[2022-11-07] MEDS: DOCUSATE SODIUM/SENNA 50/8.6MG TAB PO SCH (19:58)
[2022-11-07] MEDS: TAMSULOSIN HCL 0.4 MG CAP PO SCH (19:59)
[2022-11-07] MEDS: traMADol HCL 50 MG TABLET PO PRN (22:27)
[2022-11-07] MEDS: HYDROmorphone INJ 0.5 MG/0.5 ML SYR IV PRN (22:27)
[2022-11-08] MEDS: oxyCODONE HCL IR 5 MG TAB (IMMEDIATE RELEASE) PO PRN ×3 (02:00→21:38)
[2022-11-08] MEDS: HYDROmorphone INJ 0.5 MG/0.5 ML SYR IV PRN ×3 (02:01→21:43)
[2022-11-08] MEDS: POLYETHYLENE (MIRALAX) 17 GM PACK PO SCH ×4 (05:21→21:38)
[2022-11-08] MEDS: traMADol HCL 50 MG TABLET PO PRN ×2 (05:51→23:26)
[2022-11-08] MEDS: INSULIN ASPART PER UNIT SC SCH ×4 (09:29→21:12)
[2022-11-08] MEDS: LANTUS PER UNIT CHARGE SQ SCH (09:29)
[2022-11-08] MEDS: ISOSORBIDE MONONITRATE 20 MG TAB PO SCH ×3 (09:31→21:41)
[2022-11-08] MEDS: CHOLECALCIFEROL 1,000 UNITS 25 MCG TAB PO SCH (09:32)
[2022-11-08] MEDS: hydrALAZINE 10 MG TAB PO SCH ×3 (09:32→21:41)
[2022-11-08] MEDS: PANTOprazole 40 MG TAB PO SCH ×2 (09:32→21:42)
[2022-11-08] MEDS: ATORVASTATIN 40 MG TAB PO SCH (09:33)
[2022-11-08] MEDS: carvediloL 6.25 MG TAB PO SCH ×2 (09:33→21:41)
[2022-11-08] MEDS: ASPIRIN 81 MG ECTAB PO SCH (09:33)
[2022-11-08] MEDS: CYANOCOBALAMIN 1000 MCG/ML VIAL IM SCH (09:33)
[2022-11-08] MEDS: PREGABALIN 75 MG CAP PO SCH ×2 (09:37→21:38)
[2022-11-08] MEDS: IRON SUCROSE 300 MG in SODIUM CHLORIDE 0.9% 250 ML IV SCH (09:38)
[2022-11-08] MEDS: FEXOFENADINE HCL 180 MG TAB PO SCH (10:48)
[2022-11-08] MEDS: FERROUS SULFATE 325 MG TAB PO SCH (10:48)
[2022-11-08 10:55] LABS: Basophils # (auto) 0.03 K/uL (0-0.2); Basophils % (auto) 0.3 %; Calcium 7.8 mg/dl (8.5-10.1); Creatinine Clr Calc Pharmacy 36.8 ml/min; Eosinophils # (auto) 0.58 K/uL (0-0.50); Eosinophils % (auto) 6.3 %; Est GFR (African American) 38.7 ml/min; Est GFR (Non-African American) 33.4 ml/min; Hematocrit (blood only) 25.1 % (42.0-52.0); Hemoglobin 8.3 g/dl (14.0-18.0); Immature Granulocytes # (auto) 0.04 K/uL (0.01-0.20); Immature Granulocytes % (auto) 0.4 %; Lymphocytes # (auto) 0.72 K/uL (1.2-3.4); Lymphocytes % (auto) 7.8 %; Magnesium 2.2 mg/dl (1.7-2.4); Mean Corpuscular Hemoglobin 29.5 pg (25.0-34.0); Mean Corpuscular Hgb Conc 33.1 g/dL (32.0-36.0); Mean Corpuscular Volume 89.3 fL (80.0-100.0); Mean Platelet Volume 11.1 fL (9.4-12.4); Monocytes # (auto) 0.71 K/uL (0.11-0.59); Monocytes % (auto) 7.7 %; Neutrophils # (auto) 7.12 K/uL (1.40-6.50); Neutrophils % (auto) 77.5 %; Platelet Count 180 K/uL (130-400); Potassium 4.2 mmol/L (3.5-5.1); RDW Coefficient of Variation 14.2 % (11.5-14.5); RDW Standard Deviation 46.3 fL (36.4-46.3); Red Blood Count 2.81 M/uL (4.70-6.10)
--- NOTE | 2022-11-08 11:34 | Orthopedic Progress Note ---
Date of Service November 08, 2022 Assessment & Plan (1) Neurogenic claudication due to lumbar spinal stenosis: Plan: This time we will continue physical therapy monitor his KYUNG output anticipate discharge to rehab Thursday. Admission and Anticipated Discharge Date Admission Date: November 04, 2022 Subjective Patient's back pain is improving. Leg pain improved. Physical Exam Physical Exam: Patient is sent to the bedside. Is good strength testing. Appears comfortable. Results & Data ([facility]) Vital Signs (Past 12 Hours) Vital Signs Temp Pulse Pulse Resp BP BP Pulse Ox 11/08/22 08:31 36.5 C 74 19 122/81 99 11/08/22 07:53 90 11/08/22 07:53 11/08/22 04:04 36.6 C 82 18 108/64 96 11/07/22 23:39 36.6 C 96 H 18 119/78 98 O2 Del Method O2 Flow Rate 11/08/22 08:31 Nasal Cannula 2 11/08/22 07:53 11/08/22 07:53 Nasal Cannula 2 11/08/22 04:04 Nasal Cannula 2.0 11/07/22 23:39 Nasal Cannula 2.0
--- NOTE | 2022-11-08 12:37 | Hospitalist Progress Note ---
Date of Service November 08, 2022 Assessment & Plan (1) Neurogenic claudication due to lumbar spinal stenosis: Plan: Now s/p lumbar decompression and fusion by Dr. Pate on 2 Postoperative management as per orthopedic spine surgeon EBL 950mL Required 2 units PRBCs on POD#1 for hemoglobin drop from preoperative 11.2 down to 8.2 and with tachycardia and acute kidney injury Hemoglobin now stable for several days at 8.3 remains mildly tachycardic from previous blood loss and also with atrial fibrillation and flutter but overall improving -Pain control-was with some mild confusion with dilaudid higher doses, now improved with using mostly oxycodone as needed for pain -continue bowel regimen-no bowel movement yet-give bisacodyl OR x1 today -Continue home pregabalin but reduced dose to 75mg po bid for given ANEUDY -PT/OT evaluations appreciated -Follow CBC, BMP again in the morning (2) ANEUDY (acute kidney injury): 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.6, with mild/borderline hyperkalemia held bumex and aldactone low potassium diet ordered received 2 units pRBCs so no need for further IVFs especially with known ischemic CM pulverizer continues to improve today down to 1.9 encouraged po intake, continue to hold diuretics, however reports that spironolactone was recently discontinued as an outpatient due to hyperkalemia- remove this from medication reconciliation home list -Continue to hold bumetanide but may restart tomorrow Follow BMP in the morning (3) Afib: Plan: With rapid afib and some a flutter from acute blood loss anemia/compensatory Rates are improved today down to 90s-100s continue tele monitoring continue COreg at same dose, don't want to blunt response to hypovolemia which is now improving holding Eliquis for recent spine surgery, blood loss -reached out to orthopedic spine surgeon to see when safe to restart-he says okay to restart Plavix but will hold off on Eliquis for at least 2 more days- around 11/10 (4) Urinary retention: Plan: After Kelly catheter was removed on postop day #1, he was requiring straight caths and a Kelly catheter was replaced on the evening of 11/06 continue home BPH meds TOV in 1 week or sooner if more mobile, less opioid use Will need outpatient follow-up potentially with urology but could do trial of void at rehab (5) Myoclonic jerking: Plan: noted in bilat upper extremities on 11/05 could be 2/2 renal failure, pain meds, ?withdrawal from tramadol? reduced Lyrica dosing now resolved (6) Anemia: Plan: Hemoglobin is mildly low at baseline at 11 and anemia is normocytic Now with acute blood loss anemia, hgb dropped to 8.2, with associated ANEUDY Received 2 units pRBCs on 11/05 and now hgb only up to 8.5 but HD stable, mild tachycardia EBL of surgery 950mL Checked iron studies, TSH, B12 and folate -Fe deficient at transferrin sat 9%, B12 deficient with B12 260. Folate and TSH normal Give IV Venofer x 3 doses-last dose will be on 11/09 Start IM B12 x3 doses and then convert to p.o. B12 tomorrow Continue home ferrous sulfate 325 Mg p.o. once daily -follow CBC in AM (7) Acute blood loss anemia: Plan: as above (8) Hypertension: Plan: Blood pressures are controlled to low normal with blood loss -restart Bumex tomorrow -Continue carvedilol, isosorbide, and hydralazine (9) Diabetes mellitus, type 2: Plan: Pharmacy is managing glycemic control with basal and bolus insulin Hemoglobin A1c 7.2% in 2020 Check hemoglobin A1c -7.0&, well controlled (10) CAD (coronary artery disease): Plan: Status post CABG x2 with ischemic CM, last EF 45% Continue aspirin and now restart Plavix tomorrow Continue atorvastatin, carvedilol (11) Chronic kidney disease, stage 3: Plan: With ANEUDY on CKD stage III, renal function around baseline with creatinine 1.6 as above, improving ANEUDY -Avoid nephrotoxins -renally dose meds when appropriate-reduced Lyrica dose as above -follow BMP (12) BPH (benign prostatic hyperplasia): Plan: with retention now as above Continue tamsulosin replaced Kelly Trial of void in 1 week (13) Hyperlipidemia: Plan: Continue atorvastatin Plan Disposition-continued stay on telemetry unit, hospitalist service will follow along. Will need rehab when medically stable-likely on Thursday Discussed care with on the phone on 11/08 Admission and Anticipated Discharge Date Admission Date: November 04, 2022 Subjective Patient reports feeling okay today. Pain is improving. Denies any chest pains or shortness of breath. No nausea or abdominal pains. No bowel movement yet. Telemetry with atrial flutter with rates in the 80s to 100s He is complaining of itching around the site of the tape over his surgical site. I discussed his care with his and she reports that he was taken off of the spironolactone recently as an outpatient for hyperkalemia. I removed it from the home medication reconciliation. Review of Systems Review of Systems: All systems reviewed & are unremarkable except as noted in HPI & below Physical Exam 2 Constitutional: WD/WN, vitals as above Neck: trachea midline, no thyromegaly Respiratory: normal respiratory effort, lungs clear to auscultation Cardiovascular: Rate/Rhythm: regular rate and + irregularly irregular Heart Sounds: no murmur Chest (Breasts): Chest: normal inspection of chest Gastrointestinal (Abdomen): normal bowel sounds, soft, nontender, no hepatosplenomegaly Musculoskeletal: Extremities: extremities normal to inspection; no cyanosis and no clubbing Skin: no rashes, warm and dry No erythema or hives around site of tape on back Neurologic: moves all extremities and awake; no focal motor deficits Psychiatric: A+Ox3, euthymic affect Orientation: alert, oriented to person, oriented to place, oriented to time and cooperative Lymphatic: no lymphedema Results & Data Results & Data ([facility]) Vital Signs (Past 12 Hours) Vital Signs Temp Pulse Pulse Resp BP BP Pulse Ox 11/08/22 12:08 36.6 C 82 19 110/64 97 11/08/22 08:31 36.5 C 74 19 122/81 99 11/08/22 07:53 90 11/08/22 07:53 11/08/22 04:04 36.6 C 82 18 108/64 96 O2 Del Method O2 Flow Rate 11/08/22 12:08 Nasal Cannula 2 11/08/22 08:31 Nasal Cannula 2 11/08/22 07:53 11/08/22 07:53 Nasal Cannula 2 11/08/22 04:04 Nasal Cannula 2.0 Laboratory Results BMP and CBC reviewed PG Care Time/CCT Total # of Minutes Spent Total Time Spent with Patient: Total time spent is greater than 50% in coordination of care (as documented) at patient's floor/unit and/or counseling patient: Coding Level of Care Code 25722 SUB INP/OBS CARE MIN Diagnoses Neurogenic claudication due to lumbar spinal stenosis M48.062 ANEUDY (acute kidney injury) N17.9 Afib I48.91 Urinary retention R33.9 Myoclonic jerking G25.3 Anemia D50.9 Anemia type: iron deficiency Iron deficiency anemia type: unspecified iron deficiency Acute blood loss anemia D62 Hypertension I10 Hypertension type: essential hypertension Diabetes mellitus, type 2 E11.9 CAD (coronary artery disease) I25.119 Associated angina: with unspecified angina Coronary Disease-Associated Artery/Lesion type: [place] artery [place] vs. transplanted heart: [place] heart Chronic kidney disease, stage 3 N18.32 Chronic kidney disease stage 3 subtype: stage 3b (GFR 30-44) BPH (benign prostatic hyperplasia) N40.0 Lower urinary tract symptom presence: symptoms absent Hyperlipidemia E78.5 Hyperlipidemia type: unspecified (1) BPH (benign prostatic hyperplasia) Lower urinary tract symptom presence: symptoms absent Qualified Code(s): N40.0 - Benign prostatic hyperplasia without lower urinary tract symptoms (2) Chronic kidney disease, stage 3 Chronic kidney disease stage 3 subtype: stage 3b (GFR 30-44) Qualified Code(s): N18.32 - Chronic kidney disease, stage 3b (3) CAD (coronary artery disease) Associated angina: with unspecified angina Coronary Disease-Associated Artery/Lesion type: [place] artery [place] vs. transplanted heart: [place] heart Qualified Code(s): I25.119 - Atherosclerotic heart disease of [place] coronary artery with unspecified angina pectoris (4) Anemia Anemia type: iron deficiency Iron deficiency anemia type: unspecified iron deficiency Qualified Code(s): D50.9 - Iron deficiency anemia, unspecified (5) Hyperlipidemia Hyperlipidemia type: unspecified Qualified Code(s): E78.5 - Hyperlipidemia, unspecified (6) Hypertension Hypertension type: essential hypertension Qualified Code(s): I10 - Essential (primary) hypertension
[2022-11-08] MEDS: DOCUSATE SODIUM/SENNA 50/8.6MG TAB PO SCH (21:37)
[2022-11-08] MEDS: TAMSULOSIN HCL 0.4 MG CAP PO SCH (21:41)
[2022-11-09] MEDS: oxyCODONE HCL IR 5 MG TAB (IMMEDIATE RELEASE) PO PRN ×4 (00:48→18:10)
[2022-11-09] MEDS: POLYETHYLENE (MIRALAX) 17 GM PACK PO SCH ×3 (05:16→18:05)
[2022-11-09 06:14] LABS: Basophils # (auto) 0.04 K/uL (0-0.2); Basophils % (auto) 0.5 %; Eosinophils % (auto) 7.7 %; Hematocrit (blood only) 24.7 % (42.0-52.0); Hemoglobin 8.2 g/dl (14.0-18.0); Immature Granulocytes # (auto) 0.04 K/uL (0.01-0.20); Immature Granulocytes % (auto) 0.5 %; Lymphocytes # (auto) 0.55 K/uL (1.2-3.4); Lymphocytes % (auto) 7.1 %; Mean Corpuscular Hgb Conc 33.2 g/dL (32.0-36.0); Mean Corpuscular Volume 87.3 fL (80.0-100.0); Mean Platelet Volume 10.6 fL (9.4-12.4); Monocytes # (auto) 0.89 K/uL (0.11-0.59); Monocytes % (auto) 11.5 %; Neutrophils # (auto) 5.63 K/uL (1.40-6.50); Neutrophils % (auto) 72.7 %; Platelet Count 182 K/uL (130-400); RDW Standard Deviation 44.7 fL (36.4-46.3); Red Blood Count 2.83 M/uL (4.70-6.10); White Blood Count 7.75 K/ul (4.8-10.8)
[2022-11-09 06:27] LABS: BUN Creatinine Ratio 25.6 (10-20); Calcium 7.7 mg/dl (8.5-10.1); Est GFR (African American) 44.1 ml/min; Est GFR (Non-African American) 38.1 ml/min; Magnesium 2.2 mg/dl (1.7-2.4); Potassium 4.5 mmol/L (3.5-5.1)
[2022-11-09] MEDS: INSULIN ASPART PER UNIT SC SCH ×4 (09:03→21:16)
[2022-11-09] MEDS: LANTUS PER UNIT CHARGE SQ SCH (09:04)
[2022-11-09] MEDS: IRON SUCROSE 300 MG in SODIUM CHLORIDE 0.9% 250 ML IV SCH (09:04)
[2022-11-09] MEDS: PREGABALIN 75 MG CAP PO SCH ×2 (09:04→21:19)
[2022-11-09] MEDS: ASPIRIN 81 MG ECTAB PO SCH (09:05)
[2022-11-09] MEDS: FERROUS SULFATE 325 MG TAB PO SCH (09:05)
[2022-11-09] MEDS: CHOLECALCIFEROL 1,000 UNITS 25 MCG TAB PO SCH (09:05)
[2022-11-09] MEDS: ATORVASTATIN 40 MG TAB PO SCH (09:05)
[2022-11-09] MEDS: PANTOprazole 40 MG TAB PO SCH ×2 (09:05→21:21)
[2022-11-09] MEDS: FEXOFENADINE HCL 180 MG TAB PO SCH (09:05)
[2022-11-09] MEDS: ISOSORBIDE MONONITRATE 20 MG TAB PO SCH ×3 (09:05→21:24)
[2022-11-09] MEDS: CLOPIDOGREL BISULFATE 75 MG TAB PO SCH (09:06)
[2022-11-09] MEDS: carvediloL 6.25 MG TAB PO SCH (09:06)
[2022-11-09] MEDS: hydrALAZINE 10 MG TAB PO SCH ×3 (09:06→21:21)
[2022-11-09] MEDS: BUMETANIDE 1 MG TAB PO SCH (09:07)
[2022-11-09] MEDS: CYANOCOBALAMIN (B-12) 500 MCG TABLET PO SCH (09:09)
[2022-11-09] MEDS: carvediloL 3.125 MG TAB PO SCH ×2 (09:44→21:20)
--- NOTE | 2022-11-09 10:58 | Orthopedic Progress Note ---
Date of Service November 09, 2022 Assessment & Plan (1) Neurogenic claudication due to lumbar spinal stenosis: Plan: At this time we will continue physical therapy discontinue his drain today hopefully discharge to rehab tomorrow. Admission and Anticipated Discharge Date Admission Date: November 04, 2022 Subjective Patient is in the chair at the bedside. His pain is controlled. Physical Exam Physical Exam: On exam is good strength testing. Appears comfortable. Results & Data ([facility]) Vital Signs (Past 12 Hours) Vital Signs Temp Pulse Pulse Resp BP BP Pulse Ox 11/09/22 08:14 36.8 C 118 H 18 123/64 95 11/09/22 04:10 36.5 C 101 H 20 112/72 93 11/08/22 23:19 36.9 C 110 H 18 128/67 95 O2 Del Method 11/09/22 08:14 Room Air 11/09/22 04:10 Room Air 11/08/22 23:19 Room Air
[2022-11-09] MEDS ORDERED: carvediloL 3.125 MG TAB PO ONE (11:09)
[2022-11-09] MEDS ORDERED: bisacodyL 5 MG TABEC PO ONE (11:12)
--- NOTE | 2022-11-09 11:19 | Hospitalist Progress Note ---
Date of Service November 09, 2022 Assessment & Plan (1) Neurogenic claudication due to lumbar spinal stenosis: Plan: Now s/p lumbar decompression and fusion by Dr. Pate on 2 Postoperative management as per orthopedic spine surgeon EBL 950mL Required 2 units PRBCs on POD#1 for hemoglobin drop from preoperative 11.2 down to 8.2 and with tachycardia and acute kidney injury Hemoglobin now stable for several days at 8.2-8.3 KYUNG drain removed on 11/09 remains mildly tachycardic from previous blood loss and also with atrial fibrillation and flutter, BPs are improved -Pain control-was with some mild confusion with dilaudid higher doses, now improved with using mostly oxycodone as needed for pain -continue bowel regimen-still no bowel movement yet despite Miralax qid, Bisacodyl MS,senna/docusate 2 tabs hs----> give bisacodyl 5mg po x 1 today, consider enema -Continue home pregabalin but reduced dose to 75mg po bid for given ANEUDY -PT/OT evaluations appreciated -Follow CBC, BMP again in the morning (2) ANEUDY (acute kidney injury): 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, with mild/borderline hyperkalemia held bumex and aldactone low potassium diet ordered received 2 units pRBCs so no need for further IVFs especially with known ischemic CM carton filler continues to improve today down to 1.7 encouraged po intake, continue to hold diuretics, however reports that spironolactone was recently discontinued as an outpatient due to hyperkalemia- remove this from medication reconciliation home list -restarted home bumetanide on 11/09 Follow BMP in the morning (3) Afib: Plan: With rapid afib and some a flutter from acute blood loss anemia/compensatory Rates were improved but now back up to 10-110s, BPs improved from low normal to normal continue tele monitoring -increase Coreg to 9.375mg po bid holding Eliquis for recent spine surgery, blood loss-plan to restart on 11/10 as per my d/w Ortho Spine -okay to restart Plavix on 11/09 (4) Urinary retention: Plan: After Kelly catheter was removed on postop day #1, he was requiring straight caths and a Kelly catheter was replaced on the evening of 11/06 continue home BPH meds TOV in 1 week or sooner if more mobile, less opioid use Will need outpatient follow-up potentially with urology but could do trial of void at rehab (5) Anemia: Plan: Hemoglobin is mildly low at baseline at 11 and anemia is normocytic Now with acute blood loss anemia, hgb dropped to 8.2, with associated ANEUDY Received 2 units pRBCs on 11/05 and now hgb only up to 8.5 but HD stable, mild tachycardia EBL of surgery 950mL Checked iron studies, TSH, B12 and folate -Fe deficient at transferrin sat 9%, B12 deficient with B12 260. Folate and TSH normal Give IV Venofer x 3 doses-last dose will be on 11/09 Start IM B12 x3 doses and then convert to p.o. B12 tomorrow Continue home ferrous sulfate 325 Mg p.o. once daily -follow CBC in AM (6) Acute blood loss anemia: Plan: as above (7) Myoclonic jerking: Plan: noted in bilat upper extremities on 11/05 could be 2/2 renal failure, pain meds, ?withdrawal from tramadol? reduced Lyrica dosing now resolved (8) Hypertension: Plan: Blood pressures are controlled to low normal with blood loss -restarted Bumex -Continue carvedilol, isosorbide, and hydralazine (9) Diabetes mellitus, type 2: Plan: Pharmacy is managing glycemic control with basal and bolus insulin Hemoglobin A1c 7.2% in 2020 Check hemoglobin A1c -7.0&, well controlled (10) CAD (coronary artery disease): Plan: Status post CABG x2 with ischemic CM, chronic systolic CHF with last EF 45% Continue aspirin and restarted Plavix Continue atorvastatin, carvedilol (11) Chronic kidney disease, stage 3: Plan: With ANEUDY on CKD stage III, renal function around baseline with creatinine 1.6 as above, improving ANEUDY -Avoid nephrotoxins -renally dose meds when appropriate-reduced Lyrica dose as above -follow BMP (12) BPH (benign prostatic hyperplasia): Plan: with retention as above Continue tamsulosin replaced Kelly Trial of void in 1 week-around 11/14 (13) Hyperlipidemia: Plan: Continue atorvastatin (14) Itching: Plan: 2/2 dressing/tape on back surgical site no rash suleiman not helping asked RN to change type of tape Plan Disposition-continued stay on telemetry unit, hospitalist service will follow along. Improving daily. Plan for rehab placement at [facility] on Thursday Discussed care with on the phone on 11/08 Admission and Anticipated Discharge Date Admission Date: November 04, 2022 Subjective Still having itching in back around site of dressing, no rash. No other concerns. Is working with PT. Still no BM Tele with Aflutter, rates 100-110s Discussed his care with Dr. Pate of Spine Surgery Review of Systems Review of Systems: All systems reviewed & are unremarkable except as noted in HPI & below Physical Exam Constitutional: WD/WN, vitals as above Neck: trachea midline, no thyromegaly Respiratory: normal respiratory effort, lungs clear to auscultation Cardiovascular: Rate/Rhythm: + tachycardic (mild) and + irregularly irregular Heart Sounds: no murmur Gastrointestinal (Abdomen): normal bowel sounds, soft, nontender, no hepatosplenomegaly Musculoskeletal: Extremities: extremities normal to inspection; no cyanosis and no clubbing Skin: no rashes, warm and dry Neurologic: moves all extremities and awake; no focal motor deficits Psychiatric: A+Ox3, euthymic affect Orientation: cooperative Lymphatic: no lymphedema Results & Data Results & Data ([facility]) Vital Signs (Past 12 Hours) Vital Signs Temp Pulse Pulse Resp BP BP Pulse Ox 11/09/22 08:14 36.8 C 118 H 18 123/64 95 11/09/22 04:10 36.5 C 101 H 20 112/72 93 11/08/22 23:19 36.9 C 110 H 18 128/67 95 O2 Del Method 11/09/22 08:14 Room Air 11/09/22 04:10 Room Air 11/08/22 23:19 Room Air PG Care Time/CCT Total # of Minutes Spent Total Time Spent with Patient: Total time spent is greater than 50% in coordination of care (as documented) at patient's floor/unit and/or counseling patient: Coding Level of Care Code 42746 SUB INP/OBS CARE 235MIN Diagnoses Neurogenic claudication due to lumbar spinal stenosis M48.062 ANEUDY (acute kidney injury) N17.9 Afib I48.91 Urinary retention R33.9 Anemia D50.9 Anemia type: iron deficiency Iron deficiency anemia type: unspecified iron deficiency Acute blood loss anemia D62 Myoclonic jerking G25.3 Hypertension I10 Hypertension type: essential hypertension Diabetes mellitus, type 2 E11.9 CAD (coronary artery disease) I25.119 Coronary Disease-Associated Artery/Lesion type: [place] artery [place] vs. transplanted heart: [place] heart Associated angina: with unspecified angina Chronic kidney disease, stage 3 N18.32 Chronic kidney disease stage 3 subtype: stage 3b (GFR 30-44) BPH (benign prostatic hyperplasia) N40.0 Lower urinary tract symptom presence: symptoms absent Hyperlipidemia E78.5 Hyperlipidemia type: unspecified Itching L29.9 (1) Anemia Anemia type: iron deficiency Iron deficiency anemia type: unspecified iron deficiency Qualified Code(s): D50.9 - Iron deficiency anemia, unspecified (2) Hypertension Hypertension type: essential hypertension Qualified Code(s): I10 - Essential (primary) hypertension (3) CAD (coronary artery disease) Coronary Disease-Associated Artery/Lesion type: [place] artery [place] vs. transplanted heart: [place] heart Associated angina: with unspecified angina Qualified Code(s): I25.119 - Atherosclerotic heart disease of [place] coronary artery with unspecified angina pectoris (4) Chronic kidney disease, stage 3 Chronic kidney disease stage 3 subtype: stage 3b (GFR 30-44) Qualified Code(s): N18.32 - Chronic kidney disease, stage 3b (5) BPH (benign prostatic hyperplasia) Lower urinary tract symptom presence: symptoms absent Qualified Code(s): N40.0 - Benign prostatic hyperplasia without lower urinary tract symptoms (6) Hyperlipidemia Hyperlipidemia type: unspecified Qualified Code(s): E78.5 - Hyperlipidemia, unspecified
[2022-11-09] MEDS: TAMSULOSIN HCL 0.4 MG CAP PO SCH (21:21)
[2022-11-09] MEDS: HYDROmorphone INJ 0.5 MG/0.5 ML SYR IV PRN (21:26)
[2022-11-09] MEDS: DOCUSATE SODIUM/SENNA 50/8.6MG TAB PO SCH (21:30)
[2022-11-10] MEDS: POLYETHYLENE (MIRALAX) 17 GM PACK PO SCH ×3 (00:09→12:15)
[2022-11-10] MEDS: oxyCODONE HCL IR 5 MG TAB (IMMEDIATE RELEASE) PO PRN ×3 (01:13→12:15)
[2022-11-10 06:28] LABS: Basophils # (auto) 0.06 K/uL (0-0.2); Basophils % (auto) 0.7 %; Eosinophils # (auto) 0.56 K/uL (0-0.50); Eosinophils % (auto) 6.7 %; Hematocrit (blood only) 26.4 % (42.0-52.0); Hemoglobin 8.8 g/dl (14.0-18.0); Immature Granulocytes # (auto) 0.03 K/uL (0.01-0.20); Immature Granulocytes % (auto) 0.4 %; Lymphocytes # (auto) 0.74 K/uL (1.2-3.4); Lymphocytes % (auto) 8.9 %; Mean Corpuscular Hemoglobin 28.9 pg (25.0-34.0); Mean Corpuscular Hgb Conc 33.3 g/dL (32.0-36.0); Mean Corpuscular Volume 86.8 fL (80.0-100.0); Mean Platelet Volume 10.7 fL (9.4-12.4); Monocytes # (auto) 1.03 K/uL (0.11-0.59); Monocytes % (auto) 12.3 %; Neutrophils # (auto) 5.94 K/uL (1.40-6.50); Platelet Count 217 K/uL (130-400); RDW Standard Deviation 44.1 fL (36.4-46.3); Red Blood Count 3.04 M/uL (4.70-6.10); White Blood Count 8.36 K/ul (4.8-10.8)
[2022-11-10 06:45] LABS: BUN Creatinine Ratio 25.3 (10-20); Creatinine Clr Calc Pharmacy 40.6 ml/min; Est GFR (African American) 42.4 ml/min; Est GFR (Non-African American) 36.5 ml/min; Potassium 4.7 mmol/L (3.5-5.1)
[2022-11-10] MEDS: INSULIN ASPART PER UNIT SC SCH ×2 (08:55→12:15)
[2022-11-10] MEDS: PREGABALIN 75 MG CAP PO SCH (08:56)
[2022-11-10] MEDS: BUMETANIDE 1 MG TAB PO SCH (08:56)
[2022-11-10] MEDS: FEXOFENADINE HCL 180 MG TAB PO SCH (08:57)
[2022-11-10] MEDS: CHOLECALCIFEROL 1,000 UNITS 25 MCG TAB PO SCH (08:57)
[2022-11-10] MEDS: CLOPIDOGREL BISULFATE 75 MG TAB PO SCH (08:57)
[2022-11-10] MEDS: ISOSORBIDE MONONITRATE 20 MG TAB PO SCH (08:57)
[2022-11-10] MEDS: ASPIRIN 81 MG ECTAB PO SCH (08:57)
[2022-11-10] MEDS: CYANOCOBALAMIN (B-12) 500 MCG TABLET PO SCH (08:58)
[2022-11-10] MEDS: ATORVASTATIN 40 MG TAB PO SCH (08:58)
[2022-11-10] MEDS: PANTOprazole 40 MG TAB PO SCH (08:58)
[2022-11-10] MEDS: carvediloL 3.125 MG TAB PO SCH (08:59)
[2022-11-10] MEDS: hydrALAZINE 10 MG TAB PO SCH (08:59)
[2022-11-10] MEDS ORDERED: LANTUS PER UNIT CHARGE SQ SCH (09:00)
--- NOTE | 2022-11-10 10:17 | Discharge Summary ---
Date of Service November 10, 2022 Admission HPI Per Admitting Provider This is a 72-year-old male presents with chronic persistent back and leg pain after failing extensive course of nonoperative care is here for surgical invention. Principal Diagnosis Lumbar spinal stenosis with neurogenic claudication Discharge Data Allergies Allergy/AdvReac Type Severity Reaction Status Date / Time morphine Allergy Mild felt funny Verified 11/04/22 09:15 Consultations 11/04/22 15:27 Consult Hospitalist Routine Procedures Performed Operation Date: 11/04/22 10:25 Actual Procedures p L2-S1 Decompression and Fusion, Spinal Cord Monitoring(Not Applicable) - Jared Pate DO Ordered Studies 11/04/22 10:25 FL lumbar spine 2-3V Routine Hospital Course (1) Neurogenic claudication due to lumbar spinal stenosis: Patient underwent multilevel lumbar decompression fusion tolerated as well as taken to the PACU postoperatively. Postoperatively he progressed appropriately throughout his hospital stay. He did require a blood transfusion as well as iron. He did however progressed appropriately. KYUNG drain decreased appropriate. Excellent strength testing throughout his stay. Subsequently was discharged to rehab. Discharge orders instructions found in chart for further review. Total Time Total Time Spent Total Time Spent (In Minutes): 20 minutes Discharge Plan Discharge Items Patient Disposition: Transfer Inpatient Rehab Fac Reason For Visit: POSTOP Discharge Diagnosis: Lumbar spinal stenosis with neurogenic claudication Acute blood loss anemia Acute kidney injury Urinary retention Activity: As commented below Non-emergency contact: Primary Care Provider and Surgeon Call non-emergency contact if: you have any medication questions and your symptoms worsen Follow-up/Referrals: Elle Bo CRNP [Primary Care Provider] - Diet: Low Potassium (2gm) and Low Sodium (2gm) Fluids: 1500ml (6 cups) Addtl Attending Provider Instructions: ACTIVITY RECOMMENDATIONS: SELF CARE INSTRUCTIONS AFTER THORACIC/LUMBAR FUSIONS 1. You may walk to your tolerance. It is good exercise for your legs and back. Expect some back and intermittent leg aches and pains. 2. You may perform "counter-top" level activities (make a sandwich, joseph with a project, etc.). 3. No bending or lifting of more than 10 pounds or back twisting of any nature (roll like a log when turning in bed). 4. You may ride in a car for 20-30 minutes at a time. No driving until after your first visit with your doctor. 5. Frequent changes of position and restricting sitting to 30 minutes at a time will help limit the amount of back spasms and stiffness you may experience. 6. You may discontinue the use of ambulatory aids (cane, crutches, etc.) once your strength and confidence allow. 7. 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 Do not take a tub bath, sit in a hot tub or go into a swimming pool until after your first recheck in the office. SPECIAL CARE INSTRUCTIONS: VERY IMPORTANT TO READ AND REVIEW A. Your surgical incision has been closed with a cosmetic suture under the skin that will dissolve in about 6 weeks. In 14 days, you can use a pair of clean scissors and cut the suture that is left outside of the skin at the ends of your incision. 1. The small skin tapes can be removed 7 days after surgery if they have not fallen off by that point. 2. You may keep the wound open to air as much as possible to promote healing after post-op day number 5 unless told otherwise by your doctor. 3. If you think the wound looks like it is becoming infected (redness or worsening drainage) and/or you are experiencing fever, chill or worsening back pain and muscle spasms, contact the office so that we may evaluate you as soon as possible. B. Complications are uncommon, but please contact us if you have any signs or symptoms of: 1. wound infection (fever higher than 102.5 degrees F, redness, separation of wound, drainage, or increasing pain from the incision) 2. blood clots in legs (pain, swelling, redness and warmth in legs) 3. urinary tract infection (fever higher than 102.5 degrees F, burning upon urination or increased frequency of urination) 4. nerve problems (inability to walk on your toes or heels, numbness, loss of bowel or bladder control) 5. any other symptoms that concern you C. Please call the office at if you have any concerns or questions about your operation or recovery. D. No smoking! Smoking drastically decreases the chance of a solid fusion. E. Do not take any anti-inflammatory medications (Indocin, Advil, Motrin, Aspirin, Naprosyn, etc.) as these may inhibit the chance of a solid fusion. Tylenol is okay to take for pain. MANAGING PAIN AFTER SPINAL SURGERY 1. Narcotic medication is intended for short-term use and will be provided for surgical pain. Surgical pain usually lasts for a period of 4-6 weeks. Narcotic medication includes Percocet, Vicodin, Darvocet, Tylenol #3 or Lortab. 2. Longer-term pain is more appropriately treated with non-narcotic medication such as Tylenol ES. 3. Muscle spasm is not appropriately treated with narcotics. Muscle relaxers such as Soma, Flexeril or Skelaxin can be used along with Tylenol ES. 4. Remember that we all live with some "aches and pains". This is not unusual or uncommon after an injury or as we get older. a. Back pain is expected and may include muscle spasms for 4 to 6 weeks after surgery. The pain should gradually improve. If the pain worsens for no apparent reason, please contact the office. b. Intermittent leg pain may also be experienced and should not be concerned about unless it worsens for no apparent reason. If so, please contact the office. 5. We will provide appropriate medication within the normal guidelines of their prescribed use. We will also be very cautious and aware of potential abuse and extended duration of patients' medication needs. a. Pain medications are for your comfort and to assist with sleep and rest so that the tissue can heal. They are not provided in order to return to normal activity and should not be used through the day. To do so or worsening pain at night can result from ongoing tissue damage and development of tolerance to the prescribed medicine. 6. Please allow 2-3 days to process refills. Prescriptions will not be mailed but must be picked up at the office. FOLLOW UP VISIT: Keep your scheduled follow-up appointment. Any questions, please call the office at . Addtl Want Ad Receiver Provider Instructions: Your carvedilol dose was increased while you were here to better control the heart rate with your atrial flutter and fibrillation. You had some worsening of your kidney function but this improved with holding your diuretic pill for a few days. You can now restart your Eliquis blood thinner. You had 2 units of blood transfused and a total of 900mg of IV iron infused while you were here for your blood loss anemia. You are also deficient in vitamin B12 and this was given to you as well. Please check a CBC and BMP in 3 days to ensure renal function, potassium, and hemoglobin are all stable. Your Lyrica dose was reduced due to your reduced kidney function. Your insulin dose was reduced as well. You still have a Kelly catheter present in your bladder as you were having ongoing issues with urinating on your own. Please keep the catheter in place and you should have a trial of void within the week once you're more mobile. Pending Studies at Discharge: No Stand-Alone Forms: My [facility] Skilled Items Patient informed of condition?: Yes DNR: No Discharge Level of Care: Acute rehab Communicable Disease: No Discharge Prognosis: Improving Lines: None Urinary Catheter: Yes Medications and DC Order Prescriptions: New carvedilol 6.25 mg tablet 9.375 mg PO BID Qty: 90 0RF Rx Instructions: must administer with a meal/food acetaminophen [Tylenol Extra Strength] 500 mg Tablet 1,000 mg PO Q8H PRN (Reason: pain) Qty: 180 0RF pregabalin [Lyrica] 75 mg Capsule 75 mg PO BID Qty: 60 0RF oxycodone 5 mg Tablet 5 - 10 mg PO Q4H PRN (Reason: moderate-severe pain) Qty: 20 0RF bumetanide 0.5 mg tablet 0.25 mg PO DAILY Qty: 15 0RF sennosides-docusate sodium [Senokot-S] 8.6-50 mg Tablet 2 tab PO HS Qty: 60 0RF insulin aspart U-100 [Novolog U-100 Insulin aspart] 100 unit/mL Solution See Rx Instructions .ROUTE .COMPLEX Qty: 10 0RF Rx Instructions: Novolog sliding scale qac and qhs; Goal range 110-140, Correction factor 20mg/dl/unit, Carb ratio 6 grams/uni cyanocobalamin (vitamin B-12) 1,000 mcg capsule 1,000 mcg PO DAILY Qty: 30 0RF Continued clopidogrel [Plavix] 75 mg Tablet 75 mg PO QAM tamsulosin 0.4 mg Capsule 0.4 mg PO HS cholecalciferol (vitamin D3) [Vitamin D3] 25 mcg (1,000 unit) Capsule 25 mcg PO QAM ferrous sulfate 324 mg (65 mg iron) Tablet,Delayed Release (Dr/Ec) 324 mg PO QAM Victoza 2-Clem 0.6 mg/0.1 mL (18 mg/3 mL) Pen Injector 1.2 mg SUBCUT QAM Eliquis 5 mg Tablet 5 mg PO BID atorvastatin 80 mg Tablet 40 mg PO QAM aspirin 81 mg Tablet,Delayed Release (Dr/Ec) 81 mg PO QAM pantoprazole 40 mg Tablet,Delayed Release (Dr/Ec) 40 mg PO BID isosorbide mononitrate 10 mg Tablet 10 mg PO TID Rx Instructions: give doses 7 hrs apart hydralazine 10 mg Tablet 10 mg PO TID Changed insulin glargine [Lantus U-100 Insulin] 100 unit/mL Solution 25 unit SUBCUT QAM Qty: 10 0RF tramadol 50 mg Tablet 50 mg PO TID PRN (Reason: pain) Qty: 30 0RF polyethylene glycol 3350 [Miralax] 17 gram/dose Powder 17 g PO DAILY Qty: 119 0RF Discontinued bumetanide 2 mg Tablet 0.25 mg PO QAM carvedilol [Coreg] 12.5 mg Tablet 6.25 mg PO BID Rx Instructions: must administer with a meal/food pregabalin 150 mg Capsule 150 mg PO BID Discharge Orders: Discharge Order (Routine); Ordered 11/10/22 Ordered By: Jared Reyes/Other Patient Handouts: Managing Type 2 Diabetes Admission Data Admit Date/Time: 11/04/22 13:46 Attending Provider: Jared Pate Admit Provider: Jared Pate Primary Care Provider: Elle Bo Other Providers: [facility] ; Rufina Mata
--- NOTE | 2022-11-10 11:27 | Hospitalist Progress Note ---
Date of Service November 10, 2022 Assessment & Plan (1) Neurogenic claudication due to lumbar spinal stenosis: Plan: Now s/p lumbar decompression and fusion by Dr. Pate on 2 Postoperative management as per orthopedic spine surgeon EBL 950mL Required 2 units PRBCs on POD#1 for hemoglobin drop from preoperative 11.2 down to 8.2 and with tachycardia and acute kidney injury Hemoglobin now stable for several days at 8.2-8.3 and now up to 8.8 after receiving several days of IV iron KYUNG drain removed on 11/09 remains mildly tachycardic from previous blood loss and also with atrial fibrillation and flutter, BPs are improved -Pain well controlled-oxycodone as needed for pain -continue bowel regimen-finally had large BM just prior to discharge-continue Miralax, senna/docusate -Continue home pregabalin but reduced dose to 75mg po bid for reduced renal function -PT/OT evaluations appreciated -Follow CBC, BMP again in 3 days at rehab (2) ANEUDY (acute kidney injury): 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 from baseline 1.6, with mild/borderline hyperkalemia, likely post obstructive with urinae retention but also on aldactone and Bumex perioperatively held bumex and aldactone low potassium diet ordered received 2 units pRBCs so no need for further IVFs especially with known ischemic CM data management manager improved down to 1.7 and restarted home Bumex-data management manager stable now at 1.8 - reports that spironolactone was recently discontinued as an outpatient due to hyperkalemia-removed this from medication reconciliation home list -restarted home bumetanide 0.25mg po daily on 11/09 Follow BMP in 3 days at rehab -Cody in place for persistent urinary retention (3) Afib: Plan: With rapid afib and some a flutter from acute blood loss anemia/compensatory Rates now improved to 90s-100 with increased dose of Coreg -continue increased Coreg dose of 9.375mg po bid holding Eliquis for recent spine surgery, blood loss-plan to restart on 11/10 on discharge as per my d/w [facility] - restarted Plavix on 11/09 -f/u with outpt Cardiology after discharge from rehab (4) Urinary retention: Plan: After Cody catheter was removed on postop day #1, he was requiring straight caths and a Cody catheter was replaced on the evening of 11/06 continue home BPH meds TOV in 1 week or sooner if more mobile, less opioid use Constipation was also contributing and that is now resolving Will need outpatient follow-up potentially with urology but could do trial of void at rehab (5) Anemia: Plan: Hemoglobin is mildly low at baseline at 11 and anemia is normocytic Now with acute blood loss anemia, hgb dropped to 8.2, with associated ANEUDY Received 2 units pRBCs on 11/05 and now hgb only up to 8.5 but HD stable, mild tachycardia EBL of surgery 950mL Checked iron studies, TSH, B12 and folate -Fe deficient at transferrin sat 9%, B12 deficient with B12 260. Folate and TSH normal Gave IV Venofer x 3 doses Gave IM B12 x3 doses and then converted to p.o. B12 1000 mcg daily Continue home ferrous sulfate 325 Mg p.o. once daily -follow CBC in 3 days at rehab (6) Acute blood loss anemia: Plan: as above (7) Myoclonic jerking: Plan: noted in bilat upper extremities on 11/05 could be 2/2 renal failure, pain meds, ?withdrawal from tramadol? reduced Lyrica dosing now resolved (8) Hypertension: Plan: Blood pressures are controlled to low normal with blood loss -restarted Bumex -Continue carvedilol, isosorbide, and hydralazine (9) Diabetes mellitus, type 2: Plan: Pharmacy is managing glycemic control with basal and bolus insulin Hemoglobin A1c 7.2% in 2020 Checked hemoglobin A1c -7.0&, well controlled Lowered Lantus dose to 25 units on discharge (from 40) while using Novolog SSI. Restart home Victoza on discharge (10) CAD (coronary artery disease): Plan: Status post CABG x2 with ischemic CM, chronic systolic CHF with last EF 45% Continue aspirin and Plavix Continue atorvastatin, carvedilol, hydralazine, isosorbide, bumex (11) Chronic kidney disease, stage 3: Plan: With ANEUDY on CKD stage III, renal function around baseline with creatinine 1.6 as above, improving ANEUDY -Avoid nephrotoxins -renally dose meds when appropriate-reduced Lyrica dose as above -follow BMP as outpt -no longer on spironolactone due to previous hyperkalemia (12) BPH (benign prostatic hyperplasia): Plan: with retention as above Continue tamsulosin replaced Cody Trial of void in 1 week-around 11/14 (13) Hyperlipidemia: Plan: Continue atorvastatin (14) Itching: Plan: 10/30 dressing/tape on back surgical site no rash suleiman not helping asked RN to change type of tape Plan Disposition-medically stable for discharge to rehab placement at [facility] today. Discussed care with Dr. Pate of Ortho Spine on day of discharge Discussed care with on the phone on 11/08 Admission and Anticipated Discharge Date Admission Date: November 04, 2022 Subjective Pt working with PT when I saw him. No longer on O2 and feeling better. Finally moved bowels a large amount. Cody in place Tele with Afib and flutter, rates 90-100s Review of Systems Review of Systems: All systems reviewed & are unremarkable except as noted in HPI & below Physical Exam Constitutional: WD/WN, vitals as above ENMT: external ear and nose normal, oropharynx normal Neck: trachea midline, no thyromegaly Respiratory: normal respiratory effort, lungs clear to auscultation Cardiovascular: Rate/Rhythm: regular rate and + irregularly irregular Heart Sounds: no murmur Chest (Breasts): Chest: normal inspection of chest Gastrointestinal (Abdomen): normal bowel sounds, soft, nontender, no hepatosplenomegaly Musculoskeletal: Extremities: extremities normal to inspection; no cyanosis and no clubbing Skin: no rashes, warm and dry Neurologic: moves all extremities and awake; no focal motor deficits Psychiatric: A+Ox3, euthymic affect Orientation: cooperative Genitourinary: Cody in place draining clear yellow urine Lymphatic: no lymphedema Results & Data Results & Data ([facility]) Vital Signs (Past 12 Hours) Vital Signs Temp Pulse Resp BP Pulse Ox O2 Del Method 11/10/22 07:36 36.6 C 101 H 19 142/86 H 97 Room Air 11/10/22 03:53 36.8 C 103 H 18 122/78 97 Room Air 11/09/22 23:35 36.7 C 99 H 18 131/76 92 Room Air Laboratory Results CBC, BMP reviewed PG Care Time/CCT Total # of Minutes Spent Total Time Spent with Patient: Total time spent is greater than 50% in coordination of care (as documented) at patient's floor/unit and/or counseling patient: Coding Level of Care Code 11661 SUB INP/OBS CARE MIN Diagnoses Neurogenic claudication due to lumbar spinal stenosis M48.062 ANEUDY (acute kidney injury) N17.9 Afib I48.91 Urinary retention R33.9 Anemia D50.9 Anemia type: iron deficiency Iron deficiency anemia type: unspecified iron deficiency Acute blood loss anemia D62 Myoclonic jerking G25.3 Hypertension I10 Hypertension type: essential hypertension Diabetes mellitus, type 2 E11.9 CAD (coronary artery disease) I25.119 Coronary Disease-Associated Artery/Lesion type: [place] artery [place] vs. transplanted heart: [place] heart Associated angina: with unspecified angina Chronic kidney disease, stage 3 N18.32 Chronic kidney disease stage 3 subtype: stage 3b (GFR 30-44) BPH (benign prostatic hyperplasia) N40.0 Lower urinary tract symptom presence: symptoms absent Hyperlipidemia E78.5 Hyperlipidemia type: unspecified Itching L29.9 (1) Anemia Anemia type: iron deficiency Iron deficiency anemia type: unspecified iron deficiency Qualified Code(s): D50.9 - Iron deficiency anemia, unspecified (2) Hypertension Hypertension type: essential hypertension Qualified Code(s): I10 - Essential (primary) hypertension (3) CAD (coronary artery disease) Coronary Disease-Associated Artery/Lesion type: [place] artery [place] vs. transplanted heart: [place] heart Associated angina: with unspecified angina Qualified Code(s): I25.119 - Atherosclerotic heart disease of [place] coronary artery with unspecified angina pectoris (4) Chronic kidney disease, stage 3 Chronic kidney disease stage 3 subtype: stage 3b (GFR 30-44) Qualified Code(s): N18.32 - Chronic kidney disease, stage 3b (5) BPH (benign prostatic hyperplasia) Lower urinary tract symptom presence: symptoms absent Qualified Code(s): N40.0 - Benign prostatic hyperplasia without lower urinary tract symptoms (6) Hyperlipidemia Hyperlipidemia type: unspecified Qualified Code(s): E78.5 - Hyperlipidemia, unspecified
--- NOTE | 2022-11-11 11:19 | Coding Query ---
BMI To promote full compliance with coding requirements relating to patient care, physician participation is requested in all cases of manager enterprise uncertainty. Please assist us with the question(s) below: Please place an X within the parenthesis (x). If other, please document: BMI 33 was documented in this record for this patient. If the BMI is significant, please check the box that provides a more specific associated diagnosis: ( ) Overweight/Obese (x ) Obesity ( ) Morbid obesity ( ) Obesity Hypoventilation Syndrome (OHS) ( ) Heathy weight, not significant ( ) Underweight/Thin ( ) Other, please specify Thank you Latha VALADEZ
== END 2022-11-10 13:09 | DRG 454 ==
LOC: ASU 08:47 → 3E 13:46 → 4W 11-05 16:07

== ENCOUNTER 2024-11-14 10:03 | Inpatient (IN) ==
--- NOTE | 2024-11-08 14:07 | Anesthesiology Consultation ---
Date of Service November 08, 2024 Assessment & Plan (1) Encounter for pre-operative examination: Chart Review Chart Review: Pending: Refer to Additional Notes / Consult section (1. Please obtain PCP note from 11/08/24 and EKG (pt states PCP sent him to [place] for an EKG 2/2 HR in 30s); 2. Please obtain most recent Cardio note and testing; 3. Please send optimization note and surgeon-ordered preop labs to [employer] ( [facility]) and Patient NOT seen in Pre Admission Testing Infectious Disease screening: Per PAT nursing assessment on 11/08/24, No known infectious disease contacts in past 10 days or current infectious disease symptoms. No recent travel outside the country. History Surgery Operation Date: 11/14/24 12:25 Proposed Procedures p Right Sacroiliac Joint Fusion - Jared Pate, Height/Weight Height: 5 ft 7 in Weight: 91.626 kg Allergies Allergy/AdvReac Type Severity Reaction Status Date / Time morphine Allergy Mild felt funny Verified 11/08/24 12:23 Medications Home Medications Medication Instructions Recorded Confirmed Last Taken cholecalciferol (vitamin D3) 25 25 mcg PO QAM 11/09/20 11/08/24 11/03/22 08:00 mcg (1,000 unit) capsule (Vitamin D3) ferrous sulfate 324 mg (65 mg 324 mg PO QAM 11/09/20 11/08/24 11/03/22 08:00 iron) tablet,delayed release tamsulosin 0.4 mg capsule 0.4 mg PO HS 11/09/20 11/08/24 11/03/22 21:00 apixaban 5 mg tablet (Eliquis) 5 mg PO BID 10/31/22 11/08/24 11/01/22 aspirin 81 mg tablet,delayed 81 mg PO QAM 10/31/22 11/08/24 11/03/22 08:00 release atorvastatin 80 mg tablet 40 mg PO QAM 10/31/22 11/08/24 11/03/22 08:00 isosorbide mononitrate 10 mg tablet 10 mg PO TID 10/31/22 11/08/24 11/04/22 07:30 pantoprazole 40 mg tablet,delayed 40 mg PO BID 10/31/22 11/08/24 11/03/22 08:00 release cyanocobalamin (vitamin B-12) 1,000 mcg PO DAILY #30 caps 11/10/22 11/08/24 Unknown 1,000 mcg capsule insulin aspart U-100 100 unit/mL See Rx Instructions .Route 11/10/22 11/08/24 Unknown subcutaneous solution (Novolog .COMPLEX #10 mL U-100 Insulin aspart) insulin glargine 100 unit/mL 25 unit (0.25 mL) subcut QAM #10 mL 11/10/22 11/08/24 11/03/22 08:00 subcutaneous solution (Lantus U-100 Insulin) pregabalin 75 mg capsule (Lyrica) 75 mg PO BID #60 caps 11/10/22 11/08/24 Unknown acetaminophen 500 mg tablet 500 mg PO Q8H PRN pain 11/08/24 11/08/24 Unknown (Tylenol Extra Strength) carvedilol 6.25 mg tablet 6.25 mg PO BID 11/08/24 11/08/24 Unknown oxycodone 5 mg tablet 5 - 10 mg PO Q6H PRN 11/08/24 11/08/24 Unknown moderate-severe pain sodium zirconium cyclosilicate 10 10 g PO UD 11/08/24 11/08/24 Unknown gram oral powder packet (Lokelma) Past Medical History Medical History (Updated 11/08/24 @ 14:21 by Irais Nieves PA-C) Anticoagulant long-term use on eliquis, states cardio will have him stop and start lovenox prior to surgery BPH (benign prostatic hyperplasia) Bradycardia pt reports saw pcp 11/08/24 (Corin Shea at [facility]), heart rate running the 30's, pt. slightly dizzy, was sent for EKG at [facility], heart rate up to 60's, pt. states he just found out a good friend this morning and pt. was feeling anxious CAD (coronary artery disease) s/p multiple remote stents, CABG x5 (1995), CABG x3 (2018)- follows with [facility] [place] (Dr. Richardson Valenzuela) Chronic back pain Chronic kidney disease, stage [address] Juan in in [place] [id number] Congestive heart failure chronic systolic HF; follows with [facility] [place] (Dr. Richardson Trageser) Diabetes mellitus, type 2 History of anesthesia reaction woke up after recent cardiac ablation and pt states "i was strapped down and it really scared me" History of atrial fibrillation (04/2024) ablation 04/2024 History of TIAs (1996) x 2 HLD (hyperlipidemia) Hx of gastric ulcer (2019) bleeding stomach ulcer, hospitalized at [facility] required blood transfusions Hx of myocardial infarction (1995) believes only 1 mi in 1995, had 3 caths total, 2 CABG's, all at [facility] Hx of upper gastrointestinal hemorrhage (2019) Hypertension Ischemic cardiomyopathy Macular degeneration of both eyes receives injections in eyes Neurogenic claudication due to lumbar spinal stenosis Peripheral neuropathy Sleep apnea MEIR; no device Spinal stenosis Past Family History Family History Other Family history non-contributory Past Surgical History Surgical History (Updated 11/08/24 @ 14:04 by Irais Nieves PA-C) History of arthroscopy of right knee History of cardiac radiofrequency ablation (RFA) (04/2024) formerly [facility] in [place]- follows with dr. alejandra and dr. hairston at [facility] (~6 months) History of colonoscopy History of elbow surgery left tendon History of esophagogastroduodenoscopy (EGD) History of heart artery stent 2nd heart cath sometime between [id number] and believes 2-3 stents at [facility] History of lumbar fusion L2-S1 decompression fusion 11/04/2022: [place]: MAC#3, ETT#7.5 DVL x 1, Gr View 1 (per anesthesia record, pt in afib 120s prior to IV induction) History of tonsillectomy and adenoidectomy as a child History of total left knee replacement Hx of appendectomy Hx of CABG (2018) CABG x5 (1995), CABG x3 (2018) - [facility] in [place]- follows with dr. alejandra and dr. hairston at [facility] (~6 months) Hx of cardiac catheterization x3 [place],had ruptured artery during heart cath [facility]1995[id number] and [facility] ([facility] - [facility] in [place]- follows with dr. alejandra and dr. hairston at [facility] (~6 months) Hx of cataract extraction b/l Hx of repair of right rotator cuff x 2 S/P epidural steroid injection Social History Smoking Status: Former smoker Do You Dip or Chew Tobacco: No Smoking End Date: 36 years ago Hx Alcohol Use: Yes Alcohol Intake Frequency Comment: quit 38 years ago Hx Substance Use: No substance use type: does not use Testing Laboratory Results 10/12/24: WBC: 9.65 H/H: 13.5/40.6 PLATELETS: 205 SODIUM: 135 POTASSIUM: 6.0(*H) CHLORIDE: 104 CO2: 29 BUN: 33 (H) CREATININE: 2.3 (H) GLUCOSE: 250 (H) PT: 16.9(H) PTT: 48.4(H) INR: 1.48(H) Chest X-Ray Date: 10/12/24 Findings: + NAD Calcified atherosclerotic changes are noted. Pleural pericardial scarring is redemonstrated on the left. There is no hilar enlargement, pulmonary congestion, or hyperinflation. Stable imaging.
[2024-11-14] MEDS: SODIUM CHLORIDE 0.9% 1000ML IV SCH (11:00)
[2024-11-14] MEDS: CeleBREX 200 MG CAP PO SCH (11:04)
[2024-11-14] MEDS: ACETAMINOPHEN 500 MG TAB PO SCH (11:04)
[2024-11-14] MEDS: LR 60ML/HR IV SCH (11:05)
[2024-11-14] MEDS: GABAPENTIN 300 MG CAP PO SCH (11:29)
[2024-11-14] MEDS ORDERED: LIDOCAINE 2% 2 ML VIAL/AMP(20MG/ML) INFIL ONE ×2 (12:25)
[2024-11-14] MEDS ORDERED: fentaNYL citrate PF 100 MCG/2 ML VIAL ONE (12:25)
[2024-11-14] MEDS ORDERED: ROCURONIUM BROMIDE 10 MG/ML 5 ML VIAL IV ONE (12:27)
[2024-11-14] MEDS ORDERED: ONDANSETRON INJ 2 MG/ML 2 ML VIAL ONE (12:28)
[2024-11-14] MEDS ORDERED: PROPOFOL IV EMULSION 10 MG/ML 20 ML VIAL IV ONE (12:28)
[2024-11-14] MEDS ORDERED: DEXAMETHASONE SOD INJ 4 MG/ML VIAL ONE (12:28)
--- NOTE | 2024-11-14 12:52 | History & Physical Bridge Note ---
Date of Service November 14, 2024 History & Physical Bridge Note I have examined the patient, reviewed the History & Physical and in the interval since the performance of the History & Physical I have noted the following changes of clinical significance: no changes noted
--- NOTE | 2024-11-14 12:54 | History & Physical Report ---
Date of Service November 14, 2024 Assessment & Plan (1) Sacroiliitis: Plan: Right sacroiliac joint fusion History of Present Illness Chief Complaint: Sacroiliitis Primary Care Provider: ITALO Valerio This is a 74-year-old male well-known to me the presents with chronic persistent sacroiliitis. After failing course of nonoperative care is here for surgical invention. Allergies Allergy/AdvReac Type Severity Reaction Status Date / Time morphine Allergy Mild severe Verified 11/14/24 10:37 shaking dipyridamole Allergy Unknown listed in Verified 11/14/24 10:37 cardiology records aspirin-dipyridamole Allergy Unknown listed in Uncoded 11/14/24 10:37 cardiology records Home Medications Medication Instructions Recorded Confirmed Type cholecalciferol (vitamin D3) 25 25 mcg PO QAM 11/09/20 11/14/24 History mcg (1,000 unit) capsule (Vitamin D3) ferrous sulfate 324 mg (65 mg 324 mg PO QAM 11/09/20 11/14/24 History iron) tablet,delayed release tamsulosin 0.4 mg capsule (Flomax) 0.4 mg PO HS 11/09/20 11/14/24 History apixaban 5 mg tablet (Eliquis) 5 mg PO BID 10/31/22 11/14/24 History aspirin 81 mg tablet,delayed 81 mg PO QAM 10/31/22 11/14/24 History release atorvastatin 80 mg tablet (Lipitor) 40 mg PO QAM 10/31/22 11/14/24 History isosorbide mononitrate 10 mg tablet 10 mg PO TID 10/31/22 11/14/24 History pantoprazole 40 mg tablet,delayed 40 mg PO BID 10/31/22 11/14/24 History release cyanocobalamin (vitamin B-12) 1,000 mcg PO DAILY #30 caps 11/10/22 11/14/24 Rx 1,000 mcg capsule insulin aspart U-100 100 unit/mL See Rx Instructions .Route 11/10/22 11/14/24 Rx subcutaneous solution (Novolog .COMPLEX #10 mL U-100 Insulin aspart) insulin glargine 100 unit/mL 25 unit (0.25 mL) subcut QAM #10 mL 11/10/22 11/14/24 Rx subcutaneous solution (Lantus U-100 Insulin) pregabalin 75 mg capsule (Lyrica) 75 mg PO BID #60 caps 11/10/22 11/14/24 Rx acetaminophen 500 mg tablet 500 mg PO Q8H PRN pain 11/08/24 11/14/24 History (Tylenol Extra Strength) carvedilol 6.25 mg tablet (Coreg) 6.25 mg PO BID 11/08/24 11/14/24 History oxycodone 5 mg tablet 5 - 10 mg PO Q6H PRN 11/08/24 11/14/24 History moderate-severe pain sodium zirconium cyclosilicate 10 10 g PO UD 11/08/24 11/14/24 History gram oral powder packet (Lokelma) semaglutide 1 mg/dose (4 mg/3 mL) 1 mg subcut WK 11/11/24 11/14/24 History subcutaneous pen injector (Ozempic) enoxaparin 30 mg/0.3 mL 30 mg subcut DAILY 11/14/24 11/14/24 History subcutaneous syringe (Lovenox) Past Med/Surg History Problem List (Updated 11/14/24 @ 12:53 by Jared Pate DO) Sacroiliitis Itching Urinary retention Myoclonic jerking Acute blood loss anemia after lumbar fusion 10/2022; required transfusion and iron Neurogenic claudication due to lumbar spinal stenosis s/p lumbar fusion 10/2022 Afib S/P total knee arthroplasty DVT prophylaxis History of total left knee replacement Osteoarthritis of left knee Encounter for pre-operative examination CAD (coronary artery disease) s/p multiple remote stents, CABG x5 (1995), CABG x3 (2018)- follows with [facility] [place] (Dr. Richardson Valenzuela) Macular degeneration receives injections in eyes Spinal stenosis Chronic kidney disease, stage [address] Juan in [place] in [place] [phone] BPH (benign prostatic hyperplasia) Diabetes mellitus, type 2 IDDM TIA (transient ischemic attack) 1996 Hyperlipidemia Hypertension Rotator cuff tear arthropathy of right shoulder (Acute 02/01/14) Medical History (Updated 11/14/24 @ 12:53 by Jared Pate DO) Carotid artery stenosis s/p right CEA 2004; moderate stenosis on 2018 doppler per cardiology office Bifascicular block ongoing since at least 2022 CKD (chronic kidney disease) stage 4, GFR 15-29 ml/min Frequent PVCs NICM (nonischemic cardiomyopathy) CAD (coronary artery disease) s/p multiple remote stents, CABG x5 (1995), CABG x3 (2018)- follows with [facility] [place] (Dr. Richardson Valenzuela) Neurogenic claudication due to lumbar spinal stenosis Hx of myocardial infarction (1995) believes only 1 mi in 1995, had 3 caths total, 2 CABG's, all at [facility] Anticoagulant long-term use on eliquis, states cardio will have him stop and start lovenox prior to surgery Bradycardia pt reports saw pcp 11/08/24 (Corin Shea at [facility]), heart rate running the 30's, pt. slightly dizzy, was sent for EKG at [facility], heart rate up to 60's, pt. states he just found out a good friend this morning and pt. was feeling anxious Anemia Peripheral neuropathy Macular degeneration of both eyes receives injections in eyes BPH (benign prostatic hyperplasia) HLD (hyperlipidemia) Hypertension Hx of upper gastrointestinal hemorrhage (2019) Hx of gastric ulcer (2019) bleeding stomach ulcer, hospitalized at [facility] required blood transfusions Diabetes mellitus, type 2 History of TIAs (1996) x 2 History of atrial fibrillation (04/2024) ablation 04/2024 Spinal stenosis History of anesthesia reaction woke up after recent cardiac ablation and pt states "i was strapped down and it really scared me" Ischemic cardiomyopathy Chronic back pain Congestive heart failure chronic systolic HF; follows with [facility] [place] (Dr. Richardson Valenzuela) Sleep apnea MEIR; no device Surgical History History of right-sided carotid endarterectomy (~2004) History of lumbar fusion L2-S1 decompression fusion 11/04/2022: [place]: MAC#3, ETT#7.5 DVL x 1, Gr View 1 (per anesthesia record, pt in afib 120s prior to IV induction) History of heart artery stent 2nd heart cath sometime between [id number] and believes 2-3 stents at [facility] Hx of cataract extraction b/l History of tonsillectomy and adenoidectomy as a child Hx of appendectomy Hx of cardiac catheterization x3 [place],had ruptured artery during heart cath CABG x5 (1995), [facility] 2nd heart cath sometime between [id number] and [facility] 2[facility] [facility] - [facility] [place]- [facility] with dr. alejandra and dr. hairston at [facility] (~6 months) History of cardiac radiofrequency ablation (RFA) (04/2024) [facility] in [place]- [facility] with dr. alejandra and dr. hairston at [facility] (~6 months) History of colonoscopy History of esophagogastroduodenoscopy (EGD) History of total left knee replacement S/P epidural steroid injection Hx of CABG (2019) CABG x5 (1995), CABG x3 (2018) - [facility] in [place]- [facility] with dr. alejandra and dr. 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
[2024-11-14] MEDS ORDERED: ONDANSETRON INJ 2 MG/ML 2 ML VIAL IV PRN ×2 (13:11→15:55)
[2024-11-14] MEDS ORDERED: HYDROmorphone INJ 1 MG/ML SYRINGE IV PRN ×2 (13:11→15:55)
[2024-11-14] MEDS ORDERED: ePHEDrine sulfate 50 MG/ML AMP IV PRN (13:11)
[2024-11-14] MEDS ORDERED: fentaNYL citrate PF 100 MCG/2 ML VIAL IV PRN (13:11)
[2024-11-14] MEDS ORDERED: ATROPINE SULFATE 0.1 MG/ML 10ML SYR IV PRN (13:11)
[2024-11-14] MEDS: ceFAZolin 2000MG 2,000 MG/15 ML SYR IV SCH ×2 (13:13→22:55)
[2024-11-14] MEDS: ceFAZolin 330 MG/ML 1 GM VIAL ONE (13:40)
[2024-11-14] MEDS: BUPIVACAINE/EPINEPHRINE 0.5% MPF 1:200,000 30 ML VIAL ONE (13:40)
[2024-11-14] MEDS ORDERED: ePHEDrine sulfate 50 MG/5 ML SYR ONE (13:41)
[2024-11-14] MEDS ORDERED: SUGAMMADEX SODIUM 200 MG/2 ML VIAL IV ONE (13:48)
[2024-11-14] MEDS: FLOSEAL HEMOSTATIC MATRIX 10ML TOP ONE (13:50)
--- NOTE | 2024-11-14 13:56 | Operative Report ---
Post Operative Report Pre & Post Diagnosis Operation Date: 11/14/24 12:25 Pre-Op Diagnosis: Sacroiliitis right Post-Op Diagnosis: Same I identified the patient and participated in the time-out.: Yes Procedure Operation Date: 11/14/24 12:25 Actual Procedures #1 open right SI joint fusion. #2 placement of Nevro one 9 mm implant filled with os design bone graft. Surgeon Jared Pate DO [employer]ty [employer] Assembler Marina King Estimated Blood Loss 50 Findings Consistent with Post-Op Diagnosis Specimens None Indications This is a 74-year-old male well-known to me the presents with chronic persistent right sacroiliitis. After failing extensive course of nonoperative care is here for surgical invention. Description of Procedure Patient was met with identified informed consent obtained. Patient was then taken to the operative suite underwent intubation placed in a prone position on the Sreedhar table with a chest padded bolsters. The right upper buttock was then prepped and draped no sterile fashion. The assistance of fluoroscopy notified the posterior aspect of the right SI joint. Approximately 3 cm incision was made directly over the right SI joint. I dissected down to the posterior ligaments and released them. Then placed a joint finder directly in the joint and verified position in AP and lateral planes. I then dilated over the joint finder followed by placing a working cannula within the joint drilling curetting and rasping out the SI joint to subcortical bleeding bone. I then placed a 9 mm implant filled with os designed directly to the joint interdigitating the ileum to the sacrum. The working apparatus was removed the incision copious irrigated and closed with subcutaneous Vicryl and 4 Monocryl for final closure. Steri-Strips sterile dressing placed. Patient waken taken PACU stable condition. Please note Marina King was present at the entire proce dure: The patient positioning complex portion of the surgery and final skin closure. I attest to the content of the Intraoperative Record and any orders documented therein. Any exceptions are noted below.
--- NOTE | 2024-11-14 14:38 | Fluoroscopy Report ---
FL sacrum CLINICAL HISTORY: RT SI JOINT FUSION COMPARISON STUDY: Lumbar spine radiographs October 07, 2022. FLUOROSCOPY TIME: 50 seconds. Ka,r: 43.56 mGy FLUOROSCOPIC IMAGES: 2 FINDINGS: Fluoroscopy was provided during right SI joint fusion. Hardware is intact. There are no une xpected radiopaque foreign bodies. Lumbosacral fusion is partially imaged. IMPRESSION: Fluoroscopy provided during right SI joint fusion. ACT 112: Negative or not required by law. Electronically signed by: Dennys Toledo M.D. 11/14/2024 2:37 PM
[2024-11-14] MEDS ORDERED: ACETAMINOPHEN 1,000 MG/100 ML VIAL IV PRN (15:55)
[2024-11-14] MEDS ORDERED: MAGNESIUM HYDROXIDE SUSP 30 ML UDC PO PRN (15:55)
[2024-11-14] MEDS ORDERED: PROMETHAZINE 12.5 MG/50.5 ML BAG IV PRN (15:55)
[2024-11-14] MEDS ORDERED: NALOXONE HCL 0.4 MG/1 ML VIAL/CARP IV PRN (15:55)
[2024-11-14] MEDS ORDERED: METOCLOPRAMIDE HCL INJ 5 MG/ML 2 ML VIAL IV PRN (15:55)
[2024-11-14] MEDS ORDERED: HYDROmorphone INJ 0.5 MG/0.5 ML SYR IV PRN (15:55)
[2024-11-14] MEDS ORDERED: traMADol HCL 50 MG TABLET PO PRN (15:55)
[2024-11-14] MEDS ORDERED: ACETAMINOPHEN 500 MG TAB PO PRN ×2 (15:55)
[2024-11-14] MEDS ORDERED: PHARMACY GLYCEMIC MGMT CONSULT PRN ×2 (15:55→17:39)
[2024-11-14] MEDS ORDERED: ONDANSETRON 4 MG OD TAB PO PRN (15:55)
[2024-11-14 16:04] VITALS: RESP 18
[2024-11-14] MEDS ORDERED: GLUCAGON FOR INJ 1 MG VIAL SQ PRN (16:45)
[2024-11-14] MEDS ORDERED: GLUCOSE 10 TAB/TUBE PO PRN (16:45)
[2024-11-14] MEDS ORDERED: CARBOHYDRATES FOR HYPOGLYCEMIA PO PRN (16:45)
[2024-11-14] MEDS ORDERED: DEXTROSE 50% 50 ML SYRINGE IV PRN (16:45)
[2024-11-14] MEDS ORDERED: GLUCOSE 40% GEL 15 GM TUBE PO PRN (16:45)
--- NOTE | 2024-11-14 16:45 | Anesthesiology Progress Note ---
Date of Service November 14, 2024 Anesthesia Post Procedure Vital Signs Vital Signs: Temp Pulse Pulse Resp BP Pulse Ox O2 Del Method 11/14/24 16:10 36.4 C L 75 18 117/70 90 Room Air 11/14/24 15:40 36.3 C L 66 18 153/70 H 91 Room Air 11/14/24 15:10 36.4 C L 59 L 18 149/79 H 92 Room Air 11/14/24 14:55 65 16 154/76 H 97 Room Air 11/14/24 14:45 36.7 C 65 14 149/79 H 98 Room Air 11/14/24 14:35 65 16 158/85 H 98 Nasal Cannula 11/14/24 14:25 65 14 137/75 92 Room Air 11/14/24 14:15 64 18 134/99 98 Room Air 11/14/24 14:06 36.0 C L 70 12 167/86 H 98 Oxymask 11/14/24 10:47 36.5 C 71 20 147/84 H 95 Room Air O2 Flow Rate 11/14/24 16:10 11/14/24 15:40 11/14/24 15:10 11/14/24 14:55 0 11/14/24 14:45 0 11/14/24 14:35 2 11/14/24 14:25 0 11/14/24 14:15 0 11/14/24 14:06 8 11/14/24 10:47 Pain Intensity Lower Back: Pain Intensity: 4 Transfer of Care Handoff Completed per policy Notes Mental Status: alert / awake / arousable and participated in evaluation Patient Amnestic to Procedure: Yes Nausea / Vomiting: adequately controlled Pain: adequately controlled Airway Patency, RR, SpO2: stable & adequate BP & HR: stable & adequate Hydration State: stable & adequate Anesthetic Complications: no major complications apparent and Pt Satisfied with anesthetic care
[2024-11-14] MEDS: SODIUM ZIRCONIUM CYCLOSILICATE 10 GM PACKET PO SCH (16:55)
--- NOTE | 2024-11-14 17:42 | Hospitalist Consultation ---
Date of Consultation November 14, 2024 Assessment & Plan (1) Sacroiliitis: (2) Chronic kidney disease, stage 3: (3) Diabetes mellitus, type 2: Plan This is a 74 year old gentleman with past medical history of Type 2 Diabetes, A fib, CKD stage 3, TIA, hyperlipidemia, hypertension who presented to the hospital for an elective surgery with Dr. Pate on 11/14/2024. #Sacroiliitis s/p SI joint fusion 11/14 w/ Dr. Pate Pain management, bowel regimen per primary team Bladder scan, straight cath prn if unable to urinate on own. #A fib On Eliquis outpatient cardiology recently transitioned patient to Lovenox prior to operation. When deemed safe by surgeon, patient should either be on Lovenox 90mg Subq BID vs Eliquis 5mg BID. - will discuss w/ Dr. Pate Continue Carvedilol/Isosorbide mononitrate #Type 2 DM On insulin and Ozempic outpatient. - hold Ozempic while inpatient Given recent hypoglycemia, consult pharmacy to aide in management On sliding scale, adjust as necessary Update A1c in AM #CKD stage 3 Per PCP medical clearance - avoid NSAIDs Continue Lokelma 4 times weekly AM BMP/CBC Chronic conditions: HLD: statin GERD: PPI BPH: Flomax Code: Full DVT prophylaxis: per primary team, lovenox Case discussed w/ Dr. Patel at time of consultation. Supervising Physician Co-Signing Physician Notes Patient seen and examined, chart reviewed, case discussed with Kera Daigle PA-C and I agree with the assessment and plan as above except as otherwise noted Labs and images reviewed Seen at the bedside. Did discuss A-fib dosing. Per preoperative recommendations is recommended to eventually transition postop to either Lovenox 90 mg subcu twice daily or Eliquis twice daily. Discussed with operative team. to balance risk/benefit of anticoagulation with postoperative bleeding after SI joint fusion did recommend deferring above dosing for at least another 1-2 days from a surgical standpoint. Reasonable to continue low prophylactic dosing with Eliquis for now. Agree with above History of Present Illness Attending Physician: Jared Pate, DO History of Present Illness This is a 74 year old gentleman with past medical history of Type 2 Diabetes, A fib, CKD stage 3, TIA, hyperlipidemia, hypertension who presented to the hospital for an elective surgery with Dr. Pate on 11/14/2024. Patient was seen and examined following his procedure. Patient reported to be feeling well at time of encounter. He was in no pain. He denied CP or SOB. Patient states that he has not urinated since prior to his operation today and states he does have an enlarged prostate. He states that he does not have the urge to urinate either. Patient also states that he is on chronic insulin therapy outpatient and most recently has started Ozempic. Since starting Ozempic, his blood glucose has been running on the lower side. He states his last A1c was checked by the [facility] and he believes it to be around 8%. Allergies Allergy/AdvReac Type Severity Reaction Status Date / Time morphine Allergy Mild severe Verified 11/14/24 10:37 shaking dipyridamole Allergy Unknown listed in Verified 11/14/24 10:37 cardiology records aspirin-dipyridamole Allergy Unknown listed in Uncoded 11/14/24 10:37 cardiology records Home Medications Medication Instructions Recorded Confirmed Type cholecalciferol (vitamin D3) 25 25 mcg PO QAM 11/09/20 11/14/24 History mcg (1,000 unit) capsule (Vitamin D3) ferrous sulfate 324 mg (65 mg 324 mg PO QAM 11/09/20 11/14/24 History iron) tablet,delayed release tamsulosin 0.4 mg capsule (Flomax) 0.4 mg PO HS 11/09/20 11/14/24 History apixaban 5 mg tablet (Eliquis) 5 mg PO BID 10/31/22 11/14/24 History aspirin 81 mg tablet,delayed 81 mg PO QAM 10/31/22 11/14/24 History release atorvastatin 80 mg tablet (Lipitor) 40 mg PO QAM 10/31/22 11/14/24 History isosorbide mononitrate 10 mg tablet 10 mg PO TID 10/31/22 11/14/24 History pantoprazole 40 mg tablet,delayed 40 mg PO BID 10/31/22 11/14/24 History release cyanocobalamin (vitamin B-12) 1,000 mcg PO DAILY #30 caps 11/10/22 11/14/24 Rx 1,000 mcg capsule insulin aspart U-100 100 unit/mL See Rx Instructions .Route 11/10/22 11/14/24 Rx subcutaneous solution (Novolog .COMPLEX #10 mL U-100 Insulin aspart) insulin glargine 100 unit/mL 25 unit (0.25 mL) subcut QAM #10 mL 11/10/22 11/14/24 Rx subcutaneous solution (Lantus U-100 Insulin) pregabalin 75 mg capsule (Lyrica) 75 mg PO BID #60 caps 11/10/22 11/14/24 Rx acetaminophen 500 mg tablet 500 mg PO Q8H PRN pain 11/08/24 11/14/24 History (Tylenol Extra Strength) carvedilol 6.25 mg tablet (Coreg) 6.25 mg PO BID 11/08/24 11/14/24 History oxycodone 5 mg tablet 5 - 10 mg PO Q6H PRN 11/08/24 11/14/24 History moderate-severe pain sodium zirconium cyclosilicate 10 10 g PO UD 11/08/24 11/14/24 History gram oral powder packet (Lokelma) semaglutide 1 mg/dose (4 mg/3 mL) 1 mg subcut WK 11/11/24 11/14/24 History subcutaneous pen injector (Ozempic) enoxaparin 30 mg/0.3 mL 30 mg subcut DAILY 11/14/24 11/14/24 History subcutaneous syringe (Lovenox) oxycodone 5 mg tablet 5 mg PO Q6H PRN pain #20 tabs 11/15/24 Rx tramadol 50 mg tablet 50 mg PO Q6H PRN pain, moderate 11/15/24 Rx #30 tabs Patient History Medical History (Updated 11/14/24 @ 12:53 by Jared Pate DO) Carotid artery stenosis s/p right CEA 2004; moderate stenosis on 2017 doppler per cardiology office Bifascicular block ongoing since at least 2022 CKD (chronic kidney disease) stage 4, GFR 15-29 ml/min Frequent PVCs NICM (nonischemic cardiomyopathy) CAD (coronary artery disease) s/p multiple remote stents, CABG x5 (1995), CABG x3 (2018)- follows with [facility] [place] (Dr. Richardson Valenzuela) Neurogenic claudication due to lumbar spinal stenosis Hx of myocardial infarction (1995) believes only 1 mi in 1995, had 3 caths total, 2 CABG's, all at [facility] Anticoagulant long-term use on eliquis, states cardio will have him stop and start lovenox prior to surgery Bradycardia pt reports saw pcp 11/08/24 (Corin Shea at [facility]), heart rate running the 30's, pt. slightly dizzy, was sent for EKG at [facility], heart rate up to 60's, pt. states he just found out a good friend this morning and pt. was feeling anxious Anemia Peripheral neuropathy Macular degeneration of both eyes receives injections in eyes BPH (benign prostatic hyperplasia) HLD (hyperlipidemia) Hypertension Hx of upper gastrointestinal hemorrhage (2019) Hx of gastric ulcer (2019) bleeding stomach ulcer, hospitalized at [facility] required blood transfusions Diabetes mellitus, type 2 History of TIAs (1996) x 2 History of atrial fibrillation (04/2024) ablation 04/2024 Spinal stenosis History of anesthesia reaction woke up after recent cardiac ablation and pt states "i was strapped down and it really scared me" Ischemic cardiomyopathy Chronic back pain Congestive heart failure chronic systolic HF; follows with [facility] [place] (Dr. Richardson Valenzuela) Sleep apnea MEIR; no device Surgical History History of right-sided carotid endarterectomy (~2004) History of lumbar fusion L2-S1 decompression fusion 11/04/2022: GA: MAC#3, ETT#7.5 DVL x 1, Gr View 1 (per anesthesia record, pt in afib 120s prior to IV induction) History of heart artery stent 2nd heart cath sometime between [id number] and believes 2-3 stents at [facility] Hx of cataract extraction b/l History of tonsillectomy and adenoidectomy as a child Hx of appendectomy Hx of cardiac catheterization x3 [place],had ruptured artery during heart cath [id number] and believes 2-3 stents [facility] 3rd cath -CABG x3 (2018) - [facility] in [place]- follows with dr. alejandra and dr. hairston at [facility] (~6 months) History of cardiac radiofrequency ablation (RFA) (04/2024) [facility] in [place]- follows with dr. alejandra and dr. hairston at [facility] (~6 months) History of colonoscopy History of esophagogastroduodenoscopy (EGD) History of total left knee replacement S/P epidural steroid injection Hx of CABG (2019) CABG x5 (1995), CABG x3 (2018) - [facility] in [place]- follows with dr. alejandra and dr. hairston at [facility] (~6 months) History of elbow surgery left tendon History of arthroscopy of right knee Hx of repair of right rotator cuff x 2 Family History Other Family history non-contributory Social History Smoking Status: Former smoker Tobacco Type: Cigarettes Smoking End Date: 36 years ago; Second Hand Exposure: No; Do You Dip or Chew Tobacco: No; Tobacco Cessation Education Requested by Patient: No Hx Alcohol Use: Yes Hx Substance Use: No Preferred Language: Russian Communication Ability: Effective Cognos Lead Required: No Beliefs That Will Affect Care: Caodaism Caodaism Beliefs: anabaptism marital status: Current Living Situation: Spouse Other Information That Helps Us Care for You: No Feels Safe at Home: Yes Safety Concerns: Feels Safe At This Time Assistive Devices: Cane, Denture - Upper and Stair Lift Assistive Devices Comment: dental implants Physical Exam Constitutional: WD/WN, vitals as above Eyes: PERRL, conjunctivae normal, anicteric sclerae Respiratory: normal respiratory effort, lungs clear to auscultation Cardiovascular: RRR, no murmur, no edema Musculoskeletal: moves all extremities Psychiatric: A+Ox3, euthymic affect Results & Data Results & Data Vital Signs (Past 12 Hours) Vital Signs Temp Pulse Pulse Resp BP Pulse Ox O2 Del Method 11/14/24 16:10 36.4 C L 75 18 117/70 90 Room Air 11/14/24 15:40 36.3 C L 66 18 153/70 H 91 Room Air 11/14/24 15:10 36.4 C L 59 L 18 149/79 H 92 Room Air 11/14/24 14:55 65 16 154/76 H 97 Room Air 11/14/24 14:45 36.7 C 65 14 149/79 H 98 Room Air 11/14/24 14:35 65 16 158/85 H 98 Nasal Cannula 11/14/24 14:25 65 14 137/75 92 Room Air 11/14/24 14:15 64 18 134/99 98 Room Air 11/14/24 14:06 36.0 C L 70 12 167/86 H 98 Oxymask 11/14/24 10:47 36.5 C 71 20 147/84 H 95 Room Air O2 Flow Rate 11/14/24 16:10 11/14/24 15:40 11/14/24 15:10 11/14/24 14:55 0 11/14/24 14:45 0 11/14/24 14:35 2 11/14/24 14:25 0 11/14/24 14:15 0 11/14/24 14:06 8 11/14/24 10:47 PG Care Time/CCT Total # of Minutes Spent Total Time Spent with Patient: Total time spent is greater than 50% in coordination of care (as documented) at patient's floor/unit and/or counseling patient: Coding Level of Care Code 28111 IN/OBS CONSULT LVL 4,60M Diagnoses Sacroiliitis M46.1 Stage 3b chronic kidney disease N18.32 Chronic kidney disease stage 3 subtype: stage 3b (GFR 30-44) Diabetes mellitus, type 2 E11.9 (2) Chronic kidney disease, stage 3 Chronic kidney disease stage 3 subtype: stage 3b (GFR 30-44) Qualified Code(s): N18.32 - Chronic kidney disease, stage 3b
[2024-11-14] MEDS: carvediloL 6.25 MG TAB PO SCH (20:34)
[2024-11-14] MEDS: PANTOprazole 40 MG TAB PO SCH (20:34)
[2024-11-14] MEDS: ISOSORBIDE MONONITRATE 20 MG TAB PO SCH (20:34)
[2024-11-14] MEDS: INSULIN ASPART PER UNIT CHARGE SC SCH (20:34)
[2024-11-14] MEDS: PREGABALIN 75 MG CAP PO SCH (20:34)
[2024-11-14] MEDS: TAMSULOSIN HCL 0.4 MG CAP PO SCH (20:34)
[2024-11-14] MEDS: LANTUS PER UNIT CHARGE SC SCH (23:05)
[2024-11-15 08:06] VITALS: BP 152/64; PULSE 54; TEMP 98.4; O2SAT 96
[2024-11-15 08:07] LABS: Hematocrit (blood only) 39.9 % (42.0-52.0); Mean Corpuscular Hemoglobin 29.8 pg (25.0-34.0); Mean Corpuscular Hgb Conc 32.6 g/dL (32.0-36.0); Mean Corpuscular Volume 91.5 fL (80.0-100.0); Mean Platelet Volume 11.5 fL (9.4-12.4); Platelet Count 167 K/uL (130-400); RDW Coefficient of Variation 14.1 % (11.5-14.5); RDW Standard Deviation 47.6 fL (36.4-46.3); Red Blood Count 4.36 M/uL (4.70-6.10); White Blood Count 9.47 K/ul (4.8-10.8)
[2024-11-15 08:25] LABS: BUN Creatinine Ratio 19.5 (10-20); Calcium 9.5 mg/dl (8.6-10.3); Potassium 4.8 mmol/L (3.5-5.1)
[2024-11-15 08:44] LABS: Estimated Average Glucose 174 mg/dl; Hemoglobin A1C 7.7 % (4.5-5.6)
[2024-11-15] MEDS: ASPIRIN 81 MG ECTAB PO SCH (08:50)
[2024-11-15] MEDS: CHOLECALCIFEROL 25 MCG (1000 UNITS) TAB PO SCH (08:50)
[2024-11-15] MEDS: ATORVASTATIN 40 MG TAB PO SCH (08:50)
[2024-11-15] MEDS: FERROUS SULFATE 325 MG TAB PO SCH (08:51)
[2024-11-15] MEDS: ENOXAPARIN INJ 30 MG/0.3 ML SYR SQ SCH (08:51)
[2024-11-15] MEDS: CYANOCOBALAMIN (B-12) 500 MCG TABLET PO SCH (08:51)
[2024-11-15] MEDS: LANTUS PER UNIT CHARGE SC SCH (08:56)
[2024-11-15] MEDS ORDERED: LANTUS PER UNIT CHARGE SC SCH (09:00)
--- NOTE | 2024-11-15 09:36 | Discharge Summary ---
Date of Service November 15, 2024 Admission HPI Per Admitting Provider This is a 74-year-old male well-known to me the presents with chronic persistent sacroiliitis. After failing course of nonoperative care is here for surgical invention. Principal Diagnosis Sacroiliitis Discharge Data Allergies Allergy/AdvReac Type Severity Reaction Status Date / Time morphine Allergy Mild severe Verified 11/14/24 10:37 shaking dipyridamole Allergy Unknown listed in Verified 11/14/24 10:37 cardiology records aspirin-dipyridamole Allergy Unknown listed in Uncoded 11/14/24 10:37 cardiology records Consultations 11/14/24 15:55 Consult Internal Medicine Routine Procedures Performed Operation Date: 11/14/24 12:25 Actual Procedures p Right Sacroiliac Joint Fusion(Right) - Jared Pate DO Ordered Studies 11/14/24 12:25 FL sacrum Routine Hospital Course (1) Sacroiliitis: Patient underwent right SI joint fusion tolerated this well was taken to the orthopedic for postoperative. Postoperatively his pain was well-controlled. Tolerated physical therapy. Subsidy discharged home. Discharge orders instructions from the chart for further review. Total Time Total Time Spent Total Time Spent (In Minutes): 20 minutes Discharge Plan Discharge Items Patient Disposition: Home - Self-Care Reason For Visit: Sacroiliitis Discharge Diagnosis: Sacroiliitis Activity: As commented below Non-emergency contact: Primary Care Provider Call non-emergency contact if: you have any medication questions Follow-up/Referrals: Elle Bo CRNP [Primary Care Provider] - Diet: Regular Addtl Attending Provider Instructions: ACTIVITY RECOMMENDATIONS: SELF CARE INSTRUCTIONS AFTER CERVICAL FUSIONS 1. No smoking. Smoking drastically decreases the chance of a solid fusion. 2. No bending, lifting more than 5 pounds, or twisting (roll like a log when turning in bed). 3. You may shower 3 days after surgery. Thoroughly dry wound. Do not soak in the tub. 4. Cervical collar: Must be worn at all times including sleeping. You may remove the brace only to bath, eat and if you are sitting in a recliner. 5. Please walk as much as you can for exercise. Gradually increase the distance that you walk as your endurance increases. 6. You may return to previous diet. SPECIAL CARE INSTRUCTIONS: VERY IMPORTANT TO READ AND REVIEW A. Do not take any anti-inflammatory medications (i.e. Indocin, Advil, Aspirin, Naprosyn, Aleve, Motrin, etc.) as these may inhibit the chance of a solid fusion. Tylenol is okay to take. B. Your surgical incision has been closed with a cosmetic suture under the skin that will dissolve in about 6 weeks. In 14 days, you can use a pair of clean scissors and cut the suture that is left outside of the skin at the ends of your incision. C. Complications are uncommon, but please contact us if you have any signs or symptoms of: 1. wound infection (fever higher than 102.5 degrees F, redness, separation of wound, drainage, or increasing pain from the incision) 2. blood clots in legs (pain, swelling, redness and warmth in legs) 3. urinary tract infection (fever higher than 102.5 degrees, burning upon urination or increased frequency of urination) 4. nerve problems (inability to walk on your toes or heels, numbness, loss of bowel or bladder control) 5. any other symptoms that concern you. D. Please call the office at if you have any concerns or questions about your operation or recovery. MANAGING PAIN AFTER SPINAL SURGERY 1. Narcotic medication is intended for short-term use and will be provided for surgical pain. Surgical pain usually lasts for a period of 4-6 weeks. Narcotic medication includes Percocet, Vicodin, Darvocet, Tylenol #3 or Lortab. 2. Longer-term pain is more appropriately treated with non-narcotic medication such as Tylenol ES. 3. Muscle spasm is not appropriately treated with narcotics. Muscle relaxers such as Soma, Flexeril or Skelaxin can be used along with Tylenol ES. 4. Remember that we all live with some "aches and pains". This is not unusual or uncommon after an injury or as we get older. 5. We will provide appropriate medication within the normal guidelines of their prescribed use. We will also be very cautious and aware of potential abuse and extended duration of patients' medication needs. 6. Please allow 2-3 days to process refills. Prescriptions will not be mailed but must be picked up at the office. FOLLOW UP VISIT: Keep your scheduled follow-up appointment. Any questions, please call the office at . Pending Studies at Discharge: No Stand-Alone Forms: My [facility] untapt, Smoking Cessation Medications and DC Order Prescriptions: New tramadol 50 mg tablet 50 mg PO Q6H PRN (Reason: pain, moderate) Qty: 30 0RF oxycodone 5 mg tablet 5 mg PO Q6H PRN (Reason: pain) Qty: 20 0RF Continued tamsulosin [Flomax] 0.4 mg Capsule 0.4 mg PO HS cholecalciferol (vitamin D3) [Vitamin D3] 25 mcg (1,000 unit) Capsule 25 mcg PO QAM ferrous sulfate 324 mg (65 mg iron) Tablet,Delayed Release (Dr/Ec) 324 mg PO QAM atorvastatin [Lipitor] 80 mg Tablet 40 mg PO QAM aspirin 81 mg Tablet,Delayed Release (Dr/Ec) 81 mg PO QAM pantoprazole 40 mg Tablet,Delayed Release (Dr/Ec) 40 mg PO BID isosorbide mononitrate 10 mg Tablet 10 mg PO TID Rx Instructions: give doses 7 hrs apart pregabalin [Lyrica] 75 mg Capsule 75 mg PO BID Qty: 60 0RF insulin aspart U-100 [Novolog U-100 Insulin aspart] 100 unit/mL Solution See Rx Instructions .ROUTE .COMPLEX Qty: 10 0RF Rx Instructions: Novolog sliding scale qac and qhs; Goal range 110-140, Correction factor 20mg/dl/unit, Carb ratio 6 grams/uni cyanocobalamin (vitamin B-12) 1,000 mcg capsule 1,000 mcg PO DAILY Qty: 30 0RF insulin glargine [Lantus U-100 Insulin] 100 unit/mL Solution 25 unit SUBCUT QAM Qty: 10 0RF Lokelma 10 gram Powder In Packet 10 g PO UD Rx Instructions: thu, , , thu carvedilol [Coreg] 6.25 mg tablet 6.25 mg PO BID Rx Instructions: must administer with a meal/food acetaminophen [Tylenol Extra Strength] 500 mg tablet 500 mg PO Q8H PRN (Reason: pain) oxycodone 5 mg tablet 5 - 10 mg PO Q6H PRN (Reason: moderate-severe pain) Ozempic 1 mg/dose (4 mg/3 mL) Pen Injector 1 mg SUBCUT WK Rx Instructions: on [place]aye enoxaparin [Lovenox] 30 mg/0.3 mL Syringe 30 mg SUBCUT DAILY Rx Instructions: Patient unsure of dose Held Eliquis 5 mg Tablet 5 mg PO BID Hold Instructions: Resume on 11/17/24. Discharge Orders: Discharge Order (Routine); Ordered 11/15/24 Ordered By: Jared Reyes/Other Patient Handouts: Managing Type 2 Diabetes Admission Data Admit Date/Time: 11/14/24 14:01 Attending Provider: Jared Pate Admit Provider: Jared Pate Primary Care Provider: Elle Bo Other Providers: Emery Patel
[2024-11-15] MEDS: oxyCODONE HCL IR 5 MG TAB (IMMEDIATE RELEASE) PO PRN (11:41)
[2024-11-16] MEDS ORDERED: bisacodyL 10 MG SUPP PR PRN (13:58)
== END 2024-11-15 12:30 | disposition home or self-care (01) | DRG 451 ==
LOC: ASU 10:03 → 3W 14:01